=== PATIENT | male | born 1955 | race Caucasian/White ===

== ENCOUNTER 2016-07-24 14:43 | Inpatient (IN) | payer MEDICAID ==
[2016-07-24] VITALS (9 sets, daily range): BP systolic 85–152; BP diastolic 45–109
[~2016-07-24] VITALS: Ht 175.3 cm; Wt 95.3 kg
[~2016-07-24 14:43] MED LIST: ACID1TAB12 GT; AMIN30LI2 GT; BLOO-129 IN; INSU100V10 SQ; INSU100V26 SQ; LISI10TA5 GT; NUT.237L67 GT; OMEP40CA37 GT; OXCA600T5 GT; PRED5TAB GT; TRAM50TA2 GT; TYLENOL LI160 MG/5 M GT; VIT1TABL46 GT
[2016-07-24] MEDS ORDERED: IPRA0.2S9 IH ×2 (15:23)
[2016-07-24] MEDS ORDERED: ZINC220C8 GT (15:23)
[2016-07-24] MEDS ORDERED: LEVE100S GT (15:23)
[2016-07-24] MEDS ORDERED: ALBU2.5V12 IH ×2 (15:23)
[2016-07-24] MEDS ORDERED: PRED10TA GT (15:23)
[2016-07-24] MEDS ORDERED: ERGO50003 GT (15:23)
[2016-07-24] MEDS ORDERED: METO5SOL2 GT (15:23)
[2016-07-24 15:38] LABS: BASOPHILS % (AUTO) 0.1 % (0.0-2.0); DIFF TOTAL % 100 %; EOSINOPHILS % (AUTO) 0.1 % (0.0-6.0); HEMATOCRIT 25 % (39-51); HEMOGLOBIN 7.8 g/dL (13.5-17.5); LYMPHOCYTES # (AUTO) 0.7 /CMM (0.8-4.8); LYMPHOCYTES % (AUTO) 2.6 % (20.0-44.0); MEAN CORPUSCULAR HEMOGLOBIN 30 PG (26.0-33.0); MEAN CORPUSCULAR HGB CONC 32 g/dl (31.0-36.0); MEAN CORPUSCULAR VOLUME 93 fL (80-96); MONOCYTES # (AUTO) 0.3 /CMM (0.1-1.30); MONOCYTES % (AUTO) 1.2 % (2.0-12.0); NEUTROPHILS # (AUTO) 27.2 /CMM (1.8-8.9); PLATELET COUNT (AUTO) 425 /CMM (150-450); RED BLOOD CELL COUNT(AUTO) 2.63 MIL/uL (4.5-6.0); WHITE BLOOD COUNT (AUTO) 28.2 K/uL (4.3-11.0)
[2016-07-24 15:50] LABS: CALCIUM, SERUM 9.8 mg/dL (8.5-10.1); CREATININE 2.9 mg/dL (0.6-1.3); POTASSIUM 4.1 mmol/L (3.5-5.1)
[2016-07-24 15:53] LABS: INR 1.04 (0.87-1.13); PROTHROMBIN TIME 10.9 SECS (9.5-12.7)
[2016-07-24 15:55] LABS: ALBUMIN 2.3 g/dL (3.4-5.0); BILIRUBIN,DIRECT 0.2 mg/dL (0.0-0.2); BILIRUBIN,TOTAL 0.4 mg/dL (0.2-1.0); INDIRECT BILIRUBIN 0.2 mg/dL (0.0-1.1); TOTAL PROTEIN, SERUM 7.8 g/dL (6.4-8.2)
[2016-07-24] MEDS ORDERED: VANCOMYCIN 1 GM in IV D5W 250 ML IV ONE (16:30)
[2016-07-24] MEDS ORDERED: IV NS 0.9% 1,000 ML BAG IV ONE (16:30)
[2016-07-24] MEDS ORDERED: LEVOFLOXACIN 750 MG /D5W 150ML 150 ML IV ONE ×2 (16:30→16:42)
[2016-07-24] MEDS ORDERED: IV SET PRIMARY 1 EA INFUS.SET MC ONE ×2 (16:43→16:44)
[2016-07-24] MEDS ORDERED: IV NS 0.9% 3,000 ML ONE (16:43)
[2016-07-24] MEDS ORDERED: IV SET PRIMARY PUMP SET 1 EA INFUS.SET MC ONE (16:43)
[2016-07-24 16:56] LABS: LACTIC ACID 1.7 mmol/L (0.4-2.0)
[2016-07-24] MEDS ORDERED: PIPERACILLIN /TAZOBACTAM 3.375 G in IV D5W 50 ML IV ONE (17:00)
[2016-07-24 17:27] LABS: BAND % (MANUAL) 5 % (0.0-5.0); EOSINOPHILS % (MANUAL) 1 % (0-4); LYMPHOCYTES % (MANUAL) 4 % (16-48); METAMYELOCYTES % 3 % (0-0); MYELOCYTES % 2 % (0-0)
[2016-07-24 17:32] LABS: TROPONIN I < 0.017 ng/mL (0.00-0.056)
[2016-07-24] MEDS ORDERED: IV NS 0.9% 250 ML IV ONE ×2 (17:32→20:43)
[2016-07-24] MEDS ORDERED: BLOOD IV SET 1 EA INFUS.SET MC ONE (20:43)
[2016-07-25] VITALS (7 sets, daily range): BP systolic 85–110; BP diastolic 48–63
[2016-07-25] MEDS ORDERED: PIPERACILLIN /TAZOBACTAM 2.25 G VIAL IV ONE (00:25)
[2016-07-25] MEDS ORDERED: SECONDARY IV SET 1 EA INFUS.SET MC ONE ×6 (00:26→22:35)
[2016-07-25] MEDS ORDERED: IV D5W 50 ML IV ONE (00:26)
[2016-07-25] MEDS ORDERED: IV SET PRIMARY PUMP SET 1 EA INFUS.SET MC ONE (00:26)
[2016-07-25] MEDS ORDERED: IV NS 0.9% 250 ML IV ONE (00:27)
[2016-07-25] MEDS ORDERED: INSULIN REGULAR, HUMAN 100 UNIT/ML 3 ML VIAL SQ PRN (01:30)
[2016-07-25] MEDS ORDERED: DEXTROSE 50%-WATER 50 ML DISP.SYRIN IV PRN (01:30)
[2016-07-25] MEDS ORDERED: DOCUSATE SODIUM 100 MG CAPSULE PO PRN (02:00)
[2016-07-25] MEDS ORDERED: ACETAMINOPHEN 650 MG/20.3 ML UDC ONE (06:00)
[2016-07-25] MEDS ORDERED: ACETAMINOPHEN LIQUID 160 MG/5 ML BOTTLE GT PRN ×2 (06:00)
[2016-07-25] MEDS: BLOOD SUGAR DIAGNOSTIC 1 EACH STRIP IN SCH ×4 (06:55→23:53)
[2016-07-25 06:58] LABS: ALBUMIN 1.9 g/dL (3.4-5.0); BILIRUBIN,DIRECT 0.4 mg/dL (0.0-0.2); BILIRUBIN,TOTAL 0.7 mg/dL (0.2-1.0); CREATININE 3.4 mg/dL (0.6-1.3); INDIRECT BILIRUBIN 0.3 mg/dL (0.0-1.1); TOTAL PROTEIN, SERUM 6.4 g/dL (6.4-8.2)
[2016-07-25 07:07] LABS: THYROID STIMULATING HORMONE 1.1 uIU/mL (0.358-3.74)
[2016-07-25 08:11] LABS: BASOPHILS % (AUTO) 0.1 % (0.0-2.0); DIFF TOTAL % 100 %; HEMATOCRIT 21 % (39-51); LYMPHOCYTES # (AUTO) 1.1 /CMM (0.8-4.8); LYMPHOCYTES % (AUTO) 2.7 % (20.0-44.0); MEAN CORPUSCULAR HEMOGLOBIN 29 PG (26.0-33.0); MEAN CORPUSCULAR HGB CONC 33 g/dl (31.0-36.0); MEAN CORPUSCULAR VOLUME 89 fL (80-96); MONOCYTES # (AUTO) 0.8 /CMM (0.1-1.30); MONOCYTES % (AUTO) 2.1 % (2.0-12.0); NEUTROPHILS # (AUTO) 37.1 /CMM (1.8-8.9); NEUTROPHILS % (AUTO) 95.1 % (43.0-81.0); PLATELET COUNT (AUTO) 280 /CMM (150-450); RED BLOOD CELL COUNT(AUTO) 2.38 MIL/uL (4.5-6.0)
[2016-07-25] MEDS: PIPERACILLIN /TAZOBACTAM 2.25 G in IV D5W 50 ML IV SCH ×4 (08:15→12:22)
[2016-07-25] MEDS: LEVETIRACETAM SOL (5 ML) 100 MG/ML UDC PO SCH ×3 (08:43→16:16)
[2016-07-25] MEDS ORDERED: ACETAMINOPHEN 650 MG/20.3 ML UDC PO PRN (09:00)
[2016-07-25 09:23] LABS: BAND % (MANUAL) 23 % (0.0-5.0); LYMPHOCYTES % (MANUAL) 3 % (16-48)
[2016-07-25 09:24] LABS: ANISOCYTOSIS 1+; HYPOCHROMASIA 1+; PLATELET ESTIMATE ADEQUATE
[2016-07-25] MEDS: VIT B CMPLX 3/FA/VIT C/BIOTIN 1 TAB TABLET GT SCH (10:30)
[2016-07-25] MEDS: ZINC SULFATE 220 MG CAPSULE GT SCH (10:30)
[2016-07-25] MEDS ORDERED: METOCLOPRAMIDE HCL 10 MG/10 ML UDC GT PRN (10:30)
[2016-07-25] MEDS ORDERED: ALBUTEROL FS 2.5 MG/0.5 ML VIAL.NEB IH PRN (10:30)
[2016-07-25] MEDS ORDERED: ACETAMINOPHEN 640 MG GT PRN (10:30)
[2016-07-25] MEDS ORDERED: IPRATROPIUM NEB FS 0.5 MG/2.5 ML AMPUL.NEB IH PRN (11:00)
[2016-07-25] MEDS: LISINOPRIL (10MG) 10 MG TABLET GT SCH (12:23)
[2016-07-25] MEDS: predniSONE 10 MG TABLET GT SCH (12:23)
[2016-07-25] MEDS: PROSOURCE / PROSTAT (PYXIS) 30 ML UDC GT SCH ×2 (12:23→16:16)
[2016-07-25] MEDS: OXCARBAZEPINE 150 MG TABLET GT SCH ×2 (12:24→21:02)
[2016-07-25] MEDS: ALBUTEROL FS 2.5 MG/0.5 ML VIAL.NEB IH SCH ×2 (13:52→20:02)
[2016-07-25] MEDS: IPRATROPIUM NEB FS 0.5 MG/2.5 ML AMPUL.NEB IH SCH ×2 (13:52→20:02)
[2016-07-25] MEDS ORDERED: Z GUARD REMEDY 2 OZ OINT TP PRN (14:00)
[2016-07-25] MEDS ORDERED: METRONIDAZOLE 500 MG TABLET GT SCH (14:30)
[2016-07-25] MEDS ORDERED: FEE PK DOSING 1 MIN EA MC ONE ×2 (14:47)
[2016-07-25] MEDS: Z GUARD REMEDY 2 OZ OINT TP SCH ×2 (14:49→17:07)
[2016-07-25] MEDS: NEOMY SULF/BACITRAC ZN/POLY 15 GM TUBE TP SCH (15:00)
[2016-07-25] MEDS ORDERED: VANCOMYCIN 1 GM in IV D5W 250 ML IV ONE (16:00)
[2016-07-25] MEDS ORDERED: GENTAMICIN 120 MG in IV D5W 100 ML IV ONE (17:00)
[2016-07-25] MEDS ORDERED: DOSING PER PHARMACY-AMIKACI IV XX PRN (19:00)
[2016-07-25] MEDS: EPOETIN ALFA (10,000 UNIT) 10,000 UNIT/ML VIAL SQ PRN (20:56)
[2016-07-25] MEDS ORDERED: AMIKACIN 500 MG in IV D5W 100 ML IV ONE (21:00)
[2016-07-25] MEDS: ATORVASTATIN 10 MG TABLET PO SCH (21:02)
[2016-07-25] MEDS: METRONIDAZOLE 500MG/ NS 100ML 500 MG in PREMIX 1 EA IV SCH (21:02)
[2016-07-25] MEDS: ACIDOPHILUS/BULGARICUS 1 EACH TAB.CHEW GT SCH (21:02)
[2016-07-25] MEDS: INSULIN DETEMIR 100 UNIT/ML CARTRIDGE SQ SCH (21:08)
[2016-07-26] VITALS (12 sets, daily range): BP systolic 99–135; BP diastolic 43–78
[2016-07-26] MEDS: ALBUTEROL FS 2.5 MG/0.5 ML VIAL.NEB IH SCH ×4 (01:41→19:10)
[2016-07-26] MEDS: IPRATROPIUM NEB FS 0.5 MG/2.5 ML AMPUL.NEB IH SCH ×4 (01:41→19:10)
[2016-07-26] MEDS ORDERED: IV NS 0.9% 250 ML IV ONE ×3 (01:58→07:22)
[2016-07-26] MEDS ORDERED: BLOOD IV SET 1 EA INFUS.SET MC ONE ×2 (01:58→07:20)
[2016-07-26] MEDS: METRONIDAZOLE 500MG/ NS 100ML 500 MG in PREMIX 1 EA IV SCH ×3 (05:47→21:29)
[2016-07-26] MEDS: BLOOD SUGAR DIAGNOSTIC 1 EACH STRIP IN SCH ×3 (05:50→18:02)
[2016-07-26] MEDS ORDERED: INSULIN REGULAR, HUMAN 100 UNIT/ML 3 ML VIAL SQ PRN (06:00)
[2016-07-26] MEDS ORDERED: Medication Not On Formulary EA (Omeprazole 40 MG) GT SCH (07:30)
[2016-07-26 07:52] LABS: BASOPHILS # (AUTO) 0.1 /CMM (0.0-0.2); BASOPHILS % (AUTO) 0.3 % (0.0-2.0); DIFF TOTAL % 100 %; EOSINOPHILS # (AUTO) 0.1 /CMM (0.0-0.7); EOSINOPHILS % (AUTO) 0.3 % (0.0-6.0); HEMATOCRIT 25 % (39-51); HEMOGLOBIN 8.2 g/dL (13.5-17.5); LYMPHOCYTES # (AUTO) 1.9 /CMM (0.8-4.8); LYMPHOCYTES % (AUTO) 10.3 % (20.0-44.0); MEAN CORPUSCULAR HEMOGLOBIN 30 PG (26.0-33.0); MEAN CORPUSCULAR HGB CONC 34 g/dl (31.0-36.0); MEAN CORPUSCULAR VOLUME 89 fL (80-96); MONOCYTES # (AUTO) 1.4 /CMM (0.1-1.30); MONOCYTES % (AUTO) 7.6 % (2.0-12.0); NEUTROPHILS # (AUTO) 14.7 /CMM (1.8-8.9); NEUTROPHILS % (AUTO) 81.5 % (43.0-81.0); PLATELET COUNT (AUTO) 280 /CMM (150-450); RED BLOOD CELL COUNT(AUTO) 2.77 MIL/uL (4.5-6.0)
[2016-07-26 08:06] LABS: CALCIUM, SERUM 8.8 mg/dL (8.5-10.1); CREATININE 3.3 mg/dL (0.6-1.3); POTASSIUM 3.4 mmol/L (3.5-5.1)
[2016-07-26] MEDS: PROSOURCE / PROSTAT (PYXIS) 30 ML UDC GT SCH ×3 (08:45→17:23)
[2016-07-26] MEDS: OXCARBAZEPINE 150 MG TABLET GT SCH ×2 (08:45→21:29)
[2016-07-26] MEDS: ZINC SULFATE 220 MG CAPSULE GT SCH (08:45)
[2016-07-26] MEDS: ACIDOPHILUS/BULGARICUS 1 EACH TAB.CHEW GT SCH ×2 (08:45→21:28)
[2016-07-26] MEDS: LEVETIRACETAM SOL (5 ML) 100 MG/ML UDC PO SCH ×3 (08:45→17:23)
[2016-07-26] MEDS: VIT B CMPLX 3/FA/VIT C/BIOTIN 1 TAB TABLET GT SCH (08:45)
[2016-07-26] MEDS: PANTOPRAZOLE 40 MG/PACK PACK GT SCH (08:45)
[2016-07-26] MEDS: predniSONE 10 MG TABLET GT SCH (08:45)
[2016-07-26] MEDS: Z GUARD REMEDY 2 OZ OINT TP SCH ×2 (08:46→17:24)
[2016-07-26] MEDS: NEOMY SULF/BACITRAC ZN/POLY 15 GM TUBE TP SCH (08:46)
[2016-07-26] MEDS: LISINOPRIL (10MG) 10 MG TABLET GT SCH (10:50)
[2016-07-26] MEDS: INSULIN REGULAR, HUMAN 100 UNIT/ML 3 ML VIAL SQ PRN (18:05)
[2016-07-26] MEDS: AMIKACIN 500 MG in IV D5W 100 ML IV PRN (18:45)
[2016-07-26] MEDS: ATORVASTATIN 10 MG TABLET PO SCH (21:28)
[2016-07-26] MEDS: INSULIN DETEMIR 100 UNIT/ML CARTRIDGE SQ SCH (21:42)
[2016-07-27] VITALS: BP 134/91
[2016-07-27] MEDS: BLOOD SUGAR DIAGNOSTIC 1 EACH STRIP IN SCH ×4 (00:44→17:43)
[2016-07-27] MEDS: INSULIN REGULAR, HUMAN 100 UNIT/ML 3 ML VIAL SQ PRN ×4 (00:46→17:46)
[2016-07-27] MEDS: IPRATROPIUM NEB FS 0.5 MG/2.5 ML AMPUL.NEB IH SCH ×4 (01:10→19:26)
[2016-07-27] MEDS: ALBUTEROL FS 2.5 MG/0.5 ML VIAL.NEB IH SCH ×4 (01:10→19:26)
[2016-07-27 04:00] VITALS: BP 144/79
[2016-07-27] MEDS: METRONIDAZOLE 500MG/ NS 100ML 500 MG in PREMIX 1 EA IV SCH ×3 (05:18→21:01)
[2016-07-27 07:36] LABS: BASOPHILS % (AUTO) 0.4 % (0.0-2.0); DIFF TOTAL % 100 %; EOSINOPHILS # (AUTO) 0.1 /CMM (0.0-0.7); EOSINOPHILS % (AUTO) 0.6 % (0.0-6.0); HEMATOCRIT 26 % (39-51); HEMOGLOBIN 8.6 g/dL (13.5-17.5); LYMPHOCYTES # (AUTO) 1.7 /CMM (0.8-4.8); LYMPHOCYTES % (AUTO) 13.6 % (20.0-44.0); MEAN CORPUSCULAR HEMOGLOBIN 30 PG (26.0-33.0); MEAN CORPUSCULAR HGB CONC 34 g/dl (31.0-36.0); MEAN CORPUSCULAR VOLUME 88 fL (80-96); MONOCYTES # (AUTO) 1.3 /CMM (0.1-1.30); MONOCYTES % (AUTO) 9.8 % (2.0-12.0); NEUTROPHILS # (AUTO) 9.6 /CMM (1.8-8.9); NEUTROPHILS % (AUTO) 75.6 % (43.0-81.0); PLATELET COUNT (AUTO) 258 /CMM (150-450); WHITE BLOOD COUNT (AUTO) 12.7 K/uL (4.3-11.0)
[2016-07-27 07:40] LABS: CALCIUM, SERUM 8.2 mg/dL (8.5-10.1); CREATININE 3.1 mg/dL (0.6-1.3)
[2016-07-27 08:00] VITALS: BP 112/72
[2016-07-27 08:09] LABS: POTASSIUM 2.8 mmol/L (3.5-5.1)
[2016-07-27] MEDS: ZINC SULFATE 220 MG CAPSULE GT SCH (09:13)
[2016-07-27] MEDS: PROSOURCE / PROSTAT (PYXIS) 30 ML UDC GT SCH ×3 (09:13→17:42)
[2016-07-27] MEDS: OXCARBAZEPINE 150 MG TABLET GT SCH ×2 (09:14→21:01)
[2016-07-27] MEDS: ACIDOPHILUS/BULGARICUS 1 EACH TAB.CHEW GT SCH ×2 (09:14→21:01)
[2016-07-27] MEDS: VIT B CMPLX 3/FA/VIT C/BIOTIN 1 TAB TABLET GT SCH (09:14)
[2016-07-27] MEDS: PANTOPRAZOLE 40 MG/PACK PACK GT SCH (09:14)
[2016-07-27] MEDS: predniSONE 10 MG TABLET GT SCH (09:14)
[2016-07-27] MEDS: LEVETIRACETAM SOL (5 ML) 100 MG/ML UDC PO SCH ×3 (09:14→17:42)
[2016-07-27] MEDS: NEOMY SULF/BACITRAC ZN/POLY 15 GM TUBE TP SCH (09:15)
[2016-07-27] MEDS: Z GUARD REMEDY 2 OZ OINT TP SCH ×2 (09:15→17:42)
[2016-07-27] MEDS: LISINOPRIL (10MG) 10 MG TABLET GT SCH (09:15)
[2016-07-27] MEDS ORDERED: POTASSIUM CHLORIDE 20 MEQ TAB.PRT.SR PO ONE (11:30)
[2016-07-27 12:00] VITALS: BP 139/61
[2016-07-27] MEDS: VANCOMYCIN 500 MG in IV D5W 100 ML IV PRN (13:34)
[2016-07-27] MEDS: AMIKACIN 500 MG in IV D5W 100 ML IV PRN (15:32)
[2016-07-27 16:00] VITALS: BP 116/50
[2016-07-27 20:00] VITALS: BP 140/80
[2016-07-27] MEDS: ATORVASTATIN 10 MG TABLET PO SCH (21:01)
[2016-07-27] MEDS: INSULIN DETEMIR 100 UNIT/ML CARTRIDGE SQ SCH (21:14)
[2016-07-28] VITALS: BP 138/79
[2016-07-28] MEDS: IPRATROPIUM NEB FS 0.5 MG/2.5 ML AMPUL.NEB IH SCH ×4 (00:54→19:15)
[2016-07-28] MEDS: ALBUTEROL FS 2.5 MG/0.5 ML VIAL.NEB IH SCH ×4 (00:54→19:15)
[2016-07-28 04:00] VITALS: BP 141/94
[2016-07-28] MEDS: BLOOD SUGAR DIAGNOSTIC 1 EACH STRIP IN SCH ×5 (05:26→23:44)
[2016-07-28] MEDS: METRONIDAZOLE 500MG/ NS 100ML 500 MG in PREMIX 1 EA IV SCH ×3 (05:27→21:23)
[2016-07-28 06:55] LABS: CALCIUM, SERUM 8.5 mg/dL (8.5-10.1); CREATININE 3.4 mg/dL (0.6-1.3); POTASSIUM 3.3 mmol/L (3.5-5.1)
[2016-07-28] MEDS: PANTOPRAZOLE 40 MG/PACK PACK GT SCH (06:55)
[2016-07-28] MEDS: TRAMADOL HCL 50 MG TABLET GT PRN (06:55)
[2016-07-28] MEDS: ACETAMINOPHEN 650 MG/20.3 ML UDC GT PRN ×2 (06:55→13:55)
[2016-07-28 08:00] VITALS: BP 122/60
[2016-07-28] MEDS: OXCARBAZEPINE 150 MG TABLET GT SCH ×2 (08:39→21:23)
[2016-07-28] MEDS: ERGOCALCIFEROL (VITAMIN D 2) 50,000 UNIT CAPSULE GT SCH (08:39)
[2016-07-28] MEDS: ACIDOPHILUS/BULGARICUS 1 EACH TAB.CHEW GT SCH ×2 (08:39→21:23)
[2016-07-28] MEDS: ZINC SULFATE 220 MG CAPSULE GT SCH (08:40)
[2016-07-28] MEDS: PROSOURCE / PROSTAT (PYXIS) 30 ML UDC GT SCH ×3 (08:40→17:27)
[2016-07-28] MEDS: VIT B CMPLX 3/FA/VIT C/BIOTIN 1 TAB TABLET GT SCH (08:40)
[2016-07-28] MEDS: LEVETIRACETAM SOL (5 ML) 100 MG/ML UDC PO SCH ×3 (08:40→17:27)
[2016-07-28] MEDS: LISINOPRIL (10MG) 10 MG TABLET GT SCH (08:40)
[2016-07-28] MEDS: predniSONE 10 MG TABLET GT SCH (08:41)
[2016-07-28] MEDS: Z GUARD REMEDY 2 OZ OINT TP SCH ×2 (08:42→17:28)
[2016-07-28] MEDS: NEOMY SULF/BACITRAC ZN/POLY 15 GM TUBE TP SCH (08:42)
[2016-07-28] MEDS ORDERED: CHOLECALCIFEROL 1,000 UNIT TABLET (VIT D3) PO SCH (09:00)
[2016-07-28 12:00] VITALS: BP 76/42
[2016-07-28] MEDS ORDERED: IV NS 0.9% 250 ML IV ONE (12:00)
[2016-07-28 16:00] VITALS: BP 112/45
[2016-07-28] MEDS: INSULIN REGULAR, HUMAN 100 UNIT/ML 3 ML VIAL SQ PRN ×2 (17:33→23:46)
[2016-07-28 20:00] VITALS: BP_SYST 99; BP_DIAS 39; BP_DIAS 54
[2016-07-28] MEDS: RENAL NOVASOURCE 1,000 ML BOTTLE GT PRN (21:22)
[2016-07-28] MEDS: ATORVASTATIN 10 MG TABLET PO SCH (21:23)
[2016-07-28] MEDS: INSULIN DETEMIR 100 UNIT/ML CARTRIDGE SQ SCH (21:27)
[2016-07-29] VITALS (8 sets, daily range): BP systolic 97–152; BP diastolic 41–71
[2016-07-29] MEDS: IPRATROPIUM NEB FS 0.5 MG/2.5 ML AMPUL.NEB IH SCH ×4 (01:20→19:12)
[2016-07-29] MEDS: ALBUTEROL FS 2.5 MG/0.5 ML VIAL.NEB IH SCH ×4 (01:20→19:12)
[2016-07-29] MEDS: BLOOD SUGAR DIAGNOSTIC 1 EACH STRIP IN SCH ×4 (05:13→23:03)
[2016-07-29] MEDS: INSULIN REGULAR, HUMAN 100 UNIT/ML 3 ML VIAL SQ PRN ×4 (05:15→23:01)
[2016-07-29] MEDS: METRONIDAZOLE 500MG/ NS 100ML 500 MG in PREMIX 1 EA IV SCH ×3 (05:18→21:35)
[2016-07-29] MEDS ORDERED: IV SET PRIMARY PUMP SET 1 EA INFUS.SET MC ONE (05:34)
[2016-07-29] MEDS ORDERED: IV NS 0.9% 250 ML IV ONE (05:34)
[2016-07-29] MEDS: PANTOPRAZOLE 40 MG/PACK PACK GT SCH (06:52)
[2016-07-29 07:19] LABS: CALCIUM, SERUM 8.2 mg/dL (8.5-10.1); CREATININE 4.5 mg/dL (0.6-1.3); POTASSIUM 3.5 mmol/L (3.5-5.1)
[2016-07-29 07:38] LABS: DIFF TOTAL % 100 %; EOSINOPHILS # (AUTO) 0.2 /CMM (0.0-0.7); EOSINOPHILS % (AUTO) 0.6 % (0.0-6.0); HEMATOCRIT 30 % (39-51); HEMOGLOBIN 9.9 g/dL (13.5-17.5); LYMPHOCYTES # (AUTO) 1.4 /CMM (0.8-4.8); LYMPHOCYTES % (AUTO) 4.3 % (20.0-44.0); MEAN CORPUSCULAR HEMOGLOBIN 30 PG (26.0-33.0); MEAN CORPUSCULAR HGB CONC 34 g/dl (31.0-36.0); MEAN CORPUSCULAR VOLUME 91 fL (80-96); MONOCYTES % (AUTO) 2.9 % (2.0-12.0); NEUTROPHILS # (AUTO) 30.1 /CMM (1.8-8.9); NEUTROPHILS % (AUTO) 92.2 % (43.0-81.0); PLATELET COUNT (AUTO) 287 /CMM (150-450); RED BLOOD CELL COUNT(AUTO) 3.25 MIL/uL (4.5-6.0)
[2016-07-29] MEDS: LEVETIRACETAM SOL (5 ML) 100 MG/ML UDC PO SCH ×3 (08:47→17:25)
[2016-07-29] MEDS: ZINC SULFATE 220 MG CAPSULE GT SCH (08:48)
[2016-07-29] MEDS: ACIDOPHILUS/BULGARICUS 1 EACH TAB.CHEW GT SCH ×2 (08:48→21:36)
[2016-07-29] MEDS: VIT B CMPLX 3/FA/VIT C/BIOTIN 1 TAB TABLET GT SCH (08:48)
[2016-07-29] MEDS: LISINOPRIL (10MG) 10 MG TABLET GT SCH (08:48)
[2016-07-29] MEDS: PROSOURCE / PROSTAT (PYXIS) 30 ML UDC GT SCH ×3 (08:48→17:25)
[2016-07-29] MEDS: OXCARBAZEPINE 150 MG TABLET GT SCH ×2 (08:51→21:35)
[2016-07-29] MEDS: Z GUARD REMEDY 2 OZ OINT TP SCH ×2 (08:51→17:30)
[2016-07-29] MEDS: predniSONE 10 MG TABLET GT SCH (08:51)
[2016-07-29] MEDS: NEOMY SULF/BACITRAC ZN/POLY 15 GM TUBE TP SCH (08:52)
[2016-07-29 09:04] LABS: WHITE BLOOD COUNT (AUTO) 32.6 K/uL (4.3-11.0)
[2016-07-29 12:25] LABS: LYMPHOCYTES % (MANUAL) 4 % (16-48); PLATELET ESTIMATE ADEQUATE
[2016-07-29] MEDS ORDERED: SECONDARY IV SET 1 EA INFUS.SET MC ONE (12:54)
[2016-07-29] MEDS: COLISTIMETHATE SODIUM 100 MG in IV NS 0.9% 50 ML IV SCH (18:09)
[2016-07-29] MEDS: VANCOMYCIN 500 MG in IV D5W 100 ML IV PRN (18:09)
[2016-07-29] MEDS: ATORVASTATIN 10 MG TABLET PO SCH (21:36)
[2016-07-29] MEDS: INSULIN DETEMIR 100 UNIT/ML CARTRIDGE SQ SCH (23:00)
[2016-07-30] VITALS (9 sets, daily range): BP systolic 98–122; BP diastolic 38–58
[2016-07-30] MEDS: ALBUTEROL FS 2.5 MG/0.5 ML VIAL.NEB IH SCH ×4 (01:45→20:01)
[2016-07-30] MEDS: IPRATROPIUM NEB FS 0.5 MG/2.5 ML AMPUL.NEB IH SCH ×4 (01:45→20:01)
[2016-07-30] MEDS ORDERED: IV NS 0.9% 250 ML IV ONE (04:21)
[2016-07-30] MEDS: RENAL NOVASOURCE 1,000 ML BOTTLE GT PRN (04:28)
[2016-07-30] MEDS: METRONIDAZOLE 500MG/ NS 100ML 500 MG in PREMIX 1 EA IV SCH ×3 (04:28→21:38)
[2016-07-30] MEDS ORDERED: SECONDARY IV SET 1 EA INFUS.SET MC ONE (05:35)
[2016-07-30] MEDS: COLISTIMETHATE SODIUM 100 MG in IV NS 0.9% 50 ML IV SCH ×2 (05:39→18:29)
[2016-07-30] MEDS: BLOOD SUGAR DIAGNOSTIC 1 EACH STRIP IN SCH ×3 (05:39→18:15)
[2016-07-30] MEDS: INSULIN REGULAR, HUMAN 100 UNIT/ML 3 ML VIAL SQ PRN ×3 (05:43→18:26)
[2016-07-30 06:02] LABS: BASOPHILS % (AUTO) 0.2 % (0.0-2.0); DIFF TOTAL % 100 %; EOSINOPHILS # (AUTO) 0.4 /CMM (0.0-0.7); EOSINOPHILS % (AUTO) 1.7 % (0.0-6.0); HEMATOCRIT 29 % (39-51); HEMOGLOBIN 9.6 g/dL (13.5-17.5); LYMPHOCYTES # (AUTO) 1.8 /CMM (0.8-4.8); LYMPHOCYTES % (AUTO) 7.5 % (20.0-44.0); MEAN CORPUSCULAR HEMOGLOBIN 30 PG (26.0-33.0); MEAN CORPUSCULAR HGB CONC 33 g/dl (31.0-36.0); MEAN CORPUSCULAR VOLUME 90 fL (80-96); MONOCYTES # (AUTO) 1.9 /CMM (0.1-1.30); MONOCYTES % (AUTO) 8.1 % (2.0-12.0); NEUTROPHILS # (AUTO) 19.5 /CMM (1.8-8.9); NEUTROPHILS % (AUTO) 82.5 % (43.0-81.0); PLATELET COUNT (AUTO) 291 /CMM (150-450); RED BLOOD CELL COUNT(AUTO) 3.19 MIL/uL (4.5-6.0); WHITE BLOOD COUNT (AUTO) 23.6 K/uL (4.3-11.0)
[2016-07-30 06:27] LABS: CALCIUM, SERUM 8.1 mg/dL (8.5-10.1); CREATININE 5.2 mg/dL (0.6-1.3); POTASSIUM 3.5 mmol/L (3.5-5.1)
[2016-07-30] MEDS: PANTOPRAZOLE 40 MG/PACK PACK GT SCH (08:50)
[2016-07-30] MEDS: ACIDOPHILUS/BULGARICUS 1 EACH TAB.CHEW GT SCH ×2 (08:50→21:38)
[2016-07-30] MEDS: ZINC SULFATE 220 MG CAPSULE GT SCH (08:51)
[2016-07-30] MEDS: VIT B CMPLX 3/FA/VIT C/BIOTIN 1 TAB TABLET GT SCH (08:51)
[2016-07-30] MEDS: LISINOPRIL (10MG) 10 MG TABLET GT SCH (08:52)
[2016-07-30] MEDS: predniSONE 10 MG TABLET GT SCH (08:53)
[2016-07-30] MEDS: PROSOURCE / PROSTAT (PYXIS) 30 ML UDC GT SCH ×3 (08:54→18:15)
[2016-07-30] MEDS: OXCARBAZEPINE 150 MG TABLET GT SCH ×2 (08:54→21:38)
[2016-07-30] MEDS: LEVETIRACETAM SOL (5 ML) 100 MG/ML UDC PO SCH ×3 (08:55→18:15)
[2016-07-30] MEDS: Z GUARD REMEDY 2 OZ OINT TP SCH ×2 (09:08→18:15)
[2016-07-30] MEDS: NEOMY SULF/BACITRAC ZN/POLY 15 GM TUBE TP SCH (09:17)
[2016-07-30 10:03] LABS: ANISOCYTOSIS 2+; EOSINOPHILS % (MANUAL) 2 % (0-4); LYMPHOCYTES % (MANUAL) 13 % (16-48); PLATELET ESTIMATE ADEQUATE; POLYCHROMASIA 1+
[2016-07-30] MEDS: ATORVASTATIN 10 MG TABLET PO SCH (21:39)
[2016-07-30] MEDS: INSULIN DETEMIR 100 UNIT/ML CARTRIDGE SQ SCH (21:40)
[2016-07-31] VITALS (7 sets, daily range): BP systolic 101–153; BP diastolic 41–75
[2016-07-31] MEDS: BLOOD SUGAR DIAGNOSTIC 1 EACH STRIP IN SCH ×5 (00:54→23:43)
[2016-07-31] MEDS: INSULIN REGULAR, HUMAN 100 UNIT/ML 3 ML VIAL SQ PRN ×5 (00:56→23:44)
[2016-07-31] MEDS: ALBUTEROL FS 2.5 MG/0.5 ML VIAL.NEB IH SCH ×4 (01:21→19:42)
[2016-07-31] MEDS: IPRATROPIUM NEB FS 0.5 MG/2.5 ML AMPUL.NEB IH SCH ×4 (01:21→19:43)
[2016-07-31] MEDS: COLISTIMETHATE SODIUM 100 MG in IV NS 0.9% 50 ML IV SCH ×2 (06:13→17:41)
[2016-07-31] MEDS: METRONIDAZOLE 500MG/ NS 100ML 500 MG in PREMIX 1 EA IV SCH ×3 (06:34→21:11)
[2016-07-31 07:00] LABS: BASOPHILS # (AUTO) 0.1 /CMM (0.0-0.2); BASOPHILS % (AUTO) 0.6 % (0.0-2.0); DIFF TOTAL % 100 %; EOSINOPHILS # (AUTO) 0.6 /CMM (0.0-0.7); HEMATOCRIT 30 % (39-51); LYMPHOCYTES # (AUTO) 2.9 /CMM (0.8-4.8); LYMPHOCYTES % (AUTO) 15.8 % (20.0-44.0); MEAN CORPUSCULAR HEMOGLOBIN 30 PG (26.0-33.0); MEAN CORPUSCULAR HGB CONC 33 g/dl (31.0-36.0); MEAN CORPUSCULAR VOLUME 90 fL (80-96); MONOCYTES # (AUTO) 1.2 /CMM (0.1-1.30); MONOCYTES % (AUTO) 6.5 % (2.0-12.0); NEUTROPHILS # (AUTO) 13.5 /CMM (1.8-8.9); NEUTROPHILS % (AUTO) 74.1 % (43.0-81.0); PLATELET COUNT (AUTO) 324 /CMM (150-450); RED BLOOD CELL COUNT(AUTO) 3.39 MIL/uL (4.5-6.0)
[2016-07-31 07:26] LABS: CALCIUM, SERUM 8.3 mg/dL (8.5-10.1); CREATININE 5.7 mg/dL (0.6-1.3); POTASSIUM 3.8 mmol/L (3.5-5.1)
[2016-07-31] MEDS: OXCARBAZEPINE 150 MG TABLET GT SCH ×2 (08:08→21:11)
[2016-07-31] MEDS: PANTOPRAZOLE 40 MG/PACK PACK GT SCH (08:08)
[2016-07-31] MEDS: LEVETIRACETAM SOL (5 ML) 100 MG/ML UDC PO SCH ×3 (08:09→17:14)
[2016-07-31] MEDS: ZINC SULFATE 220 MG CAPSULE GT SCH (08:09)
[2016-07-31] MEDS: VIT B CMPLX 3/FA/VIT C/BIOTIN 1 TAB TABLET GT SCH (08:09)
[2016-07-31] MEDS: ACIDOPHILUS/BULGARICUS 1 EACH TAB.CHEW GT SCH ×2 (08:09→21:11)
[2016-07-31] MEDS: predniSONE 10 MG TABLET GT SCH (08:09)
[2016-07-31] MEDS: LISINOPRIL (10MG) 10 MG TABLET GT SCH (08:10)
[2016-07-31] MEDS: PROSOURCE / PROSTAT (PYXIS) 30 ML UDC GT SCH ×3 (08:10→17:14)
[2016-07-31] MEDS: Z GUARD REMEDY 2 OZ OINT TP SCH ×2 (08:13→17:15)
[2016-07-31] MEDS: NEOMY SULF/BACITRAC ZN/POLY 15 GM TUBE TP SCH (08:13)
[2016-07-31 10:05] LABS: WHITE BLOOD COUNT (AUTO) 18.2 K/uL (4.3-11.0)
[2016-07-31] MEDS: RENAL NOVASOURCE 1,000 ML BOTTLE GT PRN (17:40)
[2016-07-31] MEDS: ATORVASTATIN 10 MG TABLET PO SCH (21:11)
[2016-07-31] MEDS: INSULIN DETEMIR 100 UNIT/ML CARTRIDGE SQ SCH (21:27)
[2016-08-01] VITALS (10 sets, daily range): BP systolic 100–131; BP diastolic 40–68
[2016-08-01] MEDS: ALBUTEROL FS 2.5 MG/0.5 ML VIAL.NEB IH SCH ×4 (01:08→20:14)
[2016-08-01] MEDS: IPRATROPIUM NEB FS 0.5 MG/2.5 ML AMPUL.NEB IH SCH ×4 (01:08→20:14)
[2016-08-01] MEDS ORDERED: IV NS 0.9% 250 ML IV ONE (02:27)
[2016-08-01] MEDS: METRONIDAZOLE 500MG/ NS 100ML 500 MG in PREMIX 1 EA IV SCH (05:50)
[2016-08-01] MEDS: BLOOD SUGAR DIAGNOSTIC 1 EACH STRIP IN SCH ×4 (05:50→23:27)
[2016-08-01] MEDS: COLISTIMETHATE SODIUM 100 MG in IV NS 0.9% 50 ML IV SCH ×2 (05:50→18:49)
[2016-08-01 07:14] LABS: BASOPHILS # (AUTO) 0.1 /CMM (0.0-0.2); BASOPHILS % (AUTO) 0.5 % (0.0-2.0); DIFF TOTAL % 100 %; EOSINOPHILS # (AUTO) 0.6 /CMM (0.0-0.7); EOSINOPHILS % (AUTO) 4.4 % (0.0-6.0); HEMATOCRIT 26 % (39-51); HEMOGLOBIN 8.6 g/dL (13.5-17.5); LYMPHOCYTES # (AUTO) 2.3 /CMM (0.8-4.8); LYMPHOCYTES % (AUTO) 16.8 % (20.0-44.0); MEAN CORPUSCULAR HEMOGLOBIN 29 PG (26.0-33.0); MEAN CORPUSCULAR HGB CONC 33 g/dl (31.0-36.0); MEAN CORPUSCULAR VOLUME 89 fL (80-96); MONOCYTES # (AUTO) 0.9 /CMM (0.1-1.30); MONOCYTES % (AUTO) 6.7 % (2.0-12.0); NEUTROPHILS # (AUTO) 9.7 /CMM (1.8-8.9); NEUTROPHILS % (AUTO) 71.6 % (43.0-81.0); PLATELET COUNT (AUTO) 373 /CMM (150-450); RED BLOOD CELL COUNT(AUTO) 2.93 MIL/uL (4.5-6.0); WHITE BLOOD COUNT (AUTO) 13.5 K/uL (4.3-11.0)
[2016-08-01] MEDS: PANTOPRAZOLE 40 MG/PACK PACK GT SCH (07:30)
[2016-08-01] MEDS: ZINC SULFATE 220 MG CAPSULE GT SCH (09:00)
[2016-08-01] MEDS: VIT B CMPLX 3/FA/VIT C/BIOTIN 1 TAB TABLET GT SCH (09:00)
[2016-08-01] MEDS: LISINOPRIL (10MG) 10 MG TABLET GT SCH (09:00)
[2016-08-01] MEDS: OXCARBAZEPINE 150 MG TABLET GT SCH ×2 (09:00→21:08)
[2016-08-01] MEDS: predniSONE 10 MG TABLET GT SCH (09:00)
[2016-08-01] MEDS: ACIDOPHILUS/BULGARICUS 1 EACH TAB.CHEW GT SCH ×2 (09:00→21:08)
[2016-08-01] MEDS: LEVETIRACETAM SOL (5 ML) 100 MG/ML UDC PO SCH ×3 (09:00→17:04)
[2016-08-01] MEDS: PROSOURCE / PROSTAT (PYXIS) 30 ML UDC GT SCH ×3 (09:00→17:04)
[2016-08-01] MEDS: Z GUARD REMEDY 2 OZ OINT TP SCH ×2 (09:11→17:04)
[2016-08-01] MEDS: NEOMY SULF/BACITRAC ZN/POLY 15 GM TUBE TP SCH (09:11)
[2016-08-01] MEDS: METRONIDAZOLE 500 MG TABLET PO SCH ×2 (15:09→21:08)
[2016-08-01] MEDS ORDERED: SECONDARY IV SET 1 EA INFUS.SET MC ONE ×3 (15:59→18:42)
[2016-08-01] MEDS ORDERED: ALBUMIN 25% 25 GM in PREMIX 1 EA IV ONE (16:30)
[2016-08-01] MEDS: FLUCONAZOLE (100 MG) 100 MG TABLET PO SCH (17:04)
[2016-08-01] MEDS: INSULIN REGULAR, HUMAN 100 UNIT/ML 3 ML VIAL SQ PRN (17:15)
[2016-08-01] MEDS: SULFAMETHOXAZOLE/TRIMETHOPRIM 15 ML in IV D5W 250 ML IV SCH (17:40)
[2016-08-01] MEDS ORDERED: SULFAMETHOXAZOLE/TRIMETHOPRIM 15 ML in IV D5W 250 ML IV SCH (21:00)
[2016-08-01] MEDS: ATORVASTATIN 10 MG TABLET PO SCH (21:08)
[2016-08-01] MEDS: EPOETIN ALFA (10,000 UNIT) 10,000 UNIT/ML VIAL SQ PRN (21:09)
[2016-08-01] MEDS: INSULIN DETEMIR 100 UNIT/ML CARTRIDGE SQ SCH (21:10)
[2016-08-02] VITALS: BP 144/91
[2016-08-02] MEDS: ALBUTEROL FS 2.5 MG/0.5 ML VIAL.NEB IH SCH ×4 (01:34→19:46)
[2016-08-02] MEDS: IPRATROPIUM NEB FS 0.5 MG/2.5 ML AMPUL.NEB IH SCH ×4 (01:34→19:46)
[2016-08-02 04:00] VITALS: BP 131/78
[2016-08-02] MEDS: COLISTIMETHATE SODIUM 100 MG in IV NS 0.9% 50 ML IV SCH ×2 (05:01→16:37)
[2016-08-02] MEDS: METRONIDAZOLE 500 MG TABLET PO SCH ×3 (05:01→21:37)
[2016-08-02] MEDS: BLOOD SUGAR DIAGNOSTIC 1 EACH STRIP IN SCH ×4 (05:09→23:14)
[2016-08-02 07:26] LABS: BASOPHILS # (AUTO) 0.1 /CMM (0.0-0.2); BASOPHILS % (AUTO) 0.4 % (0.0-2.0); DIFF TOTAL % 100 %; EOSINOPHILS # (AUTO) 0.8 /CMM (0.0-0.7); EOSINOPHILS % (AUTO) 5.3 % (0.0-6.0); HEMATOCRIT 26 % (39-51); HEMOGLOBIN 8.8 g/dL (13.5-17.5); LYMPHOCYTES # (AUTO) 2.4 /CMM (0.8-4.8); LYMPHOCYTES % (AUTO) 15.6 % (20.0-44.0); MEAN CORPUSCULAR HEMOGLOBIN 30 PG (26.0-33.0); MEAN CORPUSCULAR HGB CONC 33 g/dl (31.0-36.0); MEAN CORPUSCULAR VOLUME 89 fL (80-96); MONOCYTES % (AUTO) 6.5 % (2.0-12.0); NEUTROPHILS # (AUTO) 11.1 /CMM (1.8-8.9); NEUTROPHILS % (AUTO) 72.2 % (43.0-81.0); PLATELET COUNT (AUTO) 372 /CMM (150-450); RED BLOOD CELL COUNT(AUTO) 2.96 MIL/uL (4.5-6.0); WHITE BLOOD COUNT (AUTO) 15.4 K/uL (4.3-11.0)
[2016-08-02 07:40] LABS: CALCIUM, SERUM 8.6 mg/dL (8.5-10.1); CREATININE 5.4 mg/dL (0.6-1.3); POTASSIUM 3.6 mmol/L (3.5-5.1)
[2016-08-02 08:00] VITALS: BP 98/52
[2016-08-02] MEDS: LEVETIRACETAM SOL (5 ML) 100 MG/ML UDC PO SCH ×3 (08:14→16:37)
[2016-08-02] MEDS: VIT B CMPLX 3/FA/VIT C/BIOTIN 1 TAB TABLET GT SCH (08:14)
[2016-08-02] MEDS: ZINC SULFATE 220 MG CAPSULE GT SCH (08:14)
[2016-08-02] MEDS: ACIDOPHILUS/BULGARICUS 1 EACH TAB.CHEW GT SCH ×2 (08:14→21:37)
[2016-08-02] MEDS: FLUCONAZOLE (100 MG) 100 MG TABLET PO SCH (08:14)
[2016-08-02] MEDS: OXCARBAZEPINE 150 MG TABLET GT SCH ×2 (08:14→21:37)
[2016-08-02] MEDS: predniSONE 10 MG TABLET GT SCH (08:14)
[2016-08-02] MEDS: PROSOURCE / PROSTAT (PYXIS) 30 ML UDC GT SCH ×3 (08:14→16:37)
[2016-08-02] MEDS: PANTOPRAZOLE 40 MG/PACK PACK GT SCH (08:14)
[2016-08-02] MEDS: NEOMY SULF/BACITRAC ZN/POLY 15 GM TUBE TP SCH (08:15)
[2016-08-02] MEDS: LISINOPRIL (10MG) 10 MG TABLET GT SCH ×2 (08:15→09:00)
[2016-08-02] MEDS: Z GUARD REMEDY 2 OZ OINT TP SCH ×2 (08:16→16:38)
[2016-08-02] MEDS: INSULIN REGULAR, HUMAN 100 UNIT/ML 3 ML VIAL SQ PRN ×3 (11:54→23:14)
[2016-08-02 12:00] VITALS: BP 126/55
[2016-08-02] MEDS: ACETAMINOPHEN 650 MG/20.3 ML UDC GT PRN ×2 (12:52→17:48)
[2016-08-02 16:00] VITALS: BP 116/47
[2016-08-02] MEDS ORDERED: FLUCONAZOLE IN NS,PREMIX 200 MG in PREMIX 1 EA IV SCH ×2 (18:00)
[2016-08-02] MEDS: SULFAMETHOXAZOLE/TRIMETHOPRIM 15 ML in IV D5W 250 ML IV SCH (18:21)
[2016-08-02 20:00] VITALS: BP 105/62
[2016-08-02] MEDS: INSULIN DETEMIR 100 UNIT/ML CARTRIDGE SQ SCH (21:26)
[2016-08-02] MEDS: VORICONAZOLE 200 MG TABLET PO SCH (21:37)
[2016-08-02] MEDS: ATORVASTATIN 10 MG TABLET PO SCH (21:37)
[2016-08-02] MEDS: RENAL NOVASOURCE 1,000 ML BOTTLE GT PRN (23:13)
[2016-08-03] VITALS (7 sets, daily range): BP systolic 92–117; BP diastolic 36–75
[2016-08-03] MEDS: ALBUTEROL FS 2.5 MG/0.5 ML VIAL.NEB IH SCH ×4 (01:24→19:34)
[2016-08-03] MEDS: IPRATROPIUM NEB FS 0.5 MG/2.5 ML AMPUL.NEB IH SCH ×4 (01:24→19:34)
[2016-08-03] MEDS ORDERED: IV NS 0.9% 250 ML IV ONE (05:24)
[2016-08-03] MEDS: METRONIDAZOLE 500 MG TABLET PO SCH ×3 (05:31→21:16)
[2016-08-03] MEDS: COLISTIMETHATE SODIUM 100 MG in IV NS 0.9% 50 ML IV SCH ×2 (05:31→17:22)
[2016-08-03] MEDS: BLOOD SUGAR DIAGNOSTIC 1 EACH STRIP IN SCH ×3 (05:32→17:26)
[2016-08-03 06:58] LABS: BASOPHILS % (AUTO) 0.2 % (0.0-2.0); DIFF TOTAL % 100 %; EOSINOPHILS # (AUTO) 0.6 /CMM (0.0-0.7); EOSINOPHILS % (AUTO) 4.3 % (0.0-6.0); HEMATOCRIT 27 % (39-51); HEMOGLOBIN 8.8 g/dL (13.5-17.5); LYMPHOCYTES # (AUTO) 2.6 /CMM (0.8-4.8); LYMPHOCYTES % (AUTO) 17.8 % (20.0-44.0); MEAN CORPUSCULAR HEMOGLOBIN 30 PG (26.0-33.0); MEAN CORPUSCULAR HGB CONC 33 g/dl (31.0-36.0); MEAN CORPUSCULAR VOLUME 90 fL (80-96); MONOCYTES # (AUTO) 0.9 /CMM (0.1-1.30); NEUTROPHILS # (AUTO) 10.6 /CMM (1.8-8.9); NEUTROPHILS % (AUTO) 71.7 % (43.0-81.0); PLATELET COUNT (AUTO) 427 /CMM (150-450); RED BLOOD CELL COUNT(AUTO) 2.98 MIL/uL (4.5-6.0); WHITE BLOOD COUNT (AUTO) 14.8 K/uL (4.3-11.0)
[2016-08-03 08:25] LABS: EOSINOPHILS % (MANUAL) 3 % (0-4); LYMPHOCYTES % (MANUAL) 19 % (16-48)
[2016-08-03 08:26] LABS: PLATELET ESTIMATE INCRE
[2016-08-03] MEDS: PROSOURCE / PROSTAT (PYXIS) 30 ML UDC GT SCH ×3 (08:43→16:25)
[2016-08-03] MEDS: VORICONAZOLE 200 MG TABLET PO SCH ×2 (08:45→21:32)
[2016-08-03] MEDS: LISINOPRIL (10MG) 10 MG TABLET GT SCH (08:46)
[2016-08-03] MEDS: ACIDOPHILUS/BULGARICUS 1 EACH TAB.CHEW GT SCH ×2 (08:46→21:15)
[2016-08-03] MEDS: OXCARBAZEPINE 150 MG TABLET GT SCH ×2 (08:46→21:16)
[2016-08-03] MEDS: VIT B CMPLX 3/FA/VIT C/BIOTIN 1 TAB TABLET GT SCH (08:46)
[2016-08-03] MEDS: predniSONE 10 MG TABLET GT SCH (08:46)
[2016-08-03] MEDS: ZINC SULFATE 220 MG CAPSULE GT SCH (08:46)
[2016-08-03] MEDS: PANTOPRAZOLE 40 MG/PACK PACK GT SCH (08:46)
[2016-08-03] MEDS: LEVETIRACETAM SOL (5 ML) 100 MG/ML UDC PO SCH ×3 (08:51→16:25)
[2016-08-03] MEDS: NEOMY SULF/BACITRAC ZN/POLY 15 GM TUBE TP SCH (08:56)
[2016-08-03] MEDS: Z GUARD REMEDY 2 OZ OINT TP SCH ×2 (08:56→16:26)
[2016-08-03 11:27] LABS: CALCIUM, SERUM 8.8 mg/dL (8.5-10.1); CREATININE 4.3 mg/dL (0.6-1.3); PHOSPHORUS 3.9 mg/dL (2.5-4.9); POTASSIUM 3.8 mmol/L (3.5-5.1)
[2016-08-03] MEDS: ACETAMINOPHEN 650 MG/20.3 ML UDC GT PRN (12:44)
[2016-08-03] MEDS: INSULIN REGULAR, HUMAN 100 UNIT/ML 3 ML VIAL SQ PRN ×2 (12:53→17:27)
[2016-08-03] MEDS: SULFAMETHOXAZOLE/TRIMETHOPRIM 15 ML in IV D5W 250 ML IV SCH (18:23)
[2016-08-03] MEDS: ATORVASTATIN 10 MG TABLET PO SCH (21:18)
[2016-08-03] MEDS: INSULIN DETEMIR 100 UNIT/ML CARTRIDGE SQ SCH (21:39)
[2016-08-04] VITALS (10 sets, daily range): BP systolic 93–147; BP diastolic 44–77
[2016-08-04] MEDS: INSULIN REGULAR, HUMAN 100 UNIT/ML 3 ML VIAL SQ PRN ×3 (00:10→23:31)
[2016-08-04] MEDS: BLOOD SUGAR DIAGNOSTIC 1 EACH STRIP IN SCH ×5 (00:14→23:29)
[2016-08-04] MEDS: ALBUTEROL FS 2.5 MG/0.5 ML VIAL.NEB IH SCH ×4 (01:24→19:10)
[2016-08-04] MEDS: IPRATROPIUM NEB FS 0.5 MG/2.5 ML AMPUL.NEB IH SCH ×4 (01:24→19:10)
[2016-08-04] MEDS: METRONIDAZOLE 500 MG TABLET PO SCH ×3 (05:43→21:24)
[2016-08-04] MEDS: COLISTIMETHATE SODIUM 100 MG in IV NS 0.9% 50 ML IV SCH ×2 (05:43→17:23)
[2016-08-04] MEDS: PANTOPRAZOLE 40 MG/PACK PACK GT SCH (06:32)
[2016-08-04 07:06] LABS: BASOPHILS # (AUTO) 0.1 /CMM (0.0-0.2); BASOPHILS % (AUTO) 0.3 % (0.0-2.0); DIFF TOTAL % 100 %; EOSINOPHILS # (AUTO) 0.5 /CMM (0.0-0.7); EOSINOPHILS % (AUTO) 2.7 % (0.0-6.0); HEMATOCRIT 25 % (39-51); HEMOGLOBIN 8.4 g/dL (13.5-17.5); LYMPHOCYTES # (AUTO) 3.4 /CMM (0.8-4.8); LYMPHOCYTES % (AUTO) 19.7 % (20.0-44.0); MEAN CORPUSCULAR HEMOGLOBIN 30 PG (26.0-33.0); MEAN CORPUSCULAR HGB CONC 33 g/dl (31.0-36.0); MEAN CORPUSCULAR VOLUME 90 fL (80-96); MONOCYTES # (AUTO) 0.8 /CMM (0.1-1.30); MONOCYTES % (AUTO) 4.6 % (2.0-12.0); NEUTROPHILS # (AUTO) 12.4 /CMM (1.8-8.9); NEUTROPHILS % (AUTO) 72.7 % (43.0-81.0); PLATELET COUNT (AUTO) 426 /CMM (150-450); RED BLOOD CELL COUNT(AUTO) 2.82 MIL/uL (4.5-6.0)
[2016-08-04 07:38] LABS: CALCIUM, SERUM 8.7 mg/dL (8.5-10.1); PHOSPHORUS 4.9 mg/dL (2.5-4.9); POTASSIUM 3.8 mmol/L (3.5-5.1)
[2016-08-04] MEDS: VIT B CMPLX 3/FA/VIT C/BIOTIN 1 TAB TABLET GT SCH (08:17)
[2016-08-04] MEDS: LEVETIRACETAM SOL (5 ML) 100 MG/ML UDC PO SCH ×3 (08:17→17:21)
[2016-08-04] MEDS: predniSONE 10 MG TABLET GT SCH (08:17)
[2016-08-04] MEDS: OXCARBAZEPINE 150 MG TABLET GT SCH ×2 (08:17→21:24)
[2016-08-04] MEDS: PROSOURCE / PROSTAT (PYXIS) 30 ML UDC GT SCH ×3 (08:17→17:21)
[2016-08-04] MEDS: ACIDOPHILUS/BULGARICUS 1 EACH TAB.CHEW GT SCH ×2 (08:18→21:23)
[2016-08-04] MEDS: ZINC SULFATE 220 MG CAPSULE GT SCH (08:18)
[2016-08-04] MEDS: LISINOPRIL (10MG) 10 MG TABLET GT SCH (08:18)
[2016-08-04] MEDS: VORICONAZOLE 200 MG TABLET PO SCH ×2 (08:18→21:23)
[2016-08-04] MEDS: ERGOCALCIFEROL (VITAMIN D 2) 50,000 UNIT CAPSULE GT SCH (08:24)
[2016-08-04] MEDS: NEOMY SULF/BACITRAC ZN/POLY 15 GM TUBE TP SCH (08:25)
[2016-08-04] MEDS: Z GUARD REMEDY 2 OZ OINT TP SCH ×2 (09:38→17:21)
[2016-08-04] MEDS: SULFAMETHOXAZOLE/TRIMETHOPRIM 15 ML in IV D5W 250 ML IV SCH (18:01)
[2016-08-04] MEDS: EPOETIN ALFA (10,000 UNIT) 10,000 UNIT/ML VIAL SQ PRN (18:01)
[2016-08-04] MEDS ORDERED: SECONDARY IV SET 1 EA INFUS.SET MC ONE (18:03)
[2016-08-04] MEDS: INSULIN DETEMIR 100 UNIT/ML CARTRIDGE SQ SCH (21:24)
[2016-08-04] MEDS: ATORVASTATIN 10 MG TABLET PO SCH (21:24)
[2016-08-04] MEDS: RENAL NOVASOURCE 1,000 ML BOTTLE GT PRN (21:27)
[2016-08-05] VITALS (8 sets, daily range): BP systolic 99–124; BP diastolic 32–73
[2016-08-05] MEDS: IPRATROPIUM NEB FS 0.5 MG/2.5 ML AMPUL.NEB IH SCH ×4 (01:18→19:24)
[2016-08-05] MEDS: ALBUTEROL FS 2.5 MG/0.5 ML VIAL.NEB IH SCH ×4 (01:19→19:24)
[2016-08-05] MEDS ORDERED: IV NS 0.9% 250 ML IV ONE (01:38)
[2016-08-05] MEDS ORDERED: SECONDARY IV SET 1 EA INFUS.SET MC ONE (05:15)
[2016-08-05] MEDS: COLISTIMETHATE SODIUM 100 MG in IV NS 0.9% 50 ML IV SCH ×2 (05:31→18:05)
[2016-08-05] MEDS: METRONIDAZOLE 500 MG TABLET PO SCH ×3 (05:31→22:06)
[2016-08-05] MEDS: BLOOD SUGAR DIAGNOSTIC 1 EACH STRIP IN SCH ×4 (05:31→23:57)
[2016-08-05 07:07] LABS: BASOPHILS % (AUTO) 0.2 % (0.0-2.0); DIFF TOTAL % 100 %; EOSINOPHILS # (AUTO) 0.7 /CMM (0.0-0.7); HEMATOCRIT 26 % (39-51); HEMOGLOBIN 8.5 g/dL (13.5-17.5); LYMPHOCYTES # (AUTO) 2.5 /CMM (0.8-4.8); LYMPHOCYTES % (AUTO) 15.1 % (20.0-44.0); MEAN CORPUSCULAR HEMOGLOBIN 29 PG (26.0-33.0); MEAN CORPUSCULAR HGB CONC 33 g/dl (31.0-36.0); MEAN CORPUSCULAR VOLUME 90 fL (80-96); MONOCYTES # (AUTO) 1.1 /CMM (0.1-1.30); MONOCYTES % (AUTO) 6.5 % (2.0-12.0); NEUTROPHILS # (AUTO) 12.1 /CMM (1.8-8.9); NEUTROPHILS % (AUTO) 74.2 % (43.0-81.0); PLATELET COUNT (AUTO) 477 /CMM (150-450); RED BLOOD CELL COUNT(AUTO) 2.91 MIL/uL (4.5-6.0); WHITE BLOOD COUNT (AUTO) 16.3 K/uL (4.3-11.0)
[2016-08-05 07:13] LABS: CALCIUM, SERUM 8.9 mg/dL (8.5-10.1); CREATININE 4.1 mg/dL (0.6-1.3); POTASSIUM 4.2 mmol/L (3.5-5.1)
[2016-08-05] MEDS: PANTOPRAZOLE 40 MG/PACK PACK GT SCH (07:44)
[2016-08-05] MEDS: LEVETIRACETAM SOL (5 ML) 100 MG/ML UDC PO SCH ×3 (08:01→16:02)
[2016-08-05] MEDS: ACIDOPHILUS/BULGARICUS 1 EACH TAB.CHEW GT SCH ×2 (08:01→22:05)
[2016-08-05] MEDS: predniSONE 10 MG TABLET GT SCH (08:01)
[2016-08-05] MEDS: VIT B CMPLX 3/FA/VIT C/BIOTIN 1 TAB TABLET GT SCH (08:01)
[2016-08-05] MEDS: ZINC SULFATE 220 MG CAPSULE GT SCH (08:01)
[2016-08-05] MEDS: PROSOURCE / PROSTAT (PYXIS) 30 ML UDC GT SCH ×3 (08:02→16:02)
[2016-08-05] MEDS: LISINOPRIL (10MG) 10 MG TABLET GT SCH (08:02)
[2016-08-05] MEDS: Z GUARD REMEDY 2 OZ OINT TP SCH ×2 (08:03→16:02)
[2016-08-05] MEDS: NEOMY SULF/BACITRAC ZN/POLY 15 GM TUBE TP SCH (08:03)
[2016-08-05] MEDS: VORICONAZOLE 200 MG TABLET PO SCH ×2 (08:03→22:06)
[2016-08-05] MEDS: OXCARBAZEPINE 150 MG TABLET GT SCH ×2 (08:23→22:06)
[2016-08-05 10:37] LABS: ERYTHROCYTE SEDIMENTATION RATE > 140 MM/HR (0-20)
[2016-08-05] MEDS: SULFAMETHOXAZOLE/TRIMETHOPRIM 15 ML in IV D5W 250 ML IV SCH (17:02)
[2016-08-05] MEDS: INSULIN REGULAR, HUMAN 100 UNIT/ML 3 ML VIAL SQ PRN ×2 (18:07→23:59)
[2016-08-05] MEDS: ATORVASTATIN 10 MG TABLET PO SCH (22:06)
[2016-08-05] MEDS: INSULIN DETEMIR 100 UNIT/ML CARTRIDGE SQ SCH (22:09)
[2016-08-06] VITALS (7 sets, daily range): BP systolic 90–123; BP diastolic 30–64
[2016-08-06] MEDS: ALBUTEROL FS 2.5 MG/0.5 ML VIAL.NEB IH SCH ×4 (01:49→19:38)
[2016-08-06] MEDS: IPRATROPIUM NEB FS 0.5 MG/2.5 ML AMPUL.NEB IH SCH ×4 (01:49→19:39)
[2016-08-06] MEDS ORDERED: IV NS 0.9% 250 ML IV ONE (04:44)
[2016-08-06] MEDS: BLOOD SUGAR DIAGNOSTIC 1 EACH STRIP IN SCH ×4 (05:05→23:14)
[2016-08-06] MEDS: COLISTIMETHATE SODIUM 100 MG in IV NS 0.9% 50 ML IV SCH ×2 (05:06→19:02)
[2016-08-06] MEDS: RENAL NOVASOURCE 1,000 ML BOTTLE GT PRN (05:06)
[2016-08-06] MEDS: METRONIDAZOLE 500 MG TABLET PO SCH ×3 (05:06→22:25)
[2016-08-06 07:11] LABS: BASOPHILS % (AUTO) 0.2 % (0.0-2.0); DIFF TOTAL % 100 %; EOSINOPHILS # (AUTO) 0.7 /CMM (0.0-0.7); EOSINOPHILS % (AUTO) 4.1 % (0.0-6.0); HEMATOCRIT 25 % (39-51); HEMOGLOBIN 8.4 g/dL (13.5-17.5); LYMPHOCYTES # (AUTO) 2.7 /CMM (0.8-4.8); LYMPHOCYTES % (AUTO) 16.3 % (20.0-44.0); MEAN CORPUSCULAR HEMOGLOBIN 30 PG (26.0-33.0); MEAN CORPUSCULAR HGB CONC 33 g/dl (31.0-36.0); MEAN CORPUSCULAR VOLUME 91 fL (80-96); MONOCYTES # (AUTO) 0.9 /CMM (0.1-1.30); MONOCYTES % (AUTO) 5.5 % (2.0-12.0); NEUTROPHILS # (AUTO) 12.4 /CMM (1.8-8.9); NEUTROPHILS % (AUTO) 73.9 % (43.0-81.0); PLATELET COUNT (AUTO) 467 /CMM (150-450); RED BLOOD CELL COUNT(AUTO) 2.81 MIL/uL (4.5-6.0); WHITE BLOOD COUNT (AUTO) 16.8 K/uL (4.3-11.0)
[2016-08-06 07:33] LABS: CALCIUM, SERUM 9.1 mg/dL (8.5-10.1); CREATININE 4.8 mg/dL (0.6-1.3); POTASSIUM 4.4 mmol/L (3.5-5.1)
[2016-08-06] MEDS: LEVETIRACETAM SOL (5 ML) 100 MG/ML UDC PO SCH ×3 (08:24→16:56)
[2016-08-06] MEDS: VIT B CMPLX 3/FA/VIT C/BIOTIN 1 TAB TABLET GT SCH (08:24)
[2016-08-06] MEDS: PANTOPRAZOLE 40 MG/PACK PACK GT SCH (08:24)
[2016-08-06] MEDS: ZINC SULFATE 220 MG CAPSULE GT SCH (08:25)
[2016-08-06] MEDS: ACIDOPHILUS/BULGARICUS 1 EACH TAB.CHEW GT SCH ×2 (08:26→22:25)
[2016-08-06] MEDS: VORICONAZOLE 200 MG TABLET PO SCH ×2 (08:26→22:25)
[2016-08-06] MEDS: OXCARBAZEPINE 150 MG TABLET GT SCH ×2 (08:26→22:25)
[2016-08-06] MEDS: PROSOURCE / PROSTAT (PYXIS) 30 ML UDC GT SCH ×3 (08:26→16:56)
[2016-08-06] MEDS: NEOMY SULF/BACITRAC ZN/POLY 15 GM TUBE TP SCH (08:27)
[2016-08-06] MEDS: Z GUARD REMEDY 2 OZ OINT TP SCH ×2 (08:27→16:56)
[2016-08-06] MEDS: predniSONE 10 MG TABLET GT SCH (08:29)
[2016-08-06] MEDS: LISINOPRIL (10MG) 10 MG TABLET GT SCH (09:00)
[2016-08-06] MEDS: INSULIN REGULAR, HUMAN 100 UNIT/ML 3 ML VIAL SQ PRN ×2 (17:32→23:18)
[2016-08-06] MEDS: SULFAMETHOXAZOLE/TRIMETHOPRIM 15 ML in IV D5W 250 ML IV SCH (18:02)
[2016-08-06] MEDS: INSULIN DETEMIR 100 UNIT/ML CARTRIDGE SQ SCH (22:32)
[2016-08-06] MEDS: ATORVASTATIN 10 MG TABLET PO SCH (22:56)
[2016-08-07] VITALS (7 sets, daily range): BP systolic 101–129; BP diastolic 55–87
[2016-08-07] MEDS: IPRATROPIUM NEB FS 0.5 MG/2.5 ML AMPUL.NEB IH SCH ×4 (01:17→19:05)
[2016-08-07] MEDS: ALBUTEROL FS 2.5 MG/0.5 ML VIAL.NEB IH SCH ×4 (01:18→19:05)
[2016-08-07] MEDS ORDERED: IV NS 0.9% 250 ML IV ONE (05:03)
[2016-08-07] MEDS: COLISTIMETHATE SODIUM 100 MG in IV NS 0.9% 50 ML IV SCH ×2 (05:04→17:52)
[2016-08-07] MEDS: RENAL NOVASOURCE 1,000 ML BOTTLE GT PRN (05:08)
[2016-08-07] MEDS: METRONIDAZOLE 500 MG TABLET PO SCH ×3 (05:09→22:27)
[2016-08-07] MEDS: BLOOD SUGAR DIAGNOSTIC 1 EACH STRIP IN SCH ×3 (05:10→18:34)
[2016-08-07 07:05] LABS: BASOPHILS # (AUTO) 0.1 /CMM (0.0-0.2); BASOPHILS % (AUTO) 0.7 % (0.0-2.0); DIFF TOTAL % 100 %; EOSINOPHILS # (AUTO) 0.8 /CMM (0.0-0.7); EOSINOPHILS % (AUTO) 4.5 % (0.0-6.0); HEMATOCRIT 22 % (39-51); HEMOGLOBIN 7.4 g/dL (13.5-17.5); LYMPHOCYTES # (AUTO) 3.9 /CMM (0.8-4.8); LYMPHOCYTES % (AUTO) 20.9 % (20.0-44.0); MEAN CORPUSCULAR HEMOGLOBIN 30 PG (26.0-33.0); MEAN CORPUSCULAR HGB CONC 33 g/dl (31.0-36.0); MEAN CORPUSCULAR VOLUME 91 fL (80-96); MONOCYTES # (AUTO) 1.6 /CMM (0.1-1.30); MONOCYTES % (AUTO) 8.4 % (2.0-12.0); NEUTROPHILS # (AUTO) 12.2 /CMM (1.8-8.9); NEUTROPHILS % (AUTO) 65.5 % (43.0-81.0); PLATELET COUNT (AUTO) 476 /CMM (150-450); RED BLOOD CELL COUNT(AUTO) 2.46 MIL/uL (4.5-6.0); WHITE BLOOD COUNT (AUTO) 18.6 K/uL (4.3-11.0)
[2016-08-07 07:16] LABS: CALCIUM, SERUM 8.9 mg/dL (8.5-10.1); CREATININE 3.7 mg/dL (0.6-1.3); POTASSIUM 4.3 mmol/L (3.5-5.1)
[2016-08-07] MEDS: VIT B CMPLX 3/FA/VIT C/BIOTIN 1 TAB TABLET GT SCH (08:01)
[2016-08-07] MEDS: ZINC SULFATE 220 MG CAPSULE GT SCH (08:01)
[2016-08-07] MEDS: LEVETIRACETAM SOL (5 ML) 100 MG/ML UDC PO SCH ×3 (08:01→17:52)
[2016-08-07] MEDS: OXCARBAZEPINE 150 MG TABLET GT SCH ×2 (08:01→22:26)
[2016-08-07] MEDS: PROSOURCE / PROSTAT (PYXIS) 30 ML UDC GT SCH ×3 (08:01→17:52)
[2016-08-07] MEDS: predniSONE 10 MG TABLET GT SCH (08:01)
[2016-08-07] MEDS: PANTOPRAZOLE 40 MG/PACK PACK GT SCH (08:01)
[2016-08-07] MEDS: VORICONAZOLE 200 MG TABLET PO SCH ×2 (08:01→22:26)
[2016-08-07] MEDS: ACIDOPHILUS/BULGARICUS 1 EACH TAB.CHEW GT SCH ×2 (08:01→22:26)
[2016-08-07] MEDS: Z GUARD REMEDY 2 OZ OINT TP SCH ×2 (08:02→17:53)
[2016-08-07] MEDS: NEOMY SULF/BACITRAC ZN/POLY 15 GM TUBE TP SCH (08:02)
[2016-08-07] MEDS: LISINOPRIL (10MG) 10 MG TABLET GT SCH (08:15)
[2016-08-07] MEDS: INSULIN REGULAR, HUMAN 100 UNIT/ML 3 ML VIAL SQ PRN ×2 (12:30→18:34)
[2016-08-07] MEDS: SULFAMETHOXAZOLE/TRIMETHOPRIM 15 ML in IV D5W 250 ML IV SCH (18:32)
[2016-08-07] MEDS ORDERED: PEG 3350/NA SULF,BICARB,CL/KCL 4,000 ML BOTTLE PO ONE (22:00)
[2016-08-07] MEDS: ATORVASTATIN 10 MG TABLET PO SCH (22:27)
[2016-08-07] MEDS: INSULIN DETEMIR 100 UNIT/ML CARTRIDGE SQ SCH (22:33)
[2016-08-08] VITALS (12 sets, daily range): BP systolic 76–142; BP diastolic 35–81
[2016-08-08] MEDS: BLOOD SUGAR DIAGNOSTIC 1 EACH STRIP IN SCH ×4 (00:36→18:12)
[2016-08-08] MEDS ORDERED: IV NS 0.9% 250 ML IV ONE ×2 (01:34→13:55)
[2016-08-08] MEDS ORDERED: BLOOD IV SET 1 EA INFUS.SET MC ONE ×2 (01:35→13:55)
[2016-08-08] MEDS: IPRATROPIUM NEB FS 0.5 MG/2.5 ML AMPUL.NEB IH SCH ×4 (02:24→19:38)
[2016-08-08] MEDS: ALBUTEROL FS 2.5 MG/0.5 ML VIAL.NEB IH SCH ×4 (02:24→19:38)
[2016-08-08] MEDS: METRONIDAZOLE 500 MG TABLET PO SCH ×3 (05:00→20:51)
[2016-08-08] MEDS: COLISTIMETHATE SODIUM 100 MG in IV NS 0.9% 50 ML IV SCH ×2 (05:16→19:21)
[2016-08-08] MEDS: PANTOPRAZOLE 40 MG/PACK PACK GT SCH (07:30)
[2016-08-08] MEDS: Z GUARD REMEDY 2 OZ OINT TP SCH ×2 (08:48→16:10)
[2016-08-08] MEDS: NEOMY SULF/BACITRAC ZN/POLY 15 GM TUBE TP SCH (08:49)
[2016-08-08] MEDS: OXCARBAZEPINE 150 MG TABLET GT SCH ×2 (09:00→22:12)
[2016-08-08] MEDS: VORICONAZOLE 200 MG TABLET PO SCH ×2 (09:00→20:49)
[2016-08-08] MEDS: ACIDOPHILUS/BULGARICUS 1 EACH TAB.CHEW GT SCH ×2 (09:00→22:11)
[2016-08-08] MEDS: LISINOPRIL (10MG) 10 MG TABLET GT SCH ×2 (09:00→12:52)
[2016-08-08] MEDS: predniSONE 10 MG TABLET GT SCH (09:00)
[2016-08-08] MEDS: PROSOURCE / PROSTAT (PYXIS) 30 ML UDC GT SCH ×3 (09:00→16:10)
[2016-08-08] MEDS: VIT B CMPLX 3/FA/VIT C/BIOTIN 1 TAB TABLET GT SCH (09:00)
[2016-08-08] MEDS: ZINC SULFATE 220 MG CAPSULE GT SCH (09:00)
[2016-08-08] MEDS: LEVETIRACETAM SOL (5 ML) 100 MG/ML UDC PO SCH ×3 (09:00→16:10)
[2016-08-08] MEDS: TRAMADOL HCL 50 MG TABLET GT PRN ×2 (12:50→23:10)
[2016-08-08] MEDS: RENAL NOVASOURCE 1,000 ML BOTTLE GT PRN (13:11)
[2016-08-08 15:17] LABS: BASOPHILS # (AUTO) 0.1 /CMM (0.0-0.2); BASOPHILS % (AUTO) 0.4 % (0.0-2.0); DIFF TOTAL % 100 %; EOSINOPHILS # (AUTO) 0.5 /CMM (0.0-0.7); EOSINOPHILS % (AUTO) 2.8 % (0.0-6.0); HEMATOCRIT 27 % (39-51); HEMOGLOBIN 8.8 g/dL (13.5-17.5); LYMPHOCYTES # (AUTO) 1.2 /CMM (0.8-4.8); LYMPHOCYTES % (AUTO) 7.7 % (20.0-44.0); MEAN CORPUSCULAR HEMOGLOBIN 29 PG (26.0-33.0); MEAN CORPUSCULAR HGB CONC 33 g/dl (31.0-36.0); MEAN CORPUSCULAR VOLUME 90 fL (80-96); MONOCYTES # (AUTO) 0.6 /CMM (0.1-1.30); NEUTROPHILS # (AUTO) 13.5 /CMM (1.8-8.9); NEUTROPHILS % (AUTO) 85.1 % (43.0-81.0); PLATELET COUNT (AUTO) 505 /CMM (150-450); RED BLOOD CELL COUNT(AUTO) 3.01 MIL/uL (4.5-6.0); WHITE BLOOD COUNT (AUTO) 15.9 K/uL (4.3-11.0)
[2016-08-08] MEDS: POLYETHYLENE GLYCOL 3350 17 GM POWD.PACK PO SCH (16:10)
[2016-08-08] MEDS: CEPHALEXIN MONOHYDRATE 500 MG CAPSULE PO SCH (18:08)
[2016-08-08] MEDS: SULFAMETHOXAZOLE/TRIMETHOPRIM 15 ML in IV D5W 250 ML IV SCH (18:12)
[2016-08-08] MEDS: MUPIROCIN OINT 2% 22 GM TUBE TP SCH (19:21)
[2016-08-08] MEDS: ATORVASTATIN 10 MG TABLET PO SCH (20:49)
[2016-08-08] MEDS: INSULIN DETEMIR 100 UNIT/ML CARTRIDGE SQ SCH (23:02)
[2016-08-09] VITALS: BP 100/38
[2016-08-09] MEDS: IPRATROPIUM NEB FS 0.5 MG/2.5 ML AMPUL.NEB IH SCH ×5 (01:30→20:54)
[2016-08-09] MEDS: ALBUTEROL FS 2.5 MG/0.5 ML VIAL.NEB IH SCH ×5 (02:37→20:54)
[2016-08-09 04:00] VITALS: BP 93/36
[2016-08-09] MEDS: BLOOD SUGAR DIAGNOSTIC 1 EACH STRIP IN SCH ×5 (05:32→23:26)
[2016-08-09] MEDS: METRONIDAZOLE 500 MG TABLET PO SCH ×3 (05:35→21:10)
[2016-08-09] MEDS: COLISTIMETHATE SODIUM 100 MG in IV NS 0.9% 50 ML IV SCH ×2 (05:35→17:37)
[2016-08-09] MEDS: MUPIROCIN OINT 2% 22 GM TUBE TP SCH ×2 (05:36→17:00)
[2016-08-09] MEDS ORDERED: IV NS 0.9% 250 ML IV ONE (05:43)
[2016-08-09 07:17] LABS: BASOPHILS # (AUTO) 0.1 /CMM (0.0-0.2); BASOPHILS % (AUTO) 0.7 % (0.0-2.0); DIFF TOTAL % 100 %; EOSINOPHILS # (AUTO) 0.7 /CMM (0.0-0.7); EOSINOPHILS % (AUTO) 3.9 % (0.0-6.0); HEMATOCRIT 29 % (39-51); HEMOGLOBIN 9.4 g/dL (13.5-17.5); LYMPHOCYTES # (AUTO) 2.4 /CMM (0.8-4.8); LYMPHOCYTES % (AUTO) 13.2 % (20.0-44.0); MEAN CORPUSCULAR HEMOGLOBIN 30 PG (26.0-33.0); MEAN CORPUSCULAR HGB CONC 33 g/dl (31.0-36.0); MEAN CORPUSCULAR VOLUME 90 fL (80-96); MONOCYTES # (AUTO) 1.5 /CMM (0.1-1.30); MONOCYTES % (AUTO) 8.2 % (2.0-12.0); NEUTROPHILS # (AUTO) 13.5 /CMM (1.8-8.9); PLATELET COUNT (AUTO) 529 /CMM (150-450); RED BLOOD CELL COUNT(AUTO) 3.18 MIL/uL (4.5-6.0); WHITE BLOOD COUNT (AUTO) 18.3 K/uL (4.3-11.0)
[2016-08-09 07:52] LABS: CALCIUM, SERUM 8.7 mg/dL (8.5-10.1); POTASSIUM 3.8 mmol/L (3.5-5.1)
[2016-08-09 08:00] VITALS: BP 89/39
[2016-08-09] MEDS: LISINOPRIL (10MG) 10 MG TABLET GT SCH (09:00)
[2016-08-09] MEDS: VIT B CMPLX 3/FA/VIT C/BIOTIN 1 TAB TABLET GT SCH (09:11)
[2016-08-09] MEDS: POLYETHYLENE GLYCOL 3350 17 GM POWD.PACK PO SCH ×2 (09:11→16:59)
[2016-08-09] MEDS: PROSOURCE / PROSTAT (PYXIS) 30 ML UDC GT SCH ×3 (09:11→16:59)
[2016-08-09] MEDS: ACIDOPHILUS/BULGARICUS 1 EACH TAB.CHEW GT SCH ×2 (09:11→21:10)
[2016-08-09] MEDS: LEVETIRACETAM SOL (5 ML) 100 MG/ML UDC PO SCH ×3 (09:11→16:59)
[2016-08-09] MEDS: VORICONAZOLE 200 MG TABLET PO SCH ×2 (09:11→21:10)
[2016-08-09] MEDS: PANTOPRAZOLE 40 MG/PACK PACK GT SCH (09:12)
[2016-08-09] MEDS: ZINC SULFATE 220 MG CAPSULE GT SCH (09:12)
[2016-08-09] MEDS: OXCARBAZEPINE 150 MG TABLET GT SCH ×2 (09:12→21:10)
[2016-08-09] MEDS: predniSONE 10 MG TABLET GT SCH (09:12)
[2016-08-09] MEDS: CEPHALEXIN MONOHYDRATE 500 MG CAPSULE PO SCH ×3 (09:13→16:59)
[2016-08-09] MEDS: NEOMY SULF/BACITRAC ZN/POLY 15 GM TUBE TP SCH (09:14)
[2016-08-09] MEDS: Z GUARD REMEDY 2 OZ OINT TP SCH ×2 (09:14→16:59)
[2016-08-09 12:00] VITALS: BP_SYST 94; BP_SYST 97; BP_DIAS 46
[2016-08-09 16:00] VITALS: BP 110/64
[2016-08-09] MEDS: INSULIN REGULAR, HUMAN 100 UNIT/ML 3 ML VIAL SQ PRN ×2 (17:04→23:29)
[2016-08-09] MEDS: SULFAMETHOXAZOLE/TRIMETHOPRIM 15 ML in IV D5W 250 ML IV SCH (19:27)
[2016-08-09 20:00] VITALS: BP 110/53
[2016-08-09] MEDS: ATORVASTATIN 10 MG TABLET PO SCH (21:10)
[2016-08-09] MEDS: INSULIN DETEMIR 100 UNIT/ML CARTRIDGE SQ SCH (21:11)
[2016-08-09] MEDS: LEVOFLOXACIN 500 MG /D5W 100ML 500 MG in PREMIX 1 EA IV SCH (22:00)
[2016-08-09] MEDS ORDERED: LEVOFLOXACIN 500 MG /D5W 100ML 100 ML IV ONE (22:59)
[2016-08-10] VITALS (8 sets, daily range): BP systolic 11–136; BP diastolic 40–99
[2016-08-10] MEDS: IPRATROPIUM NEB FS 0.5 MG/2.5 ML AMPUL.NEB IH SCH ×4 (01:08→20:36)
[2016-08-10] MEDS: ALBUTEROL FS 2.5 MG/0.5 ML VIAL.NEB IH SCH ×4 (01:08→20:36)
[2016-08-10] MEDS: RENAL NOVASOURCE 1,000 ML BOTTLE GT PRN (05:46)
[2016-08-10] MEDS: METRONIDAZOLE 500 MG TABLET PO SCH ×3 (05:46→21:28)
[2016-08-10] MEDS: MUPIROCIN OINT 2% 22 GM TUBE TP SCH ×2 (05:48→17:29)
[2016-08-10] MEDS: BLOOD SUGAR DIAGNOSTIC 1 EACH STRIP IN SCH ×3 (05:48→17:29)
[2016-08-10 07:13] LABS: BASOPHILS % (AUTO) 0.1 % (0.0-2.0); DIFF TOTAL % 100 %; EOSINOPHILS # (AUTO) 0.5 /CMM (0.0-0.7); EOSINOPHILS % (AUTO) 3.1 % (0.0-6.0); HEMATOCRIT 28 % (39-51); HEMOGLOBIN 9.2 g/dL (13.5-17.5); LYMPHOCYTES # (AUTO) 1.8 /CMM (0.8-4.8); LYMPHOCYTES % (AUTO) 11.9 % (20.0-44.0); MEAN CORPUSCULAR HEMOGLOBIN 30 PG (26.0-33.0); MEAN CORPUSCULAR HGB CONC 33 g/dl (31.0-36.0); MEAN CORPUSCULAR VOLUME 91 fL (80-96); MONOCYTES # (AUTO) 1.1 /CMM (0.1-1.30); MONOCYTES % (AUTO) 7.2 % (2.0-12.0); NEUTROPHILS # (AUTO) 11.7 /CMM (1.8-8.9); NEUTROPHILS % (AUTO) 77.7 % (43.0-81.0); PLATELET COUNT (AUTO) 520 /CMM (150-450); RED BLOOD CELL COUNT(AUTO) 3.07 MIL/uL (4.5-6.0); WHITE BLOOD COUNT (AUTO) 15.1 K/uL (4.3-11.0)
[2016-08-10 07:28] LABS: CALCIUM, SERUM 8.7 mg/dL (8.5-10.1); CREATININE 3.7 mg/dL (0.6-1.3); POTASSIUM 3.8 mmol/L (3.5-5.1)
[2016-08-10] MEDS: PANTOPRAZOLE 40 MG/PACK PACK GT SCH (09:18)
[2016-08-10] MEDS: VIT B CMPLX 3/FA/VIT C/BIOTIN 1 TAB TABLET GT SCH (09:19)
[2016-08-10] MEDS: predniSONE 10 MG TABLET GT SCH (09:19)
[2016-08-10] MEDS: ACIDOPHILUS/BULGARICUS 1 EACH TAB.CHEW GT SCH ×2 (09:19→21:27)
[2016-08-10] MEDS: OXCARBAZEPINE 150 MG TABLET GT SCH ×2 (09:20→21:27)
[2016-08-10] MEDS: LISINOPRIL (10MG) 10 MG TABLET GT SCH (09:20)
[2016-08-10] MEDS: POLYETHYLENE GLYCOL 3350 17 GM POWD.PACK PO SCH ×2 (09:20→17:00)
[2016-08-10] MEDS: ZINC SULFATE 220 MG CAPSULE GT SCH (09:20)
[2016-08-10] MEDS: LEVETIRACETAM SOL (5 ML) 100 MG/ML UDC PO SCH ×3 (09:20→17:28)
[2016-08-10] MEDS: PROSOURCE / PROSTAT (PYXIS) 30 ML UDC GT SCH ×3 (09:20→17:28)
[2016-08-10] MEDS: VORICONAZOLE 200 MG TABLET PO SCH ×2 (09:20→21:27)
[2016-08-10] MEDS: NEOMY SULF/BACITRAC ZN/POLY 15 GM TUBE TP SCH (09:21)
[2016-08-10] MEDS: Z GUARD REMEDY 2 OZ OINT TP SCH ×2 (09:21→17:29)
[2016-08-10] MEDS: COLISTIMETHATE SODIUM 150 MG VIAL NEB SCH ×2 (10:39→21:25)
[2016-08-10] MEDS: INSULIN REGULAR, HUMAN 100 UNIT/ML 3 ML VIAL SQ PRN ×2 (12:27→17:41)
[2016-08-10] MEDS ORDERED: VANCOMYCIN 1 GM in IV D5W 250 ML IV ONE ×2 (14:00→16:00)
[2016-08-10] MEDS ORDERED: FEE PK DOSING 1 MIN EA MC ONE (15:43)
[2016-08-10] MEDS ORDERED: SECONDARY IV SET 1 EA INFUS.SET MC ONE (17:29)
[2016-08-10] MEDS: LEVOFLOXACIN 500 MG /D5W 100ML 500 MG in PREMIX 1 EA IV SCH (21:27)
[2016-08-10] MEDS: INSULIN DETEMIR 100 UNIT/ML CARTRIDGE SQ SCH (21:28)
[2016-08-10] MEDS: ATORVASTATIN 10 MG TABLET PO SCH (21:28)
[2016-08-10] MEDS ORDERED: IV SET PRIMARY PUMP SET 1 EA INFUS.SET MC ONE (21:33)
[2016-08-11] VITALS: BP_SYST 107; BP_SYST 130; BP_DIAS 55; BP_DIAS 86
[2016-08-11] MEDS: BLOOD SUGAR DIAGNOSTIC 1 EACH STRIP IN SCH ×4 (00:31→18:12)
[2016-08-11] MEDS: INSULIN REGULAR, HUMAN 100 UNIT/ML 3 ML VIAL SQ PRN ×3 (00:33→18:16)
[2016-08-11] MEDS: ALBUTEROL FS 2.5 MG/0.5 ML VIAL.NEB IH SCH ×3 (01:21→13:12)
[2016-08-11] MEDS: IPRATROPIUM NEB FS 0.5 MG/2.5 ML AMPUL.NEB IH SCH ×3 (01:21→13:12)
[2016-08-11 04:00] VITALS: BP 95/50
[2016-08-11] MEDS ORDERED: VANCOMYCIN 500 MG in IV D5W 100 ML IV PRN (06:00)
[2016-08-11] MEDS: RENAL NOVASOURCE 1,000 ML BOTTLE GT PRN (06:46)
[2016-08-11] MEDS: METRONIDAZOLE 500 MG TABLET PO SCH ×2 (06:47→12:49)
[2016-08-11] MEDS: MUPIROCIN OINT 2% 22 GM TUBE TP SCH ×2 (06:47→18:15)
[2016-08-11] MEDS: COLISTIMETHATE SODIUM 150 MG VIAL NEB SCH (07:38)
[2016-08-11 08:00] VITALS: BP_SYST 95; BP_SYST 97; BP_DIAS 52
[2016-08-11] MEDS: POLYETHYLENE GLYCOL 3350 17 GM POWD.PACK PO SCH ×2 (08:15→17:00)
[2016-08-11] MEDS: LISINOPRIL (10MG) 10 MG TABLET GT SCH (09:00)
[2016-08-11] MEDS: PANTOPRAZOLE 40 MG/PACK PACK GT SCH (09:01)
[2016-08-11] MEDS: ACIDOPHILUS/BULGARICUS 1 EACH TAB.CHEW GT SCH (09:02)
[2016-08-11] MEDS: ZINC SULFATE 220 MG CAPSULE GT SCH (09:02)
[2016-08-11] MEDS: VIT B CMPLX 3/FA/VIT C/BIOTIN 1 TAB TABLET GT SCH (09:02)
[2016-08-11] MEDS: LEVETIRACETAM SOL (5 ML) 100 MG/ML UDC PO SCH ×3 (09:02→18:11)
[2016-08-11] MEDS: VORICONAZOLE 200 MG TABLET PO SCH (09:02)
[2016-08-11] MEDS: predniSONE 10 MG TABLET GT SCH (09:02)
[2016-08-11] MEDS: PROSOURCE / PROSTAT (PYXIS) 30 ML UDC GT SCH ×3 (09:02→18:11)
[2016-08-11] MEDS: OXCARBAZEPINE 150 MG TABLET GT SCH (09:03)
[2016-08-11] MEDS: Z GUARD REMEDY 2 OZ OINT TP SCH ×2 (09:03→18:12)
[2016-08-11] MEDS: NEOMY SULF/BACITRAC ZN/POLY 15 GM TUBE TP SCH (09:04)
[2016-08-11] MEDS: ERGOCALCIFEROL (VITAMIN D 2) 50,000 UNIT CAPSULE GT SCH (09:05)
[2016-08-11 12:00] VITALS: BP 103/50
[2016-08-11 16:00] VITALS: BP 90/45
== END 2016-08-11 18:56 | DRG 720 ==
LOC: ER 14:45 → TELE1 17:57
PROVIDERS: ADMIT Internal Medicine Rheumatology; ATTEND Internal Medicine Rheumatology
PROC: 5A1955Z Respiratory Ventilation, Greater than 96 Consecutive Hours (ICD-10-PCS; principal; 2016-07-29)
PROC: 05H533Z Insertion of Infusion Device into Right Subclavian Vein, Percutaneous Approach (ICD-10-PCS; 2016-07-30)
PROC: 5A1D60Z (ICD-10-PCS; 2016-08-01)
PROC: 0DJ08ZZ Inspection of Upper Intestinal Tract, Via Natural or Artificial Opening Endoscopic (ICD-10-PCS; 2016-08-08)
PROC: 0W3P8ZZ Control Bleeding in Gastrointestinal Tract, Via Natural or Artificial Opening Endoscopic (ICD-10-PCS; 2016-08-08)
PROC: 06HM33Z Insertion of Infusion Device into Right Femoral Vein, Percutaneous Approach (ICD-10-PCS; 2016-08-08)
PROC: 30233N1 Transfusion of Nonautologous Red Blood Cells into Peripheral Vein, Percutaneous Approach (ICD-10-PCS; 2016-08-08)
DX: A41.9 Sepsis, unspecified organism (principal); G93.40 Encephalopathy, unspecified; Z99.11 Dependence on respirator [ventilator] status; L89.159 Pressure ulcer of sacral region, unspecified stage; I11.0 Hypertensive heart disease with heart failure; J44.0 Chronic obstructive pulmonary disease with (acute) lower respiratory infection; J96.11 Chronic respiratory failure with hypoxia; Z93.0 Tracheostomy status; I50.9 Heart failure, unspecified; N18.6 End stage renal disease; K62.6 Ulcer of anus and rectum; Z93.1 Gastrostomy status; Z99.2 Dependence on renal dialysis; G40.909 Epilepsy, unspecified, not intractable, without status epilepticus; E78.5 Hyperlipidemia, unspecified; E77.8 Other disorders of glycoprotein metabolism; E55.9 Vitamin D deficiency, unspecified; I69.351 Hemiplegia and hemiparesis following cerebral infarction affecting right dominant side; I69.320 Aphasia following cerebral infarction; D64.9 Anemia, unspecified; K59.09 Other constipation; I44.0 Atrioventricular block, first degree; I25.10 Atherosclerotic heart disease of native coronary artery without angina pectoris; F03.90 Unspecified dementia, unspecified severity, without behavioral disturbance, psychotic disturbance, mood disturbance, and anxiety; E11.22 Type 2 diabetes mellitus with diabetic chronic kidney disease; B96.89 Other specified bacterial agents as the cause of diseases classified elsewhere; B95.62 Methicillin resistant Staphylococcus aureus infection as the cause of diseases classified elsewhere; J98.11 Atelectasis; K21.9 Gastro-esophageal reflux disease without esophagitis; R13.10 Dysphagia, unspecified; Y84.8 Other medical procedures as the cause of abnormal reaction of the patient, or of later complication, without mention of misadventure at the time of the procedure; Z86.14 Personal history of Methicillin resistant Staphylococcus aureus infection; L89.610 Pressure ulcer of right heel, unstageable; K62.5 Hemorrhage of anus and rectum
CPT/HCPCS: 31720; 36415; 71010-TC; 80048-TC; 80076-TC; 80150; 80202-TC; 82272-TC; 82962-TC; 83605-TC; 83735-TC; 84100-TC; 84443-TC; 84484-TC; 85025-TC; 85652-TC; 85730-TC; 86850-TC; 86901; 86921-TC; 87040-TC; 87070-TC; 87081-TC; 87186-TC; 89055; 90935-TC; 94002-TC; 94003-TC; A4216; A4217; A4606; A6253; A6402; A6403; A7526; J0278; J0770; J0885; J1450; J1580; J1815; J1953; J1956; J2543; J3370; J3490; J7050; J7060; P9016-BL; P9047; Z7610

== ENCOUNTER 2016-08-27 15:24 | Inpatient (IN) | payer MEDICAID ==
[2016-08-27] VITALS (30 sets, daily range): BP systolic 65–135; BP diastolic 28–69
[~2016-08-27] VITALS: Ht 167.6 cm; Wt 98.9 kg
[~2016-08-27 15:24] MED LIST changes: +ALBU2.5V13 IH; -BLOO-129 IN; +ERGO50003 GT; -INSU100V26 SQ; +IPRA0.2S9 IH; +METO5SOL2 GT; -NUT.237L67 GT; +PRED10TA GT; -PRED5TAB GT; +ZINC220C8 GT
--- NOTE | 2016-08-27 15:34 | NUR ---
[facility] EMS FROM [facility] FOR LOW BP POST DIALYSIS. PT IS A CHRONIC TRACH VENT DEPENDENT. NON VERBAL, BOTH EYES OPEN. RT AT BEDSIDE FOR VENT SET UP. GOWNED AND PLACED ON CONT MONITORING. ALL NEEDS ARE ATTENDED, KEPT WARM AND COMFORTABLE. PENDING ER MD EVALUATION
--- NOTE | 2016-08-27 15:45 | NUR ---
RT RECEIVED PT TRACHED WITH PORTEX #8 CUFFED ON [facility] VENT WITH SETTINGS FROM PREVIOUS FACILITY. MOHS SURGEON/GENERAL DERMATOLOGIST DONE. VENT PLUGGED INTO RED OUTLET. ALARMS SET AND FUNCTIONING PROPERLY. TRACH SECURED AND PATENT. SUCTIONED SMALL AMOUNTS OF THICK, YELLOW SECRETIONS. BILATERAL RHONCHI BREATH SOUNDS ON AUSCULTATION. RESPIRATIONS EVEN AND UNLABORED. AMBU BAG AT HEAD OF BED. NO SOB OR SIGNS OF DISTRESS NOTED AT THIS TIME. WILL CONTINUE TO MONITOR THE PATIENT FOR ANY CHANGE OF CONDITION. Addendum: 08/27/16 at 1610 by FLORES JULES RT Amended: Links added.
[2016-08-27] MEDS ORDERED: ALBUMIN 5% 25 GM in PREMIX 1 EA IV ONE (16:00)
--- NOTE | 2016-08-27 16:01 | NUR ---
CALLED PHARMACY FOR ALBUMIN IVPB, SPOKE TO DARA PHARMACIST, SAID HE WILL CHECK IF PT MEETS CRITERIA.
[2016-08-27 16:12] LABS: BASOPHILS # (AUTO) 0.1 /CMM (0.0-0.2); BASOPHILS % (AUTO) 0.4 % (0.0-2.0); EOSINOPHILS # (AUTO) 1.2 /CMM (0.0-0.7); EOSINOPHILS % (AUTO) 4.6 % (0.0-6.0); HEMATOCRIT 24 % (39-51); HEMOGLOBIN 7.7 g/dL (13.5-17.5); LYMPHOCYTES # (AUTO) 2.8 /CMM (0.8-4.8); LYMPHOCYTES % (AUTO) 10.5 % (20.0-44.0); MEAN CORPUSCULAR HEMOGLOBIN 30 PG (26.0-33.0); MEAN CORPUSCULAR HGB CONC 32 g/dl (31.0-36.0); MEAN CORPUSCULAR VOLUME 96 fL (80-96); MONOCYTES # (AUTO) 1.9 /CMM (0.1-1.30); MONOCYTES % (AUTO) 7.3 % (2.0-12.0); NEUTROPHILS # (AUTO) 20.4 /CMM (1.8-8.9); NEUTROPHILS % (AUTO) 77.2 % (43.0-81.0); PLATELET COUNT (AUTO) 463 /CMM (150-450); RDW COEFFICIENT OF VARIATION 20.5 (11.5-15.0); RED BLOOD CELL COUNT(AUTO) 2.54 MIL/uL (4.5-6.0); WHITE BLOOD COUNT (AUTO) 26.4 K/uL (4.3-11.0)
[2016-08-27] MEDS ORDERED: IV SET PRIMARY PUMP SET 1 EA INFUS.SET MC ONE ×2 (16:12→17:39)
[2016-08-27 16:18] LABS: CALCIUM, SERUM 9.9 mg/dL (8.5-10.1); CARBON DIOXIDE 21 mmol/L (21-32); CHLORIDE 101 mmol/L (98-107); CREATININE 2.7 mg/dL (0.6-1.3); GFR 24 mL/min (>60); GLUCOSE 254 mg/dL (74-106); POTASSIUM 4.2 mmol/L (3.5-5.1); SODIUM SERUM 135 mmol/L (136-145); UREA NITROGEN, BLOOD 61 mg/dL (7-18)
[2016-08-27 16:24] LABS: ALANINE AMINOTRANSFERASE 15 U/L (12-78); ALBUMIN 2.1 g/dL (3.4-5.0); ALKALINE PHOSPHATASE 214 U/L (46-116); ASPARTATE AMINOTRANSFERASE 44 U/L (15-37); BILIRUBIN,DIRECT 0.1 mg/dL (0.0-0.2); BILIRUBIN,TOTAL 0.5 mg/dL (0.2-1.0); TOTAL PROTEIN, SERUM 8.1 g/dL (6.4-8.2)
[2016-08-27 16:25] LABS: INR 1.18 (0.87-1.13); PROTHROMBIN TIME 12.4 SECS (9.5-12.7)
[2016-08-27 16:26] LABS: TROPONIN I < 0.017 ng/mL (0.00-0.056)
[2016-08-27 16:44] LABS: LACTIC ACID 1.3 mmol/L (0.4-2.0)
[2016-08-27 17:19] LABS: ANISOCYTOSIS 2+; BAND % (MANUAL) 2 % (0.0-5.0); EOSINOPHILS % (MANUAL) 6 % (0-4); LYMPHOCYTES % (MANUAL) 10 % (16-48); MONOCYTES % (MANUAL) 8 % (0-11.0); NEUTROPHILS % (MANUAL) 74 (42-76); PLATELET ESTIMATE ADEQUATE
[2016-08-27] MEDS ORDERED: MEROPENEM 500 MG in IV NS 0.9% 50 ML IV ONE (17:30)
[2016-08-27] MEDS ORDERED: VANCOMYCIN 1 GM in IV D5W 250 ML IV ONE (17:30)
[2016-08-27] MEDS ORDERED: PHENYLEPHRINE 20 MG in IV D5W 250 ML IV PRN (17:30)
[2016-08-27] MEDS ORDERED: PIPERACILLIN /TAZOBACTAM 3.375 G in IV D5W 50 ML IV ONE (18:00)
--- NOTE | 2016-08-27 18:05 | NUR ---
PHARMACY CALLED FOR YOLY VALENTINEPB
--- NOTE | 2016-08-27 18:37 | NUR ---
REPORT GIVEN TO LAWRENCE WILD FOR CONT OF CARE
--- NOTE | 2016-08-27 20:00 | NUR ---
PASTER SUPERVISOR - ADMISSION NOTES - PT RECEIVED FROM ER ADMITTED FOR HYPOTENSION FROM [facility]. PT WAS FOUND TO HAVE ELEVATED WBC, PT IS AWAKE, FOLLOWS SOME SIMPLE COMMANDS. PT HAD LOW HEMOGLOBIN 7.7 WILL BE GIVEN 1 U PRBC AND IS BLEEDING FROM RECTUM, PT IS IN SR W PVCS, +4 EDEMA GENERALIZED. PT HAS PORTEX 8 ON VENT SETTINGS AC 22 40% 600 5.0, TOLERATING VENT WELL. PT HAS PEG TUBE, NPO RIGHT NOW. PT IS ANURIC. RIGHT FEM HD CATH, DENISE PICC LINE AND R HAND 18G IV. WILL CONTINUE TO MONITOR
[2016-08-27] MEDS ORDERED: BLOOD IV SET 1 EA INFUS.SET MC ONE (22:15)
[2016-08-27] MEDS ORDERED: IV NS 0.9% 250 ML IV ONE (22:15)
[2016-08-27] MEDS: PHENYLEPHRINE 40 MG in IV D5W 250 ML IV PRN (22:20)
[2016-08-27] MEDS: PIPERACILLIN /TAZOBACTAM 2.25 G in IV D5W 50 ML IV SCH (23:07)
[2016-08-28] VITALS (102 sets, daily range): BP systolic 84–150; BP diastolic 31–76
[2016-08-28] MEDS ORDERED: PIPERACILLIN /TAZOBACTAM 3.375 G in IV D5W 50 ML IV SCH ×2
[2016-08-28] MEDS ORDERED: IV NS 0.9% 250 ML IV ONE (03:37)
[2016-08-28 04:58] LABS: BASOPHILS # (AUTO) 0.1 /CMM (0.0-0.2); BASOPHILS % (AUTO) 0.5 % (0.0-2.0); EOSINOPHILS # (AUTO) 0.7 /CMM (0.0-0.7); EOSINOPHILS % (AUTO) 3.7 % (0.0-6.0); HEMATOCRIT 25 % (39-51); HEMOGLOBIN 8.1 g/dL (13.5-17.5); LYMPHOCYTES # (AUTO) 2.5 /CMM (0.8-4.8); MEAN CORPUSCULAR HEMOGLOBIN 30 PG (26.0-33.0); MEAN CORPUSCULAR HGB CONC 32 g/dl (31.0-36.0); MEAN CORPUSCULAR VOLUME 92 fL (80-96); MONOCYTES % (AUTO) 10.6 % (2.0-12.0); NEUTROPHILS % (AUTO) 72.2 % (43.0-81.0); PLATELET COUNT (AUTO) 357 /CMM (150-450); RED BLOOD CELL COUNT(AUTO) 2.73 MIL/uL (4.5-6.0); WHITE BLOOD COUNT (AUTO) 19.4 K/uL (4.3-11.0)
[2016-08-28 05:26] LABS: ALBUMIN 2.2 g/dL (3.4-5.0); BILIRUBIN,DIRECT 0.2 mg/dL (0.0-0.2); BILIRUBIN,TOTAL 0.5 mg/dL (0.2-1.0); CALCIUM, SERUM 9.4 mg/dL (8.5-10.1); CREATININE 3.2 mg/dL (0.6-1.3); MAGNESIUM 1.9 mg/dL (1.8-2.4); PHOSPHORUS 4.1 mg/dL (2.5-4.9); POTASSIUM 3.5 mmol/L (3.5-5.1); TOTAL PROTEIN, SERUM 6.9 g/dL (6.4-8.2)
[2016-08-28] MEDS ORDERED: SECONDARY IV SET 1 EA INFUS.SET MC ONE (06:02)
[2016-08-28] MEDS: PIPERACILLIN /TAZOBACTAM 2.25 G in IV D5W 50 ML IV SCH ×3 (06:05→17:35)
--- NOTE | 2016-08-28 08:00 | NUR ---
PT RECVD FROM PM SHIFT TOLERATING VENT SETTINGS 40% FIO2. PT WAS OFF LEANDRO FOR 2HRS DURING PM SHIFT BUT SBP DROPPED INTO LOW 80'S CONSISTENTLY. RESTARTED LEANDRO AT 30MCG ACTIVELY TITRATING DOWN. HE RECVD 1 UNIT PRBC LAST NIGHT WITH THIS MORNINGS HGB AT 8.1. ANOTHER UNIT IS ORDERED WITH HEMODIALYSIS TODAY. ACTIVE GIB BLOODY STOOLS NOTED. WOUND CONSULT NURSE IN FOR EVAL.
[2016-08-28] MEDS ORDERED: VANCOMYCIN 500 MG in IV D5W 100 ML IV PRN (08:30)
[2016-08-28] MEDS ORDERED: FEE PK DOSING 1 MIN EA MC ONE ×2 (09:16→10:38)
--- NOTE | 2016-08-28 10:29 | NUR ---
CALLED DR. MORSE OFFICE TWICE [phone] TRYING TO NOTIFY FOR HOME MEDICATIONS RECONCILIATION. UNABLE TO GET THROUGH TO SPEAK TO ANYONE OR LEAVE A MESSAGE. A RADIO STATION PLAYS AND THEN EVENTUALLY HANGS UP.
--- NOTE | 2016-08-28 10:50 | NUR ---
NOTIFIED DR. MORSE VIA CHARGE NURSE PHONE THAT RENAL MD PLACED ORDERS FOR HD TOMORROW. PATIENT RECIEVED 1 UNIT ON ADMISSION AND ANOTHER UNIT OF PRBC WAS ORDERED WITH HD FOR TODAY. CURRENT H/H IS 8.1 (UP FROM 7.7). REPORTED THIS TO DR. MORSE AND HE STATES TO GIVE THE 2ND UNIT WITH HD TOMORROW. I CALLED BLOOD BANK TO NOTIFY THEM THAT BLOOD IS ORDERED FOR TOMORROW INSTEAD OF TODAY AND TO MAKE SURE THE UNITS OF BLOOD WONT . DR. PATEL NOTIFIED OF HOME MEDICATIONS THAT NEED TO BE RECONCILED.
--- NOTE | 2016-08-28 11:11 | NUR ---
DR. CONTRERAS ON THE UNIT, ORDERS TO CHECK H/H AT 1700 AND IF HGB IS LESS THAN 8 TRANSFUSE 1 UNIT PRBC. Addendum: 08/28/16 at 1851 by JOY READ RN HGB IS 8.4
[2016-08-28] MEDS: PHENYLEPHRINE 40 MG in IV D5W 250 ML IV PRN (12:26)
[2016-08-28] MEDS ORDERED: Z GUARD REMEDY 2 OZ OINT TP PRN (13:00)
[2016-08-28] MEDS ORDERED: HYDROGEL DRESSING 90 GM TUBE TP PRN (13:00)
[2016-08-28] MEDS: HYDROGEL DRESSING 90 GM TUBE TP SCH (15:01)
[2016-08-28] MEDS: Z GUARD REMEDY 2 OZ OINT TP SCH (15:01)
[2016-08-28 17:44] LABS: HEMOGLOBIN 8.4 g/dL (13.5-17.5)
--- NOTE | 2016-08-28 20:05 | NUR ---
PT IS ON LEANDRO AT 100 MCG Addendum: 08/28/16 at 2144 by TARYN MCALLISTER RN CORRECTIONS SPECIALIST - NOTES - PT IS AWAKE, FOLLOWS SOME SIMPLE COMMANDS. PT IS BLEEDING FROM RECTUM, PT IS IN SR W PVCS, +4 EDEMA GENERALIZED. PT HAS PORTEX 8 ON VENT SETTINGS AC 22 40% 600 5.0, TOLERATING VENT WELL. PT HAS PEG TUBE, NPO RIGHT NOW. PT IS ANURIC. RIGHT FEM HD CATH, DENISE PICC LINE AND R HAND 18G IV. WILL CONTINUE TO MONITOR TOLERATING VENT SETTINGS 40% FIO2. ACTIVE GIB BLOODY STOOLS NOTED. WOUNDS PRESENT, WOUND TX PER ORDER. PT IS ON LEANDRO AT 10 MCG
[2016-08-29] VITALS (68 sets, daily range): BP systolic 89–142; BP diastolic 35–83
[2016-08-29] MEDS: PIPERACILLIN /TAZOBACTAM 2.25 G in IV D5W 50 ML IV SCH ×5 (00:37→23:02)
[2016-08-29] MEDS ORDERED: ALBUMIN 25% 100 ML IV ONE ×2 (00:40→01:29)
[2016-08-29] MEDS ORDERED: IV SET PRIMARY PUMP SET 1 EA INFUS.SET MC ONE (00:40)
--- NOTE | 2016-08-29 00:51 | NUR ---
DR MORSE AT BEDSIDE TO ASSESS PT, NEW ORDERS FOR ALBUMIN 25% 50 GM Q6H X 4, IF BP STABLE AND NO PRESSORS, CANCEL UPCOMING ALBUMIN ORDERS
[2016-08-29] MEDS ORDERED: ALBUMIN 25% 50 GM in PREMIX 1 EA IV SCH (01:00)
[2016-08-29] MEDS ORDERED: ALBUMIN 25% 25 GM in PREMIX 1 EA IV SCH (01:00)
--- NOTE | 2016-08-29 01:28 | NUR ---
PT GIVEN 4 BOTTLES OF ALBUMIN 12.5 G. WHEN I SCANNED THE BOTTLE, EMAR ONLY ASKED ME TO SCAN ONE BOTTLE, BUT I GAVE 4 BOTTLES 12.5 G
[2016-08-29 04:43] LABS: BASOPHILS # (AUTO) 0.1 /CMM (0.0-0.2); BASOPHILS % (AUTO) 0.6 % (0.0-2.0); EOSINOPHILS % (AUTO) 6.3 % (0.0-6.0); HEMATOCRIT 23 % (39-51); HEMOGLOBIN 7.4 g/dL (13.5-17.5); LYMPHOCYTES # (AUTO) 2.4 /CMM (0.8-4.8); LYMPHOCYTES % (AUTO) 15.1 % (20.0-44.0); MEAN CORPUSCULAR HEMOGLOBIN 30 PG (26.0-33.0); MEAN CORPUSCULAR HGB CONC 32 g/dl (31.0-36.0); MEAN CORPUSCULAR VOLUME 91 fL (80-96); MONOCYTES # (AUTO) 1.4 /CMM (0.1-1.30); MONOCYTES % (AUTO) 8.8 % (2.0-12.0); NEUTROPHILS # (AUTO) 11.2 /CMM (1.8-8.9); NEUTROPHILS % (AUTO) 69.2 % (43.0-81.0); PLATELET COUNT (AUTO) 363 /CMM (150-450); RDW COEFFICIENT OF VARIATION 22.8 (11.5-15.0); WHITE BLOOD COUNT (AUTO) 16.3 K/uL (4.3-11.0)
[2016-08-29 04:53] LABS: IRON, SERUM 32 ug/dl (50-175); TOTAL IRON BINDING CAPACITY 106 ug/dl (250-450)
[2016-08-29 05:02] LABS: CALCIUM, SERUM 9.8 mg/dL (8.5-10.1); CREATININE 4.1 mg/dL (0.6-1.3); MAGNESIUM 2.1 mg/dL (1.8-2.4); PHOSPHORUS 5.9 mg/dL (2.5-4.9); POTASSIUM 3.6 mmol/L (3.5-5.1)
[2016-08-29 05:35] LABS: ANISOCYTOSIS 2+; PLATELET ESTIMATE ADEQUATE
[2016-08-29] MEDS ORDERED: BLOOD IV SET 1 EA INFUS.SET MC ONE (07:42)
--- NOTE | 2016-08-29 08:00 | NUR ---
DATA ANALYTICS DEVELOPER NOTE: RECEIVED PATIENT ON HD SINCE 0600, 1U OF PRBC CHECKED WITH OPTICAL MECHANIC RN TARYN AND ADMINISTERED WITH HD. PATIENT ALERT AND ORIENTED TO SELF, APHASIC, TRACHED WITH PORTEX 8 AC 22 40 500 5, TOLERATING WELL NO DISTRESS NOTED SR ON MONITOR. GTUBE CLAMPED, NOTED WITH ACTIVE GI BLEED, WITH DARK RED BLOODY STOOLS. ANURIC. WITH DENISE PICC AND RIGHT FEMORAL ACE NEOSYNEPHRINE OFF SINCE 4AM, TKO NS RUNNING. PATIENT MADE COMFORTABLE, SAFETY MEASURES OBSERVED. CALL LIGHT PLACED WITHIN REACH. ONGOING MONITORING
--- NOTE | 2016-08-29 09:00 | NUR ---
CARPET RENOVATOR NOTE: HD COMPLETE, 2L OUT, 1U OF PRBC ADMINISTERED WITH HD. NO DISTRESS NOTED. PATIENT TOLERATE WELL. NO S/S OF TRANSFUSION REACTION NOTED. ONGOING MONITORING.
[2016-08-29] MEDS: Z GUARD REMEDY 2 OZ OINT TP SCH (09:42)
[2016-08-29] MEDS: HYDROGEL DRESSING 90 GM TUBE TP SCH (09:42)
[2016-08-29] MEDS ORDERED: EPOETIN ALFA (10,000 UNIT) 10,000 UNIT/ML VIAL SQ ONE (10:00)
--- NOTE | 2016-08-29 13:00 | NUR ---
PATIENT PLACEMENT COORDINATOR NOTE: PATIENT CLEANED, NOTED WITH DARK RED BLOODY STOOL. BED BATH GIVEN, BEDDING CHANGED. WOUND CARE RENDERED, PATIENT TURNED AND REPOSITIONED AND EXTREMITIES OFFLOADED. SAFETY MEASURES OBSERVED. ONGOING MONITORING
[2016-08-29] MEDS: PANTOPRAZOLE 40 MG VIAL IV SCH (13:31)
[2016-08-29] MEDS ORDERED: DEXTROSE 50%-WATER 50 ML DISP.SYRIN IV PRN (14:30)
[2016-08-29] MEDS: BLOOD SUGAR DIAGNOSTIC 1 EACH STRIP IN SCH ×2 (18:01→23:14)
[2016-08-29] MEDS: INSULIN REGULAR, HUMAN 100 UNIT/ML 3 ML VIAL SQ PRN ×2 (18:02→23:23)
--- NOTE | 2016-08-29 20:06 | NUR ---
PT RECEIVED TRACHED ON VENT WITH PORTEX 8. NO RESP DISTRESS NOTED. PT TOLERATING VENT SETTINGS. SX'D FOR MOD AMT OF THICK PALE SECRETIONS. VENT ALARMS SET AND AUDIBLE. AMBU BAG AT BEDSIDE. TRACH CUFF CHECKED ED CASE MANAGER. WILL CONTINUE TO MONITOR. Addendum: 08/29/16 at 2008 by SHABANA VALDERRAMA RT Amended: Links added.
[2016-08-29] MEDS ORDERED: IV NS 0.9% 250 ML IV ONE (22:49)
[2016-08-30] VITALS (44 sets, daily range): BP systolic 89–140; BP diastolic 27–98
[2016-08-30 05:19] LABS: BASOPHILS # (AUTO) 0.1 /CMM (0.0-0.2); BASOPHILS % (AUTO) 0.4 % (0.0-2.0); EOSINOPHILS # (AUTO) 1.2 /CMM (0.0-0.7); EOSINOPHILS % (AUTO) 7.7 % (0.0-6.0); HEMATOCRIT 30 % (39-51); HEMOGLOBIN 9.4 g/dL (13.5-17.5); LYMPHOCYTES # (AUTO) 2.3 /CMM (0.8-4.8); LYMPHOCYTES % (AUTO) 14.1 % (20.0-44.0); MEAN CORPUSCULAR HEMOGLOBIN 28 PG (26.0-33.0); MEAN CORPUSCULAR HGB CONC 32 g/dl (31.0-36.0); MEAN CORPUSCULAR VOLUME 89 fL (80-96); MONOCYTES # (AUTO) 1.5 /CMM (0.1-1.30); MONOCYTES % (AUTO) 9.3 % (2.0-12.0); NEUTROPHILS % (AUTO) 68.5 % (43.0-81.0); PLATELET COUNT (AUTO) 398 /CMM (150-450); RDW COEFFICIENT OF VARIATION 22.8 (11.5-15.0); RED BLOOD CELL COUNT(AUTO) 3.32 MIL/uL (4.5-6.0); WHITE BLOOD COUNT (AUTO) 16.1 K/uL (4.3-11.0)
[2016-08-30] MEDS: PIPERACILLIN /TAZOBACTAM 2.25 G in IV D5W 50 ML IV SCH ×4 (05:30→23:56)
[2016-08-30 05:43] LABS: ALBUMIN 2.4 g/dL (3.4-5.0); BILIRUBIN,TOTAL 0.6 mg/dL (0.2-1.0); CALCIUM, SERUM 9.4 mg/dL (8.5-10.1); CREATININE 4.6 mg/dL (0.6-1.3); POTASSIUM 3.9 mmol/L (3.5-5.1); TOTAL PROTEIN, SERUM 7.3 g/dL (6.4-8.2)
[2016-08-30] MEDS: BLOOD SUGAR DIAGNOSTIC 1 EACH STRIP IN SCH ×5 (06:16→23:47)
[2016-08-30] MEDS: INSULIN REGULAR, HUMAN 100 UNIT/ML 3 ML VIAL SQ PRN ×4 (06:24→23:49)
--- NOTE | 2016-08-30 06:38 | NUR ---
0600 VS STABLE WOUND CARE DONE. HAD ONE WILLIAM BLOODY BM. AROUND 100 CC. SUCTIONED MOD. AMTS CREAMY THICK MUCUS. Addendum: 08/30/16 at 0640 by RUTH ANN AVILA RN Amended: Links added.
--- NOTE | 2016-08-30 07:25 | NUR ---
ICU/RN: PT RECEIVED TRACHED, ON VENT, TOLERATING CURRENT SETTINGS AC22 TV 600, FIO2 40% PEEP 5 ON PORTEX 8. NO S/S DISTRESS NOTED. DENISE PICC PATENT AND INTACT WITH TKO INFUSING. R FEM HD CATH DRESSING C/D/I, NO ACTIVE BLEEDING NOTED. DRESSINGS C/D/I, BILAT HEELS OFFLOADED. NO ACTIVE BLEEDING NOTED. ALARM SOUNDS AUDIBLE. WILL CONT TO MONITOR PT STATUS.
[2016-08-30] MEDS: HYDROGEL DRESSING 90 GM TUBE TP SCH (08:00)
[2016-08-30] MEDS: Z GUARD REMEDY 2 OZ OINT TP SCH (08:00)
--- NOTE | 2016-08-30 14:00 | NUR ---
ICU/RN: WOUND CARE RENDERED. PT TOLERATED WELL.
[2016-08-30] MEDS: PANTOPRAZOLE 40 MG VIAL IV SCH (14:33)
--- NOTE | 2016-08-30 18:45 | NUR ---
ICU/RN: PT S/B DR MORSE; NOTIFIED OF BLOODY BM THIS AM. STILL WAITING FOR DR IVEY TO SEE PT. CALL PLACED TO DR IVEY, LEFT MESSAGE. PT REMAINS HEMODYNAMICALLY STABLE. LABS DW . PER OK TO TRANSFER TO [facility].
--- NOTE | 2016-08-30 19:09 | NUR ---
ICU/RN: PT REMAINS IN STABLE CONDITION, TOLERATING CURRENT VENT SETTINGS, NO ACTIVE BLEEDING NOTED. WILL ENDORSE CARE TO PM RN FOR MILLIE.
[2016-08-31] VITALS (9 sets, daily range): BP systolic 102–142; BP diastolic 33–62
--- NOTE | 2016-08-31 03:28 | NUR ---
RN:TD: PT RECEIVED FROM ICU. PT HAD MODERATE AMOUNT OF DARK STOOL. AWARE. PT TO RECEIVE HD TODAY. NO ACUTE DISTRESS. PT REQUIRES LEFT ARM SOFT WRIST RESTRAINT HE CONTINUES TO REACH FOR TRACH AND ATTEMPTS TO REMOVE IMPORTANT LINES, DESPITE EDUCATION. RESTRAINT PROTOCOL FOLLOWED. WILL CONTINUE TO MONITOR CLOSELY.
[2016-08-31] MEDS ORDERED: IV SET PRIMARY PUMP SET 1 EA INFUS.SET MC ONE ×2 (05:05→18:04)
[2016-08-31] MEDS: PIPERACILLIN /TAZOBACTAM 2.25 G in IV D5W 50 ML IV SCH ×2 (05:20→12:45)
[2016-08-31] MEDS: INSULIN REGULAR, HUMAN 100 UNIT/ML 3 ML VIAL SQ PRN ×4 (05:23→23:11)
[2016-08-31 06:51] LABS: BASOPHILS # (AUTO) 0.1 /CMM (0.0-0.2); BASOPHILS % (AUTO) 0.4 % (0.0-2.0); EOSINOPHILS # (AUTO) 1.3 /CMM (0.0-0.7); EOSINOPHILS % (AUTO) 7.4 % (0.0-6.0); HEMATOCRIT 32 % (39-51); HEMOGLOBIN 10.1 g/dL (13.5-17.5); LYMPHOCYTES # (AUTO) 2.5 /CMM (0.8-4.8); LYMPHOCYTES % (AUTO) 14.7 % (20.0-44.0); MEAN CORPUSCULAR HEMOGLOBIN 28 PG (26.0-33.0); MEAN CORPUSCULAR HGB CONC 32 g/dl (31.0-36.0); MEAN CORPUSCULAR VOLUME 89 fL (80-96); MONOCYTES # (AUTO) 1.6 /CMM (0.1-1.30); MONOCYTES % (AUTO) 9.5 % (2.0-12.0); NEUTROPHILS # (AUTO) 11.7 /CMM (1.8-8.9); PLATELET COUNT (AUTO) 409 /CMM (150-450); RDW COEFFICIENT OF VARIATION 23.1 (11.5-15.0); WHITE BLOOD COUNT (AUTO) 17.2 K/uL (4.3-11.0)
[2016-08-31 07:31] LABS: CALCIUM, SERUM 9.7 mg/dL (8.5-10.1); CREATININE 5.6 mg/dL (0.6-1.3); MAGNESIUM 2.2 mg/dL (1.8-2.4)
[2016-08-31 08:09] LABS: PHOSPHORUS 9.7 mg/dL (2.5-4.9)
[2016-08-31] MEDS ORDERED: EPOETIN ALFA (10,000 UNIT) 10,000 UNIT/ML VIAL SQ SCH (10:00)
--- NOTE | 2016-08-31 10:00 | NUR ---
R PICC VISUALIZED IN RIJ ON CXR DISCUSSED WITH MINI NEEDS TO BE PULLED BACK.
--- NOTE | 2016-08-31 11:00 | NUR ---
DARA HOLM NOTIFIED NEED TO PUL BACK PICC. HE WILL BE BACK TO REPLACE THE LINE.
[2016-08-31] MEDS: BLOOD SUGAR DIAGNOSTIC 1 EACH STRIP IN SCH ×3 (12:32→23:10)
[2016-08-31] MEDS: Z GUARD REMEDY 2 OZ OINT TP SCH (12:49)
[2016-08-31] MEDS: HYDROGEL DRESSING 90 GM TUBE TP SCH (12:49)
[2016-08-31] MEDS: PANTOPRAZOLE 40 MG VIAL IV SCH (12:56)
--- NOTE | 2016-08-31 16:00 | NUR ---
DARA AT BEDSIDE, MIDLINE INSERTED. L H/L OCCLUDED, NOW D/C
[2016-08-31] MEDS ORDERED: DOSING PER PHARMACY-AMIKACI IV XX PRN (17:00)
[2016-08-31] MEDS ORDERED: FEE PK DOSING 1 MIN EA MC ONE (17:18)
[2016-08-31] MEDS ORDERED: SECONDARY IV SET 1 EA INFUS.SET MC ONE (18:04)
[2016-08-31] MEDS ORDERED: IV NS 0.9% 250 ML IV ONE (18:05)
[2016-08-31] MEDS: MICAFUNGIN SODIUM 100 MG in IV NS 0.9% 100 ML IV SCH (18:10)
[2016-08-31] MEDS ORDERED: AMIKACIN 500 MG in IV D5W 100 ML IV ONE (18:30)
--- NOTE | 2016-08-31 19:30 | NUR ---
RN INITIAL NOTES RECEIVED PT AWAKE ON BED, A/O X 1 ONLY, NON-VERBAL. ON VENT AC 22, TV 600, FIO2 40%, PEEP 5, PORTEX 8, NO S/S OF RESP DISTRESS. SINUS TACH ON THE MONITOR, HR 100'S. PT ANURIC, ON DIAPERS ONLY. RIGHT UPPER ARM MIDLINE IS OCCLUDED, UNABLE TO FLUSH, WILL START A NEW PERIPHERAL IV ACCESS. RIGHT FEMORAL HD CATH NOTED. BED LOW AND LOCKED, SIDERAILS UP. WILL MONITOR Addendum: 08/31/16 at 3666 by MICHAEL MORRIS RN PT IS NPO SO GT IS CURRENTLY CLAMPED
[2016-08-31] MEDS: LINEZOLID RTU BAG 600 MG in PREMIX 1 EA IV SCH (21:20)
[2016-09-01] VITALS (8 sets, daily range): BP systolic 111–215; BP diastolic 29–116
[2016-09-01] MEDS: BLOOD SUGAR DIAGNOSTIC 1 EACH STRIP IN SCH ×3 (05:35→17:00)
[2016-09-01] MEDS ORDERED: AMIKACIN 500 MG in IV D5W 100 ML IV PRN (06:00)
--- NOTE | 2016-09-01 06:30 | NUR ---
RN CLOSING NOTES PT REMAINS STABLE OF THE MOMENT. ALL DUE MEDS GIVEN, AM CARE PROVIDED. WILL ENDORSE CONTINUITY OF CARE TO AM RN
[2016-09-01 07:10] LABS: BASOPHILS # (AUTO) 0.1 /CMM (0.0-0.2); BASOPHILS % (AUTO) 0.4 % (0.0-2.0); EOSINOPHILS # (AUTO) 0.5 /CMM (0.0-0.7); EOSINOPHILS % (AUTO) 2.8 % (0.0-6.0); HEMATOCRIT 32 % (39-51); HEMOGLOBIN 10.4 g/dL (13.5-17.5); LYMPHOCYTES % (AUTO) 16.3 % (20.0-44.0); MEAN CORPUSCULAR HEMOGLOBIN 29 PG (26.0-33.0); MEAN CORPUSCULAR HGB CONC 32 g/dl (31.0-36.0); MEAN CORPUSCULAR VOLUME 90 fL (80-96); MONOCYTES # (AUTO) 1.8 /CMM (0.1-1.30); MONOCYTES % (AUTO) 9.8 % (2.0-12.0); NEUTROPHILS # (AUTO) 12.9 /CMM (1.8-8.9); NEUTROPHILS % (AUTO) 70.7 % (43.0-81.0); PLATELET COUNT (AUTO) 389 /CMM (150-450); RDW COEFFICIENT OF VARIATION 22.4 (11.5-15.0); RED BLOOD CELL COUNT(AUTO) 3.62 MIL/uL (4.5-6.0); WHITE BLOOD COUNT (AUTO) 18.2 K/uL (4.3-11.0)
--- NOTE | 2016-09-01 07:11 | NUR ---
[facility] RN NOTES RECEIVED PATIENT AOX1 , NON VERBAL , AGITATED , WITH L WRIST RESTRAINS VISUAL CHECK PER PROTOCOL . NOT IN ACUTE DISTRESS , RESPIRATIONS EVEN AND UNLABORED , SPO2 OF 100% VIA MECHANICAL VENTILATOR SETTINGS ORDERED , TRACH OF PORTEX # [address] , SR 85 ON TELE MONITOR , DENISE MIDLINE OCCLUDED , UNABLE TO FLUSH , WILL CALL MIDLINE NURSE TO CHECK THE LINE , R FEMORAL HD CATH C/D/I , ALL NEEDS ATTENDED BED ON LOW AND LOCKED POSITION , SIDE RAILS X2 , CALL LIGHT WITHIN REACH , HOB @ 45 , WILL CONTINUE TO MONITOR .
[2016-09-01 07:21] LABS: CALCIUM, SERUM 9.1 mg/dL (8.5-10.1); CREATININE 4.1 mg/dL (0.6-1.3); POTASSIUM 3.9 mmol/L (3.5-5.1)
[2016-09-01] MEDS: LINEZOLID RTU BAG 600 MG in PREMIX 1 EA IV SCH ×2 (08:46→20:16)
[2016-09-01] MEDS: Z GUARD REMEDY 2 OZ OINT TP SCH (08:47)
[2016-09-01] MEDS: HYDROGEL DRESSING 90 GM TUBE TP SCH (08:47)
--- NOTE | 2016-09-01 09:30 | NUR ---
[facility] RN NOTES TRANSFERRED PT TO CT SCAN DEPARTMENT FOR CT OF THE CHEST , TRASNFERED VIA CLS PROTOCOL , PT STABLE AT THIS TIME , WILL CONTINUE TO MONITOR
--- NOTE | 2016-09-01 09:45 | NUR ---
WIRE STITCHER NOTES PT STABLE POST CT SCAN OF THE CHEST , NO MILLIE NOTED , WILL CONTINUE TO MONITOR
[2016-09-01 10:01] LABS: ANISOCYTOSIS 3+; BAND % (MANUAL) 7 % (0.0-5.0); EOSINOPHILS % (MANUAL) 1 % (0-4); LYMPHOCYTES % (MANUAL) 3 % (16-48); MONOCYTES % (MANUAL) 8 % (0-11.0); NEUTROPHILS % (MANUAL) 81 (42-76); PLATELET ESTIMATE INCREASED
[2016-09-01] MEDS: INSULIN REGULAR, HUMAN 100 UNIT/ML 3 ML VIAL SQ PRN (11:57)
--- NOTE | 2016-09-01 13:18 | NUR ---
[facility] RN NOTES CALLED DR MORSE , NOTIFIED PT BP @ 1200 IS 210/116 @ RIGHT THIGH , RE ASSESSMENT DONE AFTER 30 MINUTES , BP SHOWS 201/101 , AWAITING FOR ORDERS , WILL CONTINUE TO MONITOR .
[2016-09-01] MEDS: PANTOPRAZOLE 40 MG VIAL IV SCH (13:21)
[2016-09-01] MEDS ORDERED: AMIKACIN 450 MG in IV D5W 100 ML IV PRN (15:05)
--- NOTE | 2016-09-01 15:09 | NUR ---
[facility] RN NOTES SPOKE WITH DR MORSE , NOTIFIED PT SBP OF 200'S , VERIFIED CARDIZEM 120MG ORDER PT IS NPO , NOTIFIED ALSO THAT PT HAS MODERATE DARK SOFT STOOLS WITH MINIMAL MUCOID BLOOD X1 , EGD , COLONOSCOPY STILL PENDING , PER MD START NOVASOURCE @ 50ML/HR TOLERATED AND GIVE CARDIZEM 120MG X1
[2016-09-01] MEDS ORDERED: DILTIAZEM HCL 30 MG TABLET GT ONE (15:30)
--- NOTE | 2016-09-01 15:45 | NUR ---
[facility]ADDIE RN NOTES DR MORSE AT BEDSIDE , NOTIFIED PT IS AFEBRILE , WBC 18.2 DR HAIR ORDERED BLOOD CULTURE VIA HD CATH BEFORE DIALYSIS , PT HAS 1 X BM MODERATE IN AMOUNT , SOFT IN CONSISTENCY , BLACK IN COLOR WITH SMALL AMOUNT OF MUCOID BLOOD , TOLERATING CURRENT VENT SETTINGS , DISCUSSED RESULT OF CT SCAN OF THE CHEST , NO EGD / COLONOSCOPY SCHEDULE OF NOW , BP OF 123/29 , CARDIZEM 120MG GT NOT GIVEN BP DROPS , MD AWARE
[2016-09-01] MEDS: MICAFUNGIN SODIUM 100 MG in IV NS 0.9% 100 ML IV SCH (17:00)
--- NOTE | 2016-09-01 17:35 | NUR ---
[facility] RN NOTES FOLLOWED UP WITH DR IVEY REGARDING PT PLAN FOR EGD AND COLONOSCOPY, PT HAS NO SCHEDULE YET , PT HAS 1 BM MODERATE IN AMOUNT DARK IN COLOR WITH SMALL AMOUNT OF MUCOID BLOOD , H/H 10. , DR MORSE ORDERED TO START GT FEEDING , VERIFIED WITH DR IVEY IF ITS OK TO START FEEDING PER MD HE WILL CHECK PT
--- NOTE | 2016-09-01 18:45 | NUR ---
DOSIMETRIST NOTES NOTIFIED DR MORSE REGARDING PT MEDICATION RECONCILIATION / HOME MEDICATIONS WERE NOT REVIEWED , AWAITING FOR MD'S ORDER
--- NOTE | 2016-09-01 18:49 | NUR ---
CLIN NURSE NOTES EGD AND ANESTHESIA CONSENT SIGNED BY DR MORSE VIA TELEPHONE WITNESS BY CHARGE NURSE BRITNI , DR IVEY AT BEDSIDE , SIGNED EGD AND ANESTHESIA CONSENT
--- NOTE | 2016-09-01 19:45 | NUR ---
MADDIE/RN RECEIVED PT ON VENT PER TRACH 40%FI02, SAT 95-97%.PT AWAKE,DOES NOT FOLLOW COMMANDS.DR IVEY HERE TO SEE PT. ORDERED FLEX SIGMOIDOSCOPY IN AM.
--- NOTE | 2016-09-01 21:30 | NUR ---
MADDIE/RN TAP WATER ENEMA DONE TILL CLEAR ORDERED USED 3BAGS OF TAP H20.NO STOOL AND MINIMAL BLEEDING NOTED.
[2016-09-02] VITALS (7 sets, daily range): BP systolic 99–169; BP diastolic 35–80
[2016-09-02] MEDS: BLOOD SUGAR DIAGNOSTIC 1 EACH STRIP IN SCH ×5 (00:01→23:41)
[2016-09-02] MEDS: INSULIN REGULAR, HUMAN 100 UNIT/ML 3 ML VIAL SQ PRN ×3 (00:01→23:42)
--- NOTE | 2016-09-02 06:00 | NUR ---
MADDIE/RN PT. KEPT NPO,FOR EGD AND FLEX SIGMOIDOSCOPY TODAY.VITAL SIGNS STABLE.
[2016-09-02] MEDS ORDERED: IV NS 0.9% 250 ML IV ONE (07:09)
--- NOTE | 2016-09-02 07:20 | NUR ---
MADDIE NOTES REPORT AND CARE OF PT. GIVEN TO DONNA WILD.
--- NOTE | 2016-09-02 07:25 | NUR ---
WOUND CARE CONSULT LATE ENTRY FOR 08/28/16 PATIENT SEEN AND SKIN INTEGRITY EVALUATED ON 08/28/16. SEE DIRECTOR SERVICE ASSESSMENT AND LATE ENTRY ON 09/02/16. RECOMMEND CONTINUE ALL SKIN MANAGEMENT AND TREATMENT PLANS PER CURRENT PLANS OF CARE. CURRENT ZENY AT 9, 1ST STEP LOW AIRLOSS MATTRESS IN USE FOR TREATMENT. CONTINUE TURNING, REPOSITIONING Q 2 HOURS PATIENT CONDITION PERMITS AND CONTINUE BILATERAL HEEL FLOATING. ALL DISCUSSED WITH NURSING AT THE BEDSIDE. Addendum: 09/02/16 at 0728 by MARGARET PARRISH WNDNU Amended: Links added.
[2016-09-02 07:37] LABS: BASOPHILS % (AUTO) 0.3 % (0.0-2.0); EOSINOPHILS # (AUTO) 0.7 /CMM (0.0-0.7); EOSINOPHILS % (AUTO) 4.9 % (0.0-6.0); HEMATOCRIT 32 % (39-51); HEMOGLOBIN 10.2 g/dL (13.5-17.5); LYMPHOCYTES % (AUTO) 13.8 % (20.0-44.0); MEAN CORPUSCULAR HEMOGLOBIN 29 PG (26.0-33.0); MEAN CORPUSCULAR HGB CONC 32 g/dl (31.0-36.0); MEAN CORPUSCULAR VOLUME 89 fL (80-96); MONOCYTES # (AUTO) 1.1 /CMM (0.1-1.30); MONOCYTES % (AUTO) 7.5 % (2.0-12.0); NEUTROPHILS # (AUTO) 10.5 /CMM (1.8-8.9); NEUTROPHILS % (AUTO) 73.5 % (43.0-81.0); PLATELET COUNT (AUTO) 428 /CMM (150-450); RDW COEFFICIENT OF VARIATION 21.9 (11.5-15.0); RED BLOOD CELL COUNT(AUTO) 3.56 MIL/uL (4.5-6.0); WHITE BLOOD COUNT (AUTO) 14.3 K/uL (4.3-11.0)
[2016-09-02 07:48] LABS: ALBUMIN 2.4 g/dL (3.4-5.0); BILIRUBIN,TOTAL 0.5 mg/dL (0.2-1.0); CALCIUM, SERUM 8.9 mg/dL (8.5-10.1); CREATININE 4.9 mg/dL (0.6-1.3); POTASSIUM 3.7 mmol/L (3.5-5.1); TOTAL PROTEIN, SERUM 7.8 g/dL (6.4-8.2)
[2016-09-02] MEDS: HYDROGEL DRESSING 90 GM TUBE TP SCH (08:26)
[2016-09-02] MEDS: LINEZOLID RTU BAG 600 MG in PREMIX 1 EA IV SCH ×2 (08:26→21:07)
[2016-09-02] MEDS: Z GUARD REMEDY 2 OZ OINT TP SCH (08:27)
[2016-09-02] MEDS ORDERED: ANESTHESIA TRAY IN PYXIS 1 EA TRAY MC ONE (11:52)
[2016-09-02] MEDS: RENAL NOVASOURCE 1,000 ML BOTTLE GT PRN ×2 (12:16→21:12)
[2016-09-02] MEDS: PANTOPRAZOLE 40 MG VIAL IV SCH (12:16)
[2016-09-02] MEDS: HYDROCORTISONE ACETATE 25 MG/SUPP.RECT SUPP.RECT RC SCH ×2 (13:30→21:07)
[2016-09-02] MEDS: MICAFUNGIN SODIUM 100 MG in IV NS 0.9% 100 ML IV SCH (17:44)
--- NOTE | 2016-09-02 19:41 | NUR ---
LAMINATOR PREFORMS: RECEIVED PT FROM DONNA/RN, PT HAS TRACH ON VENT DEPENDENT, HAVING DIALYSIS RIGHT NOW, V/S STABLE. TURN AND REPOSITIONED FOR COMFORT. SAFETY PRECAUTION PLACED. FULL ASSESSMENT SEE ON FLOW SHEET. ONGOING MONITORING....
[2016-09-02] MEDS ORDERED: IV NS 0.9% 250 ML IV PRN (21:30)
[2016-09-03] VITALS: BP 140/49
[2016-09-03 00:09] VITALS: BP 148/118
[2016-09-03 04:00] VITALS: BP 148/66
[2016-09-03] MEDS: BLOOD SUGAR DIAGNOSTIC 1 EACH STRIP IN SCH ×2 (05:52→12:21)
[2016-09-03] MEDS: INSULIN REGULAR, HUMAN 100 UNIT/ML 3 ML VIAL SQ PRN ×2 (05:55→12:27)
--- NOTE | 2016-09-03 06:30 | NUR ---
SPECIALTY COOK CLOSING NOTES PT REMAINED STABLE DURING SHIFT. NO SIGNIFICANT CHANGES. HD LAST NIGHT 1.2L OUTPUT. ALL SAFETY MEASURES IN PLACE. WILL ENDORSE TO NEXT SHIFT.
--- NOTE | 2016-09-03 07:30 | NUR ---
RN NOTES RECEIVED PATIENT IN BED, ON [facility] VENT WITH BREATHING NORMAL, EVEN AND UNLABORED. NO SOB NOTED. NO ACUTE DISTRESS NOTED. VENT SETTING REVIEWED AND VERIFIED. TOLERATED WELL. AFEBRILE. TELE MONITOR REVEALS SR WITH I DEGREE AV BLOCK, HR=88. IV L HAND AND DENISE MIDLINE ARE PATENT AND INTACT. ON GT FEED NOVASOURCE @50CC/HR. TOLERATED WELL. ASPIRATION PRECAUTION TAKEN. HOB ELEVATED. KEPT CLEAN, DRY AND COMFORTABLE. ALL NEEDS ATTENDED. SAFETY MEASURE OBSERVED. CALL LIGHT WITH IN REACH. WILL CONT TO MONITOR.
[2016-09-03 07:32] LABS: BASOPHILS # (AUTO) 0.1 /CMM (0.0-0.2); BASOPHILS % (AUTO) 0.6 % (0.0-2.0); EOSINOPHILS # (AUTO) 0.5 /CMM (0.0-0.7); EOSINOPHILS % (AUTO) 3.9 % (0.0-6.0); HEMATOCRIT 31 % (39-51); HEMOGLOBIN 9.9 g/dL (13.5-17.5); LYMPHOCYTES # (AUTO) 1.6 /CMM (0.8-4.8); LYMPHOCYTES % (AUTO) 12.2 % (20.0-44.0); MEAN CORPUSCULAR HEMOGLOBIN 29 PG (26.0-33.0); MEAN CORPUSCULAR HGB CONC 32 g/dl (31.0-36.0); MEAN CORPUSCULAR VOLUME 90 fL (80-96); MONOCYTES # (AUTO) 1.1 /CMM (0.1-1.30); MONOCYTES % (AUTO) 8.2 % (2.0-12.0); NEUTROPHILS % (AUTO) 75.1 % (43.0-81.0); PLATELET COUNT (AUTO) 411 /CMM (150-450); RDW COEFFICIENT OF VARIATION 20.7 (11.5-15.0); RED BLOOD CELL COUNT(AUTO) 3.43 MIL/uL (4.5-6.0); WHITE BLOOD COUNT (AUTO) 13.3 K/uL (4.3-11.0)
[2016-09-03 07:39] LABS: CALCIUM, SERUM 8.4 mg/dL (8.5-10.1); CREATININE 3.6 mg/dL (0.6-1.3); POTASSIUM 3.5 mmol/L (3.5-5.1)
[2016-09-03 08:00] VITALS: BP 158/44
[2016-09-03] MEDS: LINEZOLID RTU BAG 600 MG in PREMIX 1 EA IV SCH (08:15)
[2016-09-03] MEDS: HYDROGEL DRESSING 90 GM TUBE TP SCH (08:16)
[2016-09-03] MEDS: Z GUARD REMEDY 2 OZ OINT TP SCH (08:17)
[2016-09-03] MEDS: HYDROCORTISONE ACETATE 25 MG/SUPP.RECT SUPP.RECT RC SCH (08:18)
[2016-09-03 12:00] VITALS: BP 154/47
--- NOTE | 2016-09-03 13:00 | NUR ---
RN NOTES MD DR IVEY NOTIFIED THAT PATIENT HAS STILL RECTAL BLEEDING. PER OK TO DISCHARGE PATIENT WITH RECTAL BLEEDING. CHARGE NURSE JACKIE MADE AWARE. DR MORSE MADE AWARE. WILL CONT TO MONITOR.
[2016-09-03] MEDS: PANTOPRAZOLE 40 MG VIAL IV SCH (14:28)
[2016-09-03 16:00] VITALS: BP 130/52
--- NOTE | 2016-09-03 16:30 | NUR ---
RN NOTES PATIENT DISCHARGED IN STABLE CONDITION WITH BREATHING NORMAL, EVEN AND UNLABORED. ON MECH VENT, TOLERATED WELL. NO SOB NOTED. NO ACUTE DISTRESS NOTED. IV L HAND IS REMOVED. DENISE MIDLINE IS PATENT AND INTACT. GT INTACT. BOWEL SOUND PRESENT. PULSES PRESENT. KEPT CLEAN, DRY AND COMFORTABLE. ALL NEEDS ATTENDED. REPORT GIVEN TO EUGENIA WILD. DISCHARGE INSTRUCTION GIVEN WITH FEEDBACK. UNDERSTOOD WELL. PATIENT LEFT VIA AMBULANCE WITH 2 MONKEY KEEPER AND RESPIRATORY THERAPIST IN STABLE CONDITION.
== END 2016-09-03 17:07 | DRG 720 ==
LOC: ER 15:26 → ICU 18:37 → TELE-TD 08-31 01:27 → TELE1 09-02 10:29
PROVIDERS: ADMIT Internal Medicine Rheumatology; ATTEND Internal Medicine Rheumatology
PROC: 5A1955Z Respiratory Ventilation, Greater than 96 Consecutive Hours (ICD-10-PCS; principal; 2016-08-27)
PROC: 30233N1 Transfusion of Nonautologous Red Blood Cells into Peripheral Vein, Percutaneous Approach (ICD-10-PCS; principal; 2016-08-27)
PROC: 5A1D60Z (ICD-10-PCS; 2016-08-29)
PROC: 05H533Z Insertion of Infusion Device into Right Subclavian Vein, Percutaneous Approach (ICD-10-PCS; 2016-08-31)
PROC: B546ZZA Ultrasonography of Right Subclavian Vein, Guidance (ICD-10-PCS; 2016-08-31)
PROC: 0DBP8ZX Excision of Rectum, Via Natural or Artificial Opening Endoscopic, Diagnostic (ICD-10-PCS; 2016-09-02)
PROC: 0DBN8ZX Excision of Sigmoid Colon, Via Natural or Artificial Opening Endoscopic, Diagnostic (ICD-10-PCS; 2016-09-02)
PROC: 0DB68ZX Excision of Stomach, Via Natural or Artificial Opening Endoscopic, Diagnostic (ICD-10-PCS; 2016-09-02)
DX: A41.9 Sepsis, unspecified organism (principal); R65.21 Severe sepsis with septic shock; G93.40 Encephalopathy, unspecified; Z99.11 Dependence on respirator [ventilator] status; J96.11 Chronic respiratory failure with hypoxia; J44.9 Chronic obstructive pulmonary disease, unspecified; L89.159 Pressure ulcer of sacral region, unspecified stage; L89.613 Pressure ulcer of right heel, stage 3; R13.10 Dysphagia, unspecified; E88.09 Other disorders of plasma-protein metabolism, not elsewhere classified; N18.6 End stage renal disease; E83.39 Other disorders of phosphorus metabolism; K62.5 Hemorrhage of anus and rectum; Z99.2 Dependence on renal dialysis; Z93.1 Gastrostomy status; E11.22 Type 2 diabetes mellitus with diabetic chronic kidney disease; F03.90 Unspecified dementia, unspecified severity, without behavioral disturbance, psychotic disturbance, mood disturbance, and anxiety; G40.909 Epilepsy, unspecified, not intractable, without status epilepticus; K21.9 Gastro-esophageal reflux disease without esophagitis; K74.60 Unspecified cirrhosis of liver; I69.351 Hemiplegia and hemiparesis following cerebral infarction affecting right dominant side; I69.320 Aphasia following cerebral infarction; I12.0 Hypertensive chronic kidney disease with stage 5 chronic kidney disease or end stage renal disease; E83.9 Disorder of mineral metabolism, unspecified; L98.9 Disorder of the skin and subcutaneous tissue, unspecified; L89.629 Pressure ulcer of left heel, unspecified stage; D62 Acute posthemorrhagic anemia; S40.022A Contusion of left upper arm, initial encounter; D50.0 Iron deficiency anemia secondary to blood loss (chronic); S40.021A Contusion of right upper arm, initial encounter; X58.XXXA Exposure to other specified factors, initial encounter; Y93.9 Activity, unspecified; Y92.89 Other specified places as the place of occurrence of the external cause; Y99.9 Unspecified external cause status; F09 Unspecified mental disorder due to known physiological condition; I25.10 Atherosclerotic heart disease of native coronary artery without angina pectoris; J98.11 Atelectasis
CPT/HCPCS: 31720; 36415; 36569; 71010-TC; 71250-TC; 80048-TC; 80053-TC; 80076-TC; 80150; 80202-TC; 82272-TC; 82962-TC; 83540-TC; 83605-TC; 83735-TC; 84100-TC; 84484-TC; 85025-TC; 85027-TC; 85730-TC; 86850-TC; 86921-TC; 87040-TC; 87070-TC; 87081-TC; 87186-TC; 88305-TC; 88313-TC; 88342; 90935-TC; 94003-TC; 94760-TC; 99082-TC; A4216; A4606; A6248; A6253; A6402; A6403; C1751; C9113; J0278; J0885; J1815; J2020; J2185; J2248; J2370; J2543; J2704; J3370; J7030; J7050; J7060; P9016-BL; P9045; P9047; Z7610

== ENCOUNTER 2016-09-08 15:09 | Inpatient (IN) | payer MEDICAID ==
[~2016-09-08] VITALS: Ht 167.6 cm; Wt 103.0 kg
--- NOTE | 2016-09-08 15:32 | NUR ---
SALAZAR VICE PRESIDENT UNDERWRITING DR. HAIR
--- NOTE | 2016-09-08 15:36 | NUR ---
Recieved pt to ed bed from dialysis ctr, per report pt was sent here for evaluation of rt femoral dialysis cath but according to ems, pt completed a 3 hr dialysis. Chronic trach/vent dependent, +GT, rt upper arm midline noted. all needs are attended, seen and evaluated by dr caldera.
[2016-09-08 15:38] VITALS: BP 154/58
--- NOTE | 2016-09-08 15:54 | NUR ---
Dr. negron called back and spoke to Dr. Anglin, per dr negron pt;s rt femoral catheter has a slow flow; possible infection and he would like to put a new one.
[2016-09-08 16:15] LABS: BASOPHILS % (AUTO) 0.1 % (0.0-2.0); EOSINOPHILS # (AUTO) 0.1 /CMM (0.0-0.7); EOSINOPHILS % (AUTO) 0.3 % (0.0-6.0); HEMATOCRIT 24 % (39-51); HEMOGLOBIN 7.9 g/dL (13.5-17.5); LYMPHOCYTES # (AUTO) 1.2 /CMM (0.8-4.8); LYMPHOCYTES % (AUTO) 6.1 % (20.0-44.0); MEAN CORPUSCULAR HEMOGLOBIN 30 PG (26.0-33.0); MEAN CORPUSCULAR HGB CONC 33 g/dl (31.0-36.0); MEAN CORPUSCULAR VOLUME 91 fL (80-96); MONOCYTES # (AUTO) 0.6 /CMM (0.1-1.30); MONOCYTES % (AUTO) 3.3 % (2.0-12.0); NEUTROPHILS # (AUTO) 17.5 /CMM (1.8-8.9); NEUTROPHILS % (AUTO) 90.2 % (43.0-81.0); PLATELET COUNT (AUTO) 433 /CMM (150-450); RDW COEFFICIENT OF VARIATION 18.9 (11.5-15.0); RED BLOOD CELL COUNT(AUTO) 2.65 MIL/uL (4.5-6.0); WHITE BLOOD COUNT (AUTO) 19.4 K/uL (4.3-11.0)
[2016-09-08 16:22] LABS: CALCIUM, SERUM 8.6 mg/dL (8.5-10.1); CREATININE 2.1 mg/dL (0.6-1.3)
[2016-09-08 16:26] LABS: INR 1.01 (0.87-1.13); PROTHROMBIN TIME 10.6 SECS (9.5-12.7)
[2016-09-08] MEDS ORDERED: INSU100V26 SQ (16:26)
[2016-09-08 16:36] LABS: LACTIC ACID 1.5 mmol/L (0.4-2.0)
--- NOTE | 2016-09-08 17:02 | NUR ---
CALLED DR MELISSA MORSE'S OFFICE, LEFT INFO FOR TO CALL BACK
[2016-09-08 17:12] VITALS: BP 130/72
--- NOTE | 2016-09-08 17:12 | NUR ---
Tele [phone]
--- NOTE | 2016-09-08 17:24 | NUR ---
Report given to Alexandria WILD for cont of care.
--- NOTE | 2016-09-08 17:30 | NUR ---
Pt accepted by Dr. Lincoln Alexis, he said he will come to the hospital in 1 hr to put orders.
--- NOTE | 2016-09-08 18:31 | NUR ---
RT called to transfer pt upstairs.
--- NOTE | 2016-09-08 18:50 | NUR ---
COMPUTER TAPE LIBRARIAN NOTE RECEIVED PT FROM ER TO BED 319. PT IN NO APPARENT DISTRESS, ON VENTILATOR. PT NONVERBAL. PLACED ON TELE MONITOR- NSR W/ 1ST DEG BLOCK, RATE OF 100. WILL ENDORSE TO MOTION PICTURE CRITIC RN FOR ADMISSION/MILLIE.
--- NOTE | 2016-09-08 19:30 | NUR ---
INDUCTION MACHINE SETTERSOUS CHEF KITCHEN MANAGER NOTE RECEIVED PT FROM AM NURSE, PT ON CONT. VENT, NON-VERBAL, OPENS EYES AND NODS SOMETIMES, UNABLE TO DETERMINE ORIENTATION, NO GRIMACING OR RESPIRATORY DISTRESS NOTED DURING PHYSICAL ASSESSMENT, PT IS ON BR, WILL REPOSITION EVERY TWO HOURS TO PREVENT SKIN BREAK DOWN, PT CLEAN/DRY AND COMFORTABLE, NEEDS WILL BE ANTICIPATED AND ATTENDED TO, WILL MONITOR HOURLY.
[2016-09-08 20:00] VITALS: BP 109/84
[2016-09-08] MEDS ORDERED: IPRATROPIUM NEB FS 0.5 MG/2.5 ML AMPUL.NEB IH PRN (21:00)
[2016-09-08] MEDS ORDERED: ALBUTEROL FS 2.5 MG/0.5 ML VIAL.NEB IH PRN (21:00)
[2016-09-08] MEDS ORDERED: TRAMADOL HCL 50 MG TABLET GT PRN (21:00)
[2016-09-08] MEDS ORDERED: METOCLOPRAMIDE HCL 10 MG/10 ML UDC GT PRN (21:00)
[2016-09-08] MEDS ORDERED: INSULIN REGULAR, HUMAN 100 UNIT/ML 3 ML VIAL SQ PRN (21:00)
[2016-09-08] MEDS ORDERED: DEXTROSE 50%-WATER 50 ML DISP.SYRIN IV PRN (21:30)
[2016-09-08] MEDS ORDERED: GLYTROL 1,000 ML BAG ONE (21:49)
[2016-09-08] MEDS: ACIDOPHILUS/BULGARICUS 1 EACH TAB.CHEW GT SCH (21:54)
[2016-09-08] MEDS: METRONIDAZOLE 500MG/ NS 100ML 500 MG in PREMIX 1 EA IV SCH (21:59)
[2016-09-08] MEDS: ERGOCALCIFEROL (VITAMIN D 2) 50,000 UNIT CAPSULE GT SCH (21:59)
[2016-09-08] MEDS ORDERED: IV SET PRIMARY PUMP SET 1 EA INFUS.SET MC ONE (22:46)
[2016-09-08] MEDS ORDERED: IV NS 0.9% 250 ML IV ONE (22:46)
[2016-09-08] MEDS ORDERED: SECONDARY IV SET 1 EA INFUS.SET MC ONE (22:47)
[2016-09-08] MEDS: INSULIN DETEMIR 100 UNIT/ML CARTRIDGE SQ SCH (23:13)
[2016-09-08] MEDS: BLOOD SUGAR DIAGNOSTIC 1 EACH STRIP IN SCH (23:13)
[2016-09-08] MEDS: INSULIN REGULAR, HUMAN 100 UNIT/ML 3 ML VIAL SQ PRN (23:15)
[2016-09-09] VITALS: BP 118/64
[2016-09-09] MEDS: IPRATROPIUM NEB FS 0.5 MG/2.5 ML AMPUL.NEB IH SCH ×4 (01:18→20:22)
[2016-09-09] MEDS: ALBUTEROL FS 2.5 MG/0.5 ML VIAL.NEB IH SCH ×4 (01:18→20:22)
[2016-09-09] MEDS: METRONIDAZOLE 500MG/ NS 100ML 500 MG in PREMIX 1 EA IV SCH ×3 (05:33→22:07)
[2016-09-09] MEDS: BLOOD SUGAR DIAGNOSTIC 1 EACH STRIP IN SCH ×4 (05:34→23:53)
--- NOTE | 2016-09-09 06:53 | NUR ---
LIFE MANAGER CLOSING NOTE PT REMAINED STABLE DURING FUR STYLIST, NO PAIN OR RESPIRATORY DISTRESS NOTED, NO SIGNIFICANT CHANGES NOTED FROM ADMISSION, WOUND CARE CONSULT REQUESTED, PT ADMITTED DUE TO HD CATH MALFUNCTION AND POSSIBLE INFECTION, RECEIVING ENTERAL FEEDING GLYTROL AT 50ML/HR PER DR'S ORDER AND TOLERATING WELL, GT PLACEMENT VERIFIED AND NO RESIDUAL PRESENT, PT IS CLEAN/DRY AND COMFORTABLE, SAFETY MEASURE IN PLACE, WILL ENDORSE TO INCOMING NURSE FOR MILLIE.
--- NOTE | 2016-09-09 07:00 | NUR ---
RN NOTES RECEIVED PT ON BED , ALERT ,NON-VERBAL, OPENS EYES AND NODS SOMETIMES, VENT DEPENDENT , TRACH CARE DONE ,TOLERAING CURRENT SETTING WELL, NO DISTRESS NOTED AT THIS TIME, ON TELE SR WITH FIRST DEGREE AVB, SR UP x3, CALL LIGHT WITHIN EASY REACH, KEPT CLEAN AND DRY , CONTINUE TO MONITOR PT CLOSELY AND NOTIFY MD FOR ANY SIGNIFICANT CHANGES .
[2016-09-09 08:00] VITALS: BP 120/45
[2016-09-09] MEDS: PROSOURCE / PROSTAT (PYXIS) 30 ML UDC GT SCH (08:08)
[2016-09-09] MEDS: OXCARBAZEPINE 150 MG TABLET GT SCH ×2 (08:08→17:05)
[2016-09-09] MEDS: PANTOPRAZOLE 40 MG TABLET.DR PO SCH (08:08)
[2016-09-09] MEDS: ACIDOPHILUS/BULGARICUS 1 EACH TAB.CHEW GT SCH ×2 (08:08→21:39)
[2016-09-09] MEDS: ZINC SULFATE 220 MG CAPSULE GT SCH (08:08)
[2016-09-09] MEDS: VIT B CMPLX 3/FA/VIT C/BIOTIN 1 TAB TABLET GT SCH (08:08)
[2016-09-09] MEDS: predniSONE 10 MG TABLET GT SCH (08:09)
[2016-09-09] MEDS: LISINOPRIL (10MG) 10 MG TABLET GT SCH (08:09)
[2016-09-09 09:50] LABS: HEMOGLOBIN 7.8 g/dL (13.5-17.5)
[2016-09-09 09:52] LABS: ALBUMIN 2.3 g/dL (3.4-5.0); BILIRUBIN,TOTAL 0.3 mg/dL (0.2-1.0); CREATININE 2.9 mg/dL (0.6-1.3)
[2016-09-09 09:56] LABS: BASOPHILS # (AUTO) 0.1 /CMM (0.0-0.2); BASOPHILS % (AUTO) 0.5 % (0.0-2.0); EOSINOPHILS # (AUTO) 0.1 /CMM (0.0-0.7); EOSINOPHILS % (AUTO) 0.6 % (0.0-6.0); HEMATOCRIT 25 % (39-51); LYMPHOCYTES # (AUTO) 2.8 /CMM (0.8-4.8); LYMPHOCYTES % (AUTO) 23.7 % (20.0-44.0); MEAN CORPUSCULAR HEMOGLOBIN 29 PG (26.0-33.0); MEAN CORPUSCULAR HGB CONC 31 g/dl (31.0-36.0); MEAN CORPUSCULAR VOLUME 93 fL (80-96); MONOCYTES # (AUTO) 2.1 /CMM (0.1-1.30); MONOCYTES % (AUTO) 17.2 % (2.0-12.0); NEUTROPHILS # (AUTO) 6.9 /CMM (1.8-8.9); PLATELET COUNT (AUTO) 386 /CMM (150-450); RDW COEFFICIENT OF VARIATION 20.2 (11.5-15.0); RED BLOOD CELL COUNT(AUTO) 2.73 MIL/uL (4.5-6.0)
[2016-09-09] MEDS ORDERED: Z GUARD REMEDY 4 OZ OINT TP PRN (10:30)
[2016-09-09] MEDS ORDERED: ALTEPLASE CATHFLO 2 MG/VIAL XX ONE (11:00)
[2016-09-09 11:19] LABS: WHITE BLOOD COUNT (AUTO) 30.8 K/uL (4.3-11.0)
[2016-09-09 11:21] LABS: BAND % (MANUAL) 2 % (0.0-5.0); HYPOCHROMASIA 1+; LYMPHOCYTES % (MANUAL) 24 % (16-48); MONOCYTES % (MANUAL) 18 % (0-11.0); NEUTROPHILS % (MANUAL) 56 (42-76); PLATELET ESTIMATE INCREASED
[2016-09-09 11:30] LABS: ANISOCYTOSIS 2+
[2016-09-09 12:00] VITALS: BP 122/63
--- NOTE | 2016-09-09 12:13 | NUR ---
WOUND CARE CONSULT: PT PRESENTS WITH MULTIPLE WOUNDS, PRESENT ON ADMISSION. RECOMMENDATIONS MADE FOR WOUND CARE AND SKIN PROTECTION. DISCUSSED WITH NURSING STAFF. PT ON BLANCA ISOFLEX LOW AIRLOSS BED. RECOMMEND SURGICAL/DPM CONSULT. IN AGREEMENT WITH PLAN OF CARE. Addendum: 09/09/16 at 1214 by EMILY KITCHEN WNDNU Amended: Links added.
[2016-09-09] MEDS ORDERED: HYDROGEL DRESSING 90 GM TUBE TP PRN (12:30)
[2016-09-09] MEDS: INSULIN REGULAR, HUMAN 100 UNIT/ML 3 ML VIAL SQ PRN ×3 (12:43→23:55)
--- NOTE | 2016-09-09 12:56 | NUR ---
RN LESA SHEA IN DR. CARDOSO OFFICE NOTIFIED REGARDING CONSULT FOR DR CARDOSO
--- NOTE | 2016-09-09 14:18 | NUR ---
RN NOTES SUKHDEEP IN JACLYN CHEN OFFICE EXTENSION NOTIFIED REGARDING ID CONSULT . LEFT A MESSAGE FOR JONATHAN DUMONT ALSO.
[2016-09-09] MEDS: HYDROGEL DRESSING 90 GM TUBE TP SCH (14:22)
[2016-09-09 16:00] VITALS: BP 125/59
--- NOTE | 2016-09-09 18:50 | NUR ---
RN NOTES PT REMAIN THE SAME , VSS STABLE , TRACH CARE DONE ,TOLERATING TF WELL , NO RESIDUAL NOTED , MEDICATED PER MD ORDER , NO SIGNIFICANT CHANGES NOTED ON THIS SHIFT
--- NOTE | 2016-09-09 19:15 | NUR ---
RN NOTES RECEIVED PT AWAKE, HOB ELEVATED, ON MECHANICAL VENT WITH SETTINGS IN PLACED AND TOLERATED WELL. TELEMONITOR READS SINUS RHYTHM WITH 1ST DEGREE AV BLOCK, HEART RATE AT 88. GT INTACT WITH ONGOING FEEDING AND TOLERATED WELL. IV ACCESS ON LEFT HAND INTACT, IV NURSE AT BEDSIDE TO INSERT PICC LINE OR MIDLINE ORDERED. KEPT PT COMFORTABLE AND ATTENDED. WILL CONTINUE TO MONITOR PT.
--- NOTE | 2016-09-09 19:36 | NUR ---
Midline Insertion Note: No indication for PICC line as patient is not on IV pressors. GENERAL ADMINISTRATOR Sandra Will (infectious disease) who recommends Midline insertion due to patient history of line sepsis. Inserted right upper arm 18 midline with good blood return witnessed with primary RN.
--- NOTE | 2016-09-09 19:37 | NUR ---
RN NOTES MIDLINE WITH GAUGE 18 INSERTED ON RIGHT UPPER ARM.
[2016-09-09 20:00] VITALS: BP 113/98
[2016-09-09] MEDS ORDERED: SECONDARY IV SET 1 EA INFUS.SET MC ONE (20:20)
[2016-09-09] MEDS: MICAFUNGIN SODIUM 100 MG in IV NS 0.9% 100 ML IV SCH (20:21)
[2016-09-09] MEDS: MEROPENEM 500 MG in IV NS 0.9% 50 ML IV SCH (21:18)
[2016-09-09] MEDS: LINEZOLID 600 MG TABLET PO SCH (21:39)
[2016-09-09 22:00] VITALS: BP 113/98
[2016-09-09] MEDS ORDERED: PIPERACILLIN /TAZOBACTAM 2.25 G in IV D5W 50 ML IV SCH (22:00)
[2016-09-09] MEDS: INSULIN DETEMIR 100 UNIT/ML CARTRIDGE SQ SCH (22:19)
--- NOTE | 2016-09-09 23:53 | NUR ---
RN NOTES BLOOD SUGAR CHECKED 158 MG/DL, 2 UNIT INSULIN GIVEN PER SLIDING SCALE.
[2016-09-10] VITALS (10 sets, daily range): BP systolic 110–136; BP diastolic 40–63
[2016-09-10] MEDS: IPRATROPIUM NEB FS 0.5 MG/2.5 ML AMPUL.NEB IH SCH ×4 (01:51→19:53)
[2016-09-10] MEDS: ALBUTEROL FS 2.5 MG/0.5 ML VIAL.NEB IH SCH ×3 (01:51→13:22)
[2016-09-10] MEDS: GLYTROL 1,000 ML BAG GT PRN (02:30)
[2016-09-10] MEDS: METRONIDAZOLE 500MG/ NS 100ML 500 MG in PREMIX 1 EA IV SCH ×3 (05:15→23:03)
[2016-09-10] MEDS: BLOOD SUGAR DIAGNOSTIC 1 EACH STRIP IN SCH ×4 (06:01→23:24)
--- NOTE | 2016-09-10 06:01 | NUR ---
RN NOTES BLOOD SUGAR CHECKED 137 MG/DL, 2 UNITS INSULIN GIVEN PER SLIDING SCALE.
[2016-09-10] MEDS: INSULIN REGULAR, HUMAN 100 UNIT/ML 3 ML VIAL SQ PRN ×3 (06:05→23:32)
--- NOTE | 2016-09-10 07:15 | NUR ---
RN NOTES PT ASLEEP , HOB ELEVATED AT ALL TIMES, NO SOB, NO SIGNS OF DISTRESS AND DISCOMFORT NOTED. TELE MONITOR READS SINUS RHYTHM WITH 1ST DEGREE AV BLOCK WITH HEART RATE AT 83. TOLERATING G-TUBE FEEDING WELL, NO EPISODE OF NAUSEA AND VOMITING, WHILE GIVING MORNING CARE TO THE PT, WHEN PT WAS TURNED TO HIS SIDE , PT PASSED A SMALL AMOUNT OF BLOODY STOOL, WATERY, DARK RED IN COLOR. VITAL SIGNS STABLE, AFEBRILE. ALL DUE MEDS GIVEN. SKIN CARE AND WOUND DRESSING DONE. TURNED AND REPOSITION SCHEDULED [id number]. ENDORSED TO MORNING RN FOR CONTINUITY OF CARE,
[2016-09-10 07:51] LABS: BASOPHILS # (AUTO) 0.1 /CMM (0.0-0.2); BASOPHILS % (AUTO) 0.7 % (0.0-2.0); EOSINOPHILS # (AUTO) 0.2 /CMM (0.0-0.7); EOSINOPHILS % (AUTO) 1.7 % (0.0-6.0); HEMATOCRIT 23 % (39-51); HEMOGLOBIN 7.2 g/dL (13.5-17.5); LYMPHOCYTES # (AUTO) 1.7 /CMM (0.8-4.8); LYMPHOCYTES % (AUTO) 12.8 % (20.0-44.0); MEAN CORPUSCULAR HEMOGLOBIN 30 PG (26.0-33.0); MEAN CORPUSCULAR HGB CONC 32 g/dl (31.0-36.0); MEAN CORPUSCULAR VOLUME 92 fL (80-96); MONOCYTES # (AUTO) 1.4 /CMM (0.1-1.30); MONOCYTES % (AUTO) 10.3 % (2.0-12.0); NEUTROPHILS # (AUTO) 9.9 /CMM (1.8-8.9); NEUTROPHILS % (AUTO) 74.5 % (43.0-81.0); PLATELET COUNT (AUTO) 373 /CMM (150-450); RDW COEFFICIENT OF VARIATION 20.3 (11.5-15.0); RED BLOOD CELL COUNT(AUTO) 2.46 MIL/uL (4.5-6.0); WHITE BLOOD COUNT (AUTO) 13.4 K/uL (4.3-11.0)
[2016-09-10] MEDS: ACIDOPHILUS/BULGARICUS 1 EACH TAB.CHEW GT SCH ×2 (08:46→20:52)
[2016-09-10] MEDS: LINEZOLID 600 MG TABLET PO SCH ×2 (08:46→20:52)
[2016-09-10] MEDS: ZINC SULFATE 220 MG CAPSULE GT SCH (08:46)
[2016-09-10] MEDS: predniSONE 10 MG TABLET GT SCH (08:47)
[2016-09-10] MEDS: VIT B CMPLX 3/FA/VIT C/BIOTIN 1 TAB TABLET GT SCH (08:47)
[2016-09-10] MEDS: PROSOURCE / PROSTAT (PYXIS) 30 ML UDC GT SCH (08:47)
[2016-09-10] MEDS: PANTOPRAZOLE 40 MG TABLET.DR PO SCH (08:47)
[2016-09-10] MEDS: MEROPENEM 500 MG in IV NS 0.9% 50 ML IV SCH ×2 (08:48→22:25)
[2016-09-10] MEDS: OXCARBAZEPINE 150 MG TABLET GT SCH ×2 (08:51→16:29)
[2016-09-10] MEDS ORDERED: EPOETIN ALFA (10,000 UNIT) 10,000 UNIT/ML VIAL SQ ONE (09:30)
--- NOTE | 2016-09-10 09:45 | NUR ---
TELE/RN: NOTES: Called [facility] subacute patient has no family or next kin to consent for blood transfusion and HD placement,patient is responsible fo himself.
[2016-09-10] MEDS: HYDROGEL DRESSING 90 GM TUBE TP SCH (11:01)
[2016-09-10] MEDS ORDERED: BLOOD IV SET 1 EA INFUS.SET MC ONE (15:04)
[2016-09-10] MEDS ORDERED: ALBUTEROL FS 2.5 MG/3 ML VIAL.NEB NEB PRN (15:30)
[2016-09-10] MEDS ORDERED: IV NS 0.9% 250 ML IV ONE (15:40)
--- NOTE | 2016-09-10 16:30 | NUR ---
Tele/Rn: notes Unit PRBC started, vss, afebrile, no s/s of blood transfusion reaction noted, will continue to monitor and assess.
--- NOTE | 2016-09-10 18:26 | NUR ---
Tele/RN: notes Patient reassessed per Telemetry protocol, no acute changed noted from initial shift assessment, please see completed data in flowsheets. Patient awake, with Mechanical Vent with setting: AC 22, FIO2 40%, VT 600, PEEP 5, Portex #8. SR with 1st AVB on monitor, VSS, afebrile. H/H 7.2, 1 unit PRBC today, Hemodialysis done, fluid removed 1.3 liter. NPO after midnight for HD palcement,Consent for Hemodialysis placement signed by Dr. Basurto and Dr. Alexis. Wound care done as ordered, patient returned and positioned q2h and prn. GT feeding tolerated well, with HOB elevated all the time, no residual noted. Will continue to monitor closely and intervene as appropriate.
--- NOTE | 2016-09-10 19:30 | NUR ---
RN OPEN NOTES RECEIVED PATIENT AWAKE LAYING IN BED. NO SIGNS OF DISTRESS OR DISCOMFORT. BREATHING EVEN AND UNLABORED. PATIENT ON MECHANICAL VENTILATION WITH SETTING ORDERED. IV ACCESS IN LEFT HAND AND DENISE MIDLINE, PATENT AND INTACT NO SIGNS OF REDNESS OR INFILTRATION. PATIENT ON TELE MONITORING WITH SR WITH 1ST DEGREE AVB NOTED. GT IN TACT WITH FEEDING, TOLERATING IT WELL. BED IN LOW LOCKED POSITION WITH SIDE RAILS X2. CALL LIGHT WITHIN REACH. WILL CONTINUE TO MONITOR.
[2016-09-10] MEDS: ALBUTEROL FS 2.5 MG/3 ML VIAL.NEB NEB SCH (19:54)
[2016-09-10] MEDS: MICAFUNGIN SODIUM 100 MG in IV NS 0.9% 100 ML IV SCH (20:52)
[2016-09-10] MEDS: INSULIN DETEMIR 100 UNIT/ML CARTRIDGE SQ SCH (22:00)
[2016-09-11] VITALS (14 sets, daily range): BP systolic 106–131; BP diastolic 32–90
--- NOTE | 2016-09-11 00:30 | NUR ---
RN NOTES L/M FOR DR. MORSE @ [phone] REGARDING CONSENT FOR ANESTHESIA FOR PATIENT PROCEDURE SCHEDULED TODAY AT 0730. WILL CONTINUE TO MONITOR.
[2016-09-11] MEDS: ALBUTEROL FS 2.5 MG/3 ML VIAL.NEB NEB SCH ×4 (01:22→19:26)
[2016-09-11] MEDS: IPRATROPIUM NEB FS 0.5 MG/2.5 ML AMPUL.NEB IH SCH ×4 (01:22→19:26)
[2016-09-11] MEDS: METRONIDAZOLE 500MG/ NS 100ML 500 MG in PREMIX 1 EA IV SCH ×3 (05:28→22:12)
[2016-09-11] MEDS: BLOOD SUGAR DIAGNOSTIC 1 EACH STRIP IN SCH ×3 (05:35→18:23)
--- NOTE | 2016-09-11 06:12 | NUR ---
RN NOTES LEFT [address]ND MSG FOR DR. MORSE AT [phone] REGARDING THE NEED FOR CONSENT FOR ANESTHESIA FOR PATIENTS PROCEDURE SCHEDULE TODAY AT 0730. WILL CONTINUE TO MONITOR.
--- NOTE | 2016-09-11 06:40 | NUR ---
RN NOTES SPOKE WITH DR. MORSE RECEIVED TELEPHONE CONSENT FOR ANESTHESIA FOR PATIENT PROCEDURE. WILL NOTIFY OR AND CONTINUE TO MONITOR.
--- NOTE | 2016-09-11 06:40 | NUR ---
RN NOTES RECEIVED TELEPHONE CONSENT FROM DR. MORSE FOR ANESTHESIA. WILL NOTIFY OR AND CONTINUE TO MONITOR.
[2016-09-11] MEDS ORDERED: LIDOCAINE HCL/PF 1% 30 ML SDV ONE (06:50)
[2016-09-11] MEDS ORDERED: HEPARIN SODIUM, PORCINE 1,000 UNIT/ML VIAL ONE (06:50)
--- NOTE | 2016-09-11 07:05 | NUR ---
RN CLOSING NOTES PATIENT RESTING IN BED. NO SIGNS OF DISTRESS OR DISCOMFORT. BREATHING EVEN AND UNLABORED. PATIENT ON MECHANICAL VENTILATION WITH SETTING ORDERED. IV ACCESS IN LEFT HAND AND DENISE MIDLINE, PATENT AND INTACT NO SIGNS OF REDNESS OR INFILTRATION. PATIENT ON TELE MONITORING WITH SR WITH 1ST DEGREE AVB NOTED. GT INTACT, CURRENTLY NOT CONNECTED TO FEEDING FOR PROCEDURE. PATIENT KEPT CLEAN DRY AND COMFORTABLE THROUGHOUT SHIFT. ALL NEEDS MET. BED IN LOW LOCKED POSITION WITH SIDE RAILS X2. CALL LIGHT WITHIN REACH. ENDORSED TO AM SHIFT FOR MILLIE.
--- NOTE | 2016-09-11 07:10 | NUR ---
VACCINATOR INITIAL Notes Received pt. in stable condition in bed, awake. On mechanical vent. No SOB or distress noted. IV in place and patent. G-tube feeding off for scheduled surgery. Keep pt. clean and comfortable in bed. Call light within reach. Will continue to monitor.
--- NOTE | 2016-09-11 07:20 | NUR ---
envelope folding machine adjuster Notes Pt. left the unit for scheduled surgery accompanied by two surgery RNs in stable condition. No SOB or distress noted.
[2016-09-11 08:01] LABS: INR 1.09 (0.87-1.13); PROTHROMBIN TIME 11.8 SECS (9.5-12.7)
[2016-09-11 08:02] LABS: BASOPHILS # (AUTO) 0.1 /CMM (0.0-0.2); BASOPHILS % (AUTO) 0.4 % (0.0-2.0); EOSINOPHILS # (AUTO) 0.5 /CMM (0.0-0.7); EOSINOPHILS % (AUTO) 3.2 % (0.0-6.0); HEMATOCRIT 23 % (39-51); HEMOGLOBIN 7.5 g/dL (13.5-17.5); LYMPHOCYTES # (AUTO) 2.6 /CMM (0.8-4.8); LYMPHOCYTES % (AUTO) 16.6 % (20.0-44.0); MEAN CORPUSCULAR HEMOGLOBIN 30 PG (26.0-33.0); MEAN CORPUSCULAR HGB CONC 32 g/dl (31.0-36.0); MEAN CORPUSCULAR VOLUME 93 fL (80-96); MONOCYTES % (AUTO) 12.3 % (2.0-12.0); NEUTROPHILS # (AUTO) 10.8 /CMM (1.8-8.9); NEUTROPHILS % (AUTO) 67.5 % (43.0-81.0); PLATELET COUNT (AUTO) 335 /CMM (150-450); RDW COEFFICIENT OF VARIATION 18.9 (11.5-15.0); RED BLOOD CELL COUNT(AUTO) 2.51 MIL/uL (4.5-6.0); WHITE BLOOD COUNT (AUTO) 15.9 K/uL (4.3-11.0)
[2016-09-11 08:02] LABS: CALCIUM, SERUM 8.6 mg/dL (8.5-10.1); MAGNESIUM 2.1 mg/dL (1.8-2.4); PHOSPHORUS 3.1 mg/dL (2.5-4.9)
--- NOTE | 2016-09-11 08:15 | NUR ---
EXTRACTOR LOADER AND UNLOADER Notes Pt. on unit, accompanied by two surgery RNs in stable condition. HD cath replaced with no complications
[2016-09-11] MEDS: ACIDOPHILUS/BULGARICUS 1 EACH TAB.CHEW GT SCH ×2 (08:59→20:21)
[2016-09-11] MEDS: VIT B CMPLX 3/FA/VIT C/BIOTIN 1 TAB TABLET GT SCH (08:59)
[2016-09-11] MEDS: ZINC SULFATE 220 MG CAPSULE GT SCH (08:59)
[2016-09-11] MEDS: PANTOPRAZOLE 40 MG TABLET.DR PO SCH (09:00)
[2016-09-11] MEDS: PROSOURCE / PROSTAT (PYXIS) 30 ML UDC GT SCH (09:00)
[2016-09-11] MEDS: predniSONE 10 MG TABLET GT SCH (09:00)
[2016-09-11] MEDS: LINEZOLID 600 MG TABLET PO SCH ×2 (09:00→20:21)
[2016-09-11] MEDS: HYDROGEL DRESSING 90 GM TUBE TP SCH (09:00)
[2016-09-11] MEDS: OXCARBAZEPINE 150 MG TABLET GT SCH ×2 (09:00→18:20)
[2016-09-11] MEDS: MEROPENEM 500 MG in IV NS 0.9% 50 ML IV SCH ×2 (09:01→21:14)
[2016-09-11] MEDS: GLYTROL 1,000 ML BAG GT PRN (09:01)
[2016-09-11] MEDS: LISINOPRIL (10MG) 10 MG TABLET GT SCH (09:16)
[2016-09-11] MEDS: INSULIN REGULAR, HUMAN 100 UNIT/ML 3 ML VIAL SQ PRN ×2 (12:18→18:28)
--- NOTE | 2016-09-11 14:50 | NUR ---
web interface developer notes Paged Dr. Alexis and called back and informed regarding patient hemoglobin of 7.5 and ordered 1 unit PRBC today and 1 unit PRBC on dialysis day 09/12/16. All orders carried out and noted.
[2016-09-11] MEDS ORDERED: BLOOD IV SET 1 EA INFUS.SET MC ONE (17:08)
[2016-09-11] MEDS ORDERED: IV NS 0.9% 250 ML IV ONE (17:10)
--- NOTE | 2016-09-11 19:19 | NUR ---
inside sales recruiter closing notes Patient still on blood transfusion and tolerated well, no signs and symptoms of adverse reaction. On tele monitor SR with 1st degree AV block heart rate of 88. GT feeding in placed and infusing well. Kept patient clean and comfortable in bed, call light with in patient reach, will continue to monitor accordingly. Endorsed to next shift RN to continue care.
--- NOTE | 2016-09-11 19:39 | NUR ---
PLATE WORKER HELPER - INITIAL NOTES PATIENT IN BED CURRENTLY AWAKE. NO S/S OF SOB OR ANY DISCOMFORT NOTED. VENT SETTINGS TOLERATING VERY WELL. TUBE FEEDING GLYTROL @ 50 CC/HR RUNNING, IN-PLACE AND INTACT. PATIENT CURRENTLY HAVING BLOOD TRANSFUSION, TOLERATING VERY WELL. BED IN LOW POSITION AND LOCKED. SIDERAILS X2 UP. NO SIGNIFICANT CHANGES NOTED AT THIS TIME. WILL CONTINUE TO MONITOR PATIENT.
[2016-09-11] MEDS: MICAFUNGIN SODIUM 100 MG in IV NS 0.9% 100 ML IV SCH (20:21)
[2016-09-11] MEDS ORDERED: SECONDARY IV SET 1 EA INFUS.SET MC ONE (21:27)
[2016-09-11] MEDS: INSULIN DETEMIR 100 UNIT/ML CARTRIDGE SQ SCH (22:17)
[2016-09-12] VITALS (9 sets, daily range): BP systolic 102–138; BP diastolic 50–90
[2016-09-12] MEDS: BLOOD SUGAR DIAGNOSTIC 1 EACH STRIP IN SCH ×5 (00:04→22:47)
[2016-09-12] MEDS: INSULIN REGULAR, HUMAN 100 UNIT/ML 3 ML VIAL SQ PRN ×4 (00:08→17:26)
[2016-09-12] MEDS: ALBUTEROL FS 2.5 MG/3 ML VIAL.NEB NEB SCH ×4 (01:17→19:40)
[2016-09-12] MEDS: IPRATROPIUM NEB FS 0.5 MG/2.5 ML AMPUL.NEB IH SCH ×4 (01:17→19:40)
--- NOTE | 2016-09-12 02:00 | NUR ---
SEARCH ENGINE MARKETING SPECIALIST - NOTES PATIENT IN BED ASLEEP COMFORTABLY. NO S/S OF SOB OR ANY DISCOMFORT NOTED. WILL CONTINUE TO MONITOR PATIENT.
[2016-09-12] MEDS: METRONIDAZOLE 500MG/ NS 100ML 500 MG in PREMIX 1 EA IV SCH ×3 (05:26→21:51)
[2016-09-12] MEDS: GLYTROL 1,000 ML BAG GT PRN (05:26)
[2016-09-12] MEDS: ACETAMINOPHEN 650 MG/20.3 ML UDC PO PRN (05:32)
--- NOTE | 2016-09-12 06:44 | NUR ---
RETAIL COSMETICS SALES COUNTER MANAGER - CLOSING NOTES PATIENT ASLEEP COMFORTABLY. NO S/S OF SOB OR ANY DISCOMFORT NOTED. TELE READING OF SR 80'S WITH 1ST DEGREE AV BLOCK. NO SIGNIFICANT CHANGES NOTED AT THIS TIME. BED IN LOW POSITION AND LOCKED, SIDERAILS X2 UP. NO SIGNIFICANT CHANGES NOTED AT THIS TIME. WILL ENDORSE TO MORNING NURSE FOR CONTINUITY OF CARE.
[2016-09-12] MEDS ORDERED: BLOOD IV SET 1 EA INFUS.SET MC ONE (07:28)
--- NOTE | 2016-09-12 07:30 | NUR ---
medical scribe notes Blood transfusion started, vital signs checked and recorded. Transfusion given during dialysis by [facility] 1 unit packed red blood cell. No adverse reaction noted at this time.
--- NOTE | 2016-09-12 07:34 | NUR ---
STOCK SHIPPER INITIAL NOTES Received patient in bed, awake, head of bed elevated, no SOB or distress noted. On mechanical vent and tolerated well. Dialysis on going at this time. On SR hear rate of 92 with 1st degree AV block. GT infusing well with no residual noted. Kept patient clean and comfortable in bed, call light with in patient reach, will continue to monitor accordingly.
--- NOTE | 2016-09-12 08:00 | NUR ---
workday financials consultant notes Blood transfusion done and dialysis with output of 1 liter with no signs and symptoms of adverse reaction noted. Kept patient clean and comfortable in bed.
[2016-09-12] MEDS: VIT B CMPLX 3/FA/VIT C/BIOTIN 1 TAB TABLET GT SCH (08:39)
[2016-09-12] MEDS: ACIDOPHILUS/BULGARICUS 1 EACH TAB.CHEW GT SCH ×2 (08:39→20:43)
[2016-09-12] MEDS: OXCARBAZEPINE 150 MG TABLET GT SCH ×2 (08:39→17:25)
[2016-09-12] MEDS: PANTOPRAZOLE 40 MG TABLET.DR PO SCH (08:39)
[2016-09-12] MEDS: LINEZOLID 600 MG TABLET PO SCH ×2 (08:39→20:43)
[2016-09-12] MEDS: HYDROGEL DRESSING 90 GM TUBE TP SCH (08:40)
[2016-09-12] MEDS: ZINC SULFATE 220 MG CAPSULE GT SCH (08:40)
[2016-09-12] MEDS: predniSONE 10 MG TABLET GT SCH (08:40)
[2016-09-12] MEDS: LISINOPRIL (10MG) 10 MG TABLET GT SCH (08:40)
[2016-09-12] MEDS: PROSOURCE / PROSTAT (PYXIS) 30 ML UDC GT SCH (08:40)
[2016-09-12] MEDS: MEROPENEM 500 MG in IV NS 0.9% 50 ML IV SCH ×2 (08:45→20:59)
--- NOTE | 2016-09-12 11:41 | NUR ---
contour band saw operator vertical notes Blood sugar checked 109 no coverage given. Will continue to monitor accordingly.
[2016-09-12] MEDS ORDERED: SECONDARY IV SET 1 EA INFUS.SET MC ONE (14:20)
--- NOTE | 2016-09-12 17:26 | NUR ---
diesel truck mechanic notes Blood sugar checked 102 no coverage given. Will continue to monitor accordingly.
--- NOTE | 2016-09-12 19:14 | NUR ---
employment supervisor closing notes All needs provided, attended, and anticipated. Kept patient clean and comfortable in bed, call light with in patient reach. Endorsed to next shift RN to continue care. On tele monitor SR with 1st degree AV block heart rate of 92.
--- NOTE | 2016-09-12 19:20 | NUR ---
MANAGER REGIONAL NOTES RECEIVED ON BED WITH HOB ELEVATED.ON TRACH TO VENT AC-22,TV-600,FIO2-40%,PEEP-5,PORTEX #8 TOLERATED WELL.WITH GLYTROL FEEDING VIA GT AT 50ML/HR RATE,ABDOMEN DISTENDED BUT SOFT.NO ISOLATION.WITH DENISE MIDLINE FOR MEDS,SALINE LOCK LEFT HAND INTACT AND PATENT.WILL CONTINUE TO MONITOR STATUS.
[2016-09-12] MEDS ORDERED: IV NS 0.9% 250 ML IV ONE (19:47)
--- NOTE | 2016-09-12 19:50 | NUR ---
CIGAR PACKER NOTES RT AT BEDSIDE ADMINISTERING BREATHING SCHEDULED.
[2016-09-12] MEDS: MICAFUNGIN SODIUM 100 MG in IV NS 0.9% 100 ML IV SCH (19:53)
--- NOTE | 2016-09-12 20:00 | NUR ---
FACILITY ASSISTANT NOTES DUE MYCAMINE IV HUNG ,INFUSING AT THIS TIME.
--- NOTE | 2016-09-12 21:55 | NUR ---
MS RN NOTES DUE FLAGYL IVPB HUNG
[2016-09-12] MEDS: INSULIN DETEMIR 100 UNIT/ML CARTRIDGE SQ SCH (22:00)
--- NOTE | 2016-09-12 22:58 | NUR ---
LEARNING CENTER COORDINATOR NOTES ACCU-CHECK BLOOD SUGAR CHECK 118,NO HUMULIN R COVERAGE.LEVEMIR 20 UNITS HELD,FOR POSSIBLE HYPOGLYCEMIA.WILL CONTINUE TO MONITOR
[2016-09-13] VITALS (8 sets, daily range): BP systolic 130–151; BP diastolic 46–92
[2016-09-13] MEDS: ALBUTEROL FS 2.5 MG/3 ML VIAL.NEB NEB SCH ×4 (01:09→19:32)
[2016-09-13] MEDS: IPRATROPIUM NEB FS 0.5 MG/2.5 ML AMPUL.NEB IH SCH ×4 (01:09→19:32)
--- NOTE | 2016-09-13 02:00 | NUR ---
SINGE MACHINE OPERATOR NOTES SLEEPING,NOT IN ANY FORM OF DISTRESS,O2 SAT 100%
--- NOTE | 2016-09-13 04:00 | NUR ---
WATCH GUARD GATE NOTES MORNING CARE RENDERED BY ELIZABETH PALACIOS BM,REPOSITION PER PROTOCOL.
[2016-09-13] MEDS: METRONIDAZOLE 500MG/ NS 100ML 500 MG in PREMIX 1 EA IV SCH ×2 (05:32→13:26)
[2016-09-13] MEDS: BLOOD SUGAR DIAGNOSTIC 1 EACH STRIP IN SCH ×4 (05:33→23:21)
[2016-09-13] MEDS: INSULIN REGULAR, HUMAN 100 UNIT/ML 3 ML VIAL SQ PRN ×4 (05:41→23:21)
[2016-09-13] MEDS: GLYTROL 1,000 ML BAG GT PRN (05:44)
--- NOTE | 2016-09-13 06:28 | NUR ---
ARCHEOLOGY PROFESSOR NOTES SR WITH 1ST DEGREE AV BLOCK ON THE MONITOR.NO SIGNIFICANT CHANGE IN STATUS,REPOSITION PER PROTOCOL.HOB KEPT ELEVATED FOR ASPIRATION PRECAUTION.BLOOD SUGAR CHECK 131,COVERED WITH HUMULIN R 2UNITS PER SLIDING SCALE.WILL ENDORSE TO ROME WILD FOR MILLIE.
--- NOTE | 2016-09-13 07:10 | NUR ---
licensed reactor operator Initial notes Received patient in bed, asleep, head of bed elevated, no SOB or distress noted. On mechanical vent and tolerated well saturation of 100%. GT feeding intact and infusing well. IV and HD femoral cath in placed. On tele monitor SR with 1st degree AV block heart rate of 84. Kept patient clean and comfortable in bed, call light with in patient reach, will continue to monitor accordingly.
[2016-09-13 07:28] LABS: BASOPHILS % (AUTO) 0.3 % (0.0-2.0); EOSINOPHILS # (AUTO) 0.2 /CMM (0.0-0.7); EOSINOPHILS % (AUTO) 1.3 % (0.0-6.0); HEMATOCRIT 31 % (39-51); HEMOGLOBIN 10.2 g/dL (13.5-17.5); LYMPHOCYTES # (AUTO) 1.8 /CMM (0.8-4.8); LYMPHOCYTES % (AUTO) 10.9 % (20.0-44.0); MEAN CORPUSCULAR HEMOGLOBIN 30 PG (26.0-33.0); MEAN CORPUSCULAR HGB CONC 33 g/dl (31.0-36.0); MEAN CORPUSCULAR VOLUME 92 fL (80-96); MONOCYTES # (AUTO) 1.8 /CMM (0.1-1.30); NEUTROPHILS # (AUTO) 12.3 /CMM (1.8-8.9); NEUTROPHILS % (AUTO) 76.5 % (43.0-81.0); PLATELET COUNT (AUTO) 319 /CMM (150-450); RDW COEFFICIENT OF VARIATION 19.4 (11.5-15.0); WHITE BLOOD COUNT (AUTO) 16.1 K/uL (4.3-11.0)
[2016-09-13 07:50] LABS: ALBUMIN 2.3 g/dL (3.4-5.0); BILIRUBIN,TOTAL 0.6 mg/dL (0.2-1.0); CALCIUM, SERUM 8.7 mg/dL (8.5-10.1); CREATININE 3.5 mg/dL (0.6-1.3); TOTAL PROTEIN, SERUM 7.1 g/dL (6.4-8.2)
[2016-09-13] MEDS: ZINC SULFATE 220 MG CAPSULE GT SCH (08:42)
[2016-09-13] MEDS: VIT B CMPLX 3/FA/VIT C/BIOTIN 1 TAB TABLET GT SCH (08:42)
[2016-09-13] MEDS: OXCARBAZEPINE 150 MG TABLET GT SCH ×2 (08:42→17:09)
[2016-09-13] MEDS: PANTOPRAZOLE 40 MG TABLET.DR PO SCH (08:42)
[2016-09-13] MEDS: LINEZOLID 600 MG TABLET PO SCH ×2 (08:42→20:24)
[2016-09-13] MEDS: PROSOURCE / PROSTAT (PYXIS) 30 ML UDC GT SCH (08:42)
[2016-09-13] MEDS: ACIDOPHILUS/BULGARICUS 1 EACH TAB.CHEW GT SCH ×2 (08:42→20:24)
[2016-09-13] MEDS: predniSONE 10 MG TABLET GT SCH (08:42)
[2016-09-13] MEDS: LISINOPRIL (10MG) 10 MG TABLET GT SCH (08:43)
[2016-09-13] MEDS: HYDROGEL DRESSING 90 GM TUBE TP SCH (08:43)
[2016-09-13] MEDS: MEROPENEM 500 MG in IV NS 0.9% 50 ML IV SCH (08:44)
--- NOTE | 2016-09-13 19:19 | NUR ---
family service aide closing notes All needs provided, attended, and anticipated. On tele monitor SR with 1st degree AV block. Kept patient clean and comfortable in bed, call light with in reach. Endorsed to next shift RN to continue care.
--- NOTE | 2016-09-13 19:30 | NUR ---
telegraph repeater mechanic initial notes: received report from abner taveras. pt on bed, awake, open eyes spontaneously, appears calm and cooperative, no facial grimace noted, pt is non verbal, mech vent dependent with the ff setting: ac 22 tv 600 fio2 40% peep 5 portex #8, clinical alarms check,audible, ambu bag at bed side, on continuous pulse oximetry satting 99-100%. pt on sinus rhythm with 1st degree av block, hr 90. pt has yu midline patent and flushing well, left hand iv patent and flushing well, on hl, s/p hd cath placement on right groin on 09/11/16 with dressing in placed, c/d/i, no active bleeding noted, pt has gtube in placed, receiving feeding of glytrol ultrapak at 50ml/hr. ble offloaded, yu offloaded, on isoflex marco a mattress, safety precautions for fall initiated call light in reach, will continue to monitor
[2016-09-13] MEDS ORDERED: CARVEDILOL 3.125 MG TABLET ONE (20:18)
[2016-09-13] MEDS: MICAFUNGIN SODIUM 100 MG in IV NS 0.9% 100 ML IV SCH (20:24)
[2016-09-13] MEDS: CARVEDILOL 3.125 MG TABLET PO SCH (20:24)
[2016-09-13] MEDS ORDERED: SECONDARY IV SET 1 EA INFUS.SET MC ONE (20:24)
--- NOTE | 2016-09-13 20:24 | NUR ---
teletypist notes: check residual prior to administering medication, obtained 10ml, abdomen soft to touch, with active bowel sound heard upon auscultation of the abdomen,
[2016-09-13] MEDS: INSULIN DETEMIR 100 UNIT/ML CARTRIDGE SQ SCH (22:00)
--- NOTE | 2016-09-13 22:02 | NUR ---
SPOOLING MACHINE OPERATOR NOTES: CHECKED BLOOD SUGAR AND REVEAL 113, LEVEMIR 20UNIT NOT ADMINISTERED DUE TO POSSIBLE HYPOGLYCEMIA, WILL CONTINUE TO MONITOR BLOOD SUGAR
--- NOTE | 2016-09-13 23:21 | NUR ---
PARTS CLERK NOTES: CHECKED BLOOD SUGAR AND REVEAL 104, NO INSULIN COVERAGE GIVEN PER SLIDING SCALE, PT ON GTUBE FEEDING OF GLYTROL ANDREA 50ML/HR
[2016-09-14] VITALS (9 sets, daily range): BP systolic 109–155; BP diastolic 43–83
[2016-09-14] MEDS: GLYTROL 1,000 ML BAG GT PRN ×2 (00:44→21:34)
--- NOTE | 2016-09-14 00:44 | NUR ---
ALLIED HEALTH TEACHER NOTES: CHECKED GASTRIC TUBE RESIDUAL AND OBTAINED 5ML, ADMINISTERED NEW BAG OF GLYTROL ULTRAPAK AT 50ML/HR, ALSO CHANGED ALL SUCTION SET UP AND PLACED NEW IRRIGATION TRAY
[2016-09-14] MEDS: ALBUTEROL FS 2.5 MG/3 ML VIAL.NEB NEB SCH ×4 (01:43→19:22)
[2016-09-14] MEDS: IPRATROPIUM NEB FS 0.5 MG/2.5 ML AMPUL.NEB IH SCH ×4 (01:43→19:22)
--- NOTE | 2016-09-14 03:10 | NUR ---
telephone clerk telegraph office notes: assisted information technology coordinator in providing bed bath to the pt, also wound care done and dressing changed provided,
--- NOTE | 2016-09-14 04:05 | NUR ---
telecommunication tower technician notes: received call from lab isaura cawad regarding result of gram stain respiratory, result is gram negative rods, pt remains afebrile, vs stable, pt on iv atb and also zyvox via gt q12hrs, will contact dr peguero to relay result Addendum: 09/14/16 at 0450 by WILMA LANG RN correction of entry: result for blood culture aerobic bottle, result is gram negative rods
--- NOTE | 2016-09-14 04:30 | NUR ---
CIRCULATION ASSISTANT NOTES: CONTACTED DR MORSE AT [phone], WENT THROUGH VOICEMAIL, LEFT A MESSAGE, AWAITING FOR CALLBACK
[2016-09-14] MEDS: BLOOD SUGAR DIAGNOSTIC 1 EACH STRIP IN SCH ×3 (05:12→17:11)
[2016-09-14] MEDS: INSULIN REGULAR, HUMAN 100 UNIT/ML 3 ML VIAL SQ PRN ×2 (05:15→17:27)
--- NOTE | 2016-09-14 05:15 | NUR ---
COLD STORAGE WORKER NOTES: CHECKED BLOOD SUGAR AND REVEAL 167, 4UNITS OF INSULIN GIVEN PER SLIDING SCALE
[2016-09-14] MEDS ORDERED: IV NS 0.9% 250 ML IV ONE (05:30)
--- NOTE | 2016-09-14 06:36 | NUR ---
MUSEUM INFORMATICS SPECIALIST CLOSING NOTES: PT ON BED, AWAKE, APPEARS CALM AND COMFORTABLE, NO FACIAL GRIMACE NOTED, REMAINS ON SINUS RHYTHM WITH 1ST DEGREE AVB HR 97. PT TOLERATED MECH VENT SETTING WELL, SUCTION SECRETION PRN, SPO2 REMAINS 99-100%. ABDOMEN REMAINS SOFT TO TOUCH, WITH ACTIVE BOWEL SOUND NOTED, NO ABDOMINAL DISTENTION NOTED. RIGHT GROIN PERMA CATH REMAINS IN PLACED, DRESSING C/D/I, NO ACTIVE BLEEDING NOTED. DENISE MIDLINE REMAINS PATENT AND FLUSHING WELL, ON HL. GTUBE REMAINS IN PLACED, RECEIVING FEEDING OF GLYTROL ULTRAPAK AT 50ML/HR. BUE AND BLE KEPT OFFLOADED. VS REMAINS STABLE, NEEDS ATTENDED. SAFETY PRECAUTIONS FOR FALL REMAINS ENGAGED, CALL LIGHT IN REACH. WILL ENDORSE TO DAY RN FOR MILLIE.
--- NOTE | 2016-09-14 07:15 | NUR ---
BANDER NOTES PT IN BED, ASLEEP, NO FACIAL GRIMACING NOTED, REMAINS ON SINUS RHYTHM WITH 1ST DEGREE AVB HR 97. TOLERATING MECHANICAL VENT SETTING WITH SPO2 ON 99-100%. DENISE MIDLINE REMAINS PATENT AND FLUSHING WELL, ON HL. HOB ELEVATED, GTUBE REMAINS IN PLACED, ON GTF OF GLYTROL ULTRAPAK AT 50ML/HR. BUE AND BLE KEPT OFFLOADED. CALL LIGHT PLACED WITHIN REACH, WILL CONTINUE TO MONITOR.
[2016-09-14 07:30] LABS: BASOPHILS % (AUTO) 0.2 % (0.0-2.0); EOSINOPHILS # (AUTO) 0.2 /CMM (0.0-0.7); EOSINOPHILS % (AUTO) 1.3 % (0.0-6.0); HEMATOCRIT 30 % (39-51); HEMOGLOBIN 9.5 g/dL (13.5-17.5); LYMPHOCYTES # (AUTO) 1.5 /CMM (0.8-4.8); LYMPHOCYTES % (AUTO) 8.4 % (20.0-44.0); MEAN CORPUSCULAR HEMOGLOBIN 29 PG (26.0-33.0); MEAN CORPUSCULAR HGB CONC 32 g/dl (31.0-36.0); MEAN CORPUSCULAR VOLUME 92 fL (80-96); MONOCYTES # (AUTO) 1.1 /CMM (0.1-1.30); MONOCYTES % (AUTO) 6.3 % (2.0-12.0); NEUTROPHILS # (AUTO) 14.6 /CMM (1.8-8.9); NEUTROPHILS % (AUTO) 83.8 % (43.0-81.0); PLATELET COUNT (AUTO) 285 /CMM (150-450); RDW COEFFICIENT OF VARIATION 19.6 (11.5-15.0); RED BLOOD CELL COUNT(AUTO) 3.27 MIL/uL (4.5-6.0); WHITE BLOOD COUNT (AUTO) 17.4 K/uL (4.3-11.0)
[2016-09-14 08:10] LABS: CALCIUM, SERUM 8.9 mg/dL (8.5-10.1); CREATININE 4.2 mg/dL (0.6-1.3); POTASSIUM 4.7 mmol/L (3.5-5.1)
[2016-09-14] MEDS: VIT B CMPLX 3/FA/VIT C/BIOTIN 1 TAB TABLET GT SCH (08:17)
[2016-09-14] MEDS: ZINC SULFATE 220 MG CAPSULE GT SCH (08:17)
[2016-09-14] MEDS: PANTOPRAZOLE 40 MG TABLET.DR PO SCH (08:17)
[2016-09-14] MEDS: OXCARBAZEPINE 150 MG TABLET GT SCH ×2 (08:18→17:12)
[2016-09-14] MEDS: ACIDOPHILUS/BULGARICUS 1 EACH TAB.CHEW GT SCH ×2 (08:18→21:31)
[2016-09-14] MEDS: LINEZOLID 600 MG TABLET PO SCH ×2 (08:18→21:31)
[2016-09-14] MEDS: HYDROGEL DRESSING 90 GM TUBE TP SCH (08:18)
[2016-09-14] MEDS: PROSOURCE / PROSTAT (PYXIS) 30 ML UDC GT SCH (08:18)
--- NOTE | 2016-09-14 08:35 | NUR ---
PLAYGROUND OFFICIAL NOTES PATIENT STARTED HEMODIALYSIS, BLOOD PRESSURE MEDICATION HELD.
[2016-09-14] MEDS: LISINOPRIL (10MG) 10 MG TABLET GT SCH (09:00)
[2016-09-14] MEDS: CARVEDILOL 3.125 MG TABLET PO SCH ×2 (09:00→21:31)
--- NOTE | 2016-09-14 09:19 | NUR ---
pt was on dialysis and HR 90 and saturation 96%
--- NOTE | 2016-09-14 10:30 | NUR ---
NATURAL SCIENCE MANAGER NOTES COMPLETED DIALYSIS WITH 1 LITER OF OUTPUT, LATEST BP 117/55, PATIENT IN STABLE CONDITION.
--- NOTE | 2016-09-14 12:00 | NUR ---
ELECTRONIC SCANNER OPERATOR NOTES BS 117, NO COVERAGE, NO S/SX OF HYPO OR HYPERGLYCEMIA NOTED, IN STABLE CONDITION AT THIS TIME, TURNED AND REPOSITIONED, BLE AND BUE OFF LOADED, GTF RUNNING AT 50CC/HR, WILL CONTINUE TO MONITOR.
[2016-09-14] MEDS: ACETAMINOPHEN 650 MG/20.3 ML UDC PO PRN (14:07)
--- NOTE | 2016-09-14 14:07 | NUR ---
TORRI MS NOTES REPORTED BY RT, PATIENT HAD A SEIZURE LIKE MOVEMENT AT 1330 FOR APPROX 30 SECS, PATIENT DROOLED AND EYES ROLLED BACK, NO INJURY NOTED, VITAL SIGNS OBTAINED AND STABLE, NOTED WITH TEMP OF 100.7, COOLING MEASURES PROVIDED, PLACED A CALL TO DR. MORSE, WAITING FOR A CALL BACK, WILL CONTINUE TO MONITOR. Addendum: 09/14/16 at 1438 by JORDAN STRICKLAND RN CORRECTION: CHARTERED FINANCIAL ANALYST NOTES
--- NOTE | 2016-09-14 14:49 | NUR ---
FUND DEVELOPMENT MANAGER NOTES RECEIVED A CALL BACK FROM DR. MORSE WITH NEW ORDER OF KEPPRA 500MG Q12H, ORDER NOTED AND CARRIED OUT, PER MD, HE WILL COME SEE THE PATIENT IN A BIT.
[2016-09-14] MEDS: LEVETIRACETAM SOL (5 ML) 100 MG/ML UDC GT SCH ×2 (15:39→21:31)
--- NOTE | 2016-09-14 16:41 | NUR ---
SYSTEMS TEST TECHNICIAN NOTES CONTINUES TO HAVE TEMP OF 100.9, COOLING MEASURES CONTINUED, RECEIVED NEW ORDERS FROM DR. MORSE, ORDERS NOTED AND CARRIED OUT.
--- NOTE | 2016-09-14 18:49 | NUR ---
RECORD CLERK NOTES LATEST TEMP SHOWS 99.0, COOLING MEASURES CONTINUED, TOLERATING CURRENT VENT SETTINGS WITH SPO2 95-99%, PATIENT'S IV ON LEFT HAND PULLED OUT, PATIENT STILL HAS DENISE MIDLINE PATENT AND INTACT, FLUSHES WELL, TURNED AND REPOSITIONED, SKIN CARE PROVIDED, OFFLOADED BUE AND BLE, WOUND TREATMENT RENDERED, DRESSING CHANGED, WILL ENDORSE TO COUNSELOR DORMITORY FOR MILLIE.
--- NOTE | 2016-09-14 19:30 | NUR ---
FUR BLENDER INITIAL NOTE RECEIVED PT AWAKE, EYES OPEN BUT UNABLE TO VERBALIZE NEEDS, UNABLE TO DETERMINE ORIENTATION, NO PAIN OR RESPIRATORY DISTRESS NOTED DURING PHYSICAL ASSESSMENT, WILL ANTICIPATE NEEDS AN ATTEND TO THEM HOURLY OR NEEDED, SAFETY MEASURES WILL BE KEPT IN PLACE, WILL CONTINUE TO MONITOR.
[2016-09-14] MEDS: INSULIN DETEMIR 100 UNIT/ML CARTRIDGE SQ SCH (21:33)
[2016-09-14] MEDS: MICAFUNGIN SODIUM 100 MG in IV NS 0.9% 100 ML IV SCH (21:37)
[2016-09-15] VITALS (7 sets, daily range): BP systolic 96–138; BP diastolic 39–81
[2016-09-15] MEDS: IPRATROPIUM NEB FS 0.5 MG/2.5 ML AMPUL.NEB IH SCH ×4 (00:49→19:26)
[2016-09-15] MEDS: ALBUTEROL FS 2.5 MG/3 ML VIAL.NEB NEB SCH ×4 (00:50→19:26)
[2016-09-15] MEDS: BLOOD SUGAR DIAGNOSTIC 1 EACH STRIP IN SCH ×5 (01:24→23:51)
--- NOTE | 2016-09-15 06:00 | NUR ---
WHILE CHECKING BLOOD SUGAR RESULT OF 20 NOTED, INITIATED PROTOCOL OF D50%, PT IS AROUSED EASILY, NON-VERBAL UNABLE TO ASSESS ORIENTATION, WILL CHECK BS AGAIN IN 20MIN
--- NOTE | 2016-09-15 06:20 | NUR ---
RECHECK OF BS AFTER ADMINISTRATION OF D50% IS 98, PT IS EASILY AROUSED, WILL CONTINUE TO MONITOR.
--- NOTE | 2016-09-15 06:46 | NUR ---
CLIENT SOLUTIONS DIRECTOR CLOSING NOTE PT HAD AN EPISODE OF LOW BS, RESOLVED AFTER ADMINISTERING D50%, NO PAIN OR RESPIRATORY DISTRESS NOTED DURING VECTOR CONTROL SPECIALIST, PT SLEPT INTERMITTENTLY, REPOSITIONED EVERY 2HRS TO PREVENT SKIN BREAKDOWN, WOUND TREATMENT PROVIDED ORDERED, ALL NEEDS ANTICIPATED AND ATTENDED TO, SAFETY MEASURES IN PLACE, WILL ENDORSE TO INCOMING NURSE FOR MILLIE.
[2016-09-15 07:28] LABS: ALANINE AMINOTRANSFERASE < 6 U/L (12-78); ALBUMIN 1.9 g/dL (3.4-5.0); ALKALINE PHOSPHATASE 102 U/L (46-116); ASPARTATE AMINOTRANSFERASE 20 U/L (15-37); BILIRUBIN,TOTAL 0.6 mg/dL (0.2-1.0); CALCIUM, SERUM 8.6 mg/dL (8.5-10.1); CARBON DIOXIDE 26 mmol/L (21-32); CHLORIDE 104 mmol/L (98-107); CREATININE 3.4 mg/dL (0.6-1.3); GFR 19 mL/min (>60); GLUCOSE 88 mg/dL (74-106); MAGNESIUM 2.3 mg/dL (1.8-2.4); POTASSIUM 3.9 mmol/L (3.5-5.1); SODIUM SERUM 139 mmol/L (136-145); TOTAL PROTEIN, SERUM 6.1 g/dL (6.4-8.2); UREA NITROGEN, BLOOD 48 mg/dL (7-18)
[2016-09-15] MEDS: PANTOPRAZOLE 40 MG TABLET.DR PO SCH (07:30)
[2016-09-15 07:36] LABS: BASOPHILS # (AUTO) 0.1 /CMM (0.0-0.2); BASOPHILS % (AUTO) 0.3 % (0.0-2.0); EOSINOPHILS # (AUTO) 0.4 /CMM (0.0-0.7); EOSINOPHILS % (AUTO) 2.1 % (0.0-6.0); HEMATOCRIT 27 % (39-51); HEMOGLOBIN 8.3 g/dL (13.5-17.5); LYMPHOCYTES # (AUTO) 1.8 /CMM (0.8-4.8); LYMPHOCYTES % (AUTO) 11.2 % (20.0-44.0); MEAN CORPUSCULAR HEMOGLOBIN 29 PG (26.0-33.0); MEAN CORPUSCULAR HGB CONC 31 g/dl (31.0-36.0); MEAN CORPUSCULAR VOLUME 93 fL (80-96); MONOCYTES # (AUTO) 1.7 /CMM (0.1-1.30); MONOCYTES % (AUTO) 10.5 % (2.0-12.0); NEUTROPHILS # (AUTO) 12.5 /CMM (1.8-8.9); NEUTROPHILS % (AUTO) 75.9 % (43.0-81.0); PLATELET COUNT (AUTO) 241 /CMM (150-450); RDW COEFFICIENT OF VARIATION 19.2 (11.5-15.0); RED BLOOD CELL COUNT(AUTO) 2.88 MIL/uL (4.5-6.0); WHITE BLOOD COUNT (AUTO) 16.5 K/uL (4.3-11.0)
--- NOTE | 2016-09-15 07:37 | NUR ---
RIGGING AND CONTROLS AIRCRAFT MECHANIC OEPNING NOTE PATIENT IS ASLEEP IN BED LOCKED IN LOWEST POSITION WITH SIDERAILS UP x2. NON-VERBAL. ON VENTILATION MACHINE. HAS G-TUBE WHICH IS INTACT AND PATENT. NO REDNESS AROUND G-TUBE SITE. HAS RIGHT UPPER ARM MIDLINE INTACT AND PATENT. NO FACIAL GRIMACING OR MOANING NOTED, NO PAIN. NO SOB OR DISTRESS NOTED. ALL NURSING CARE NEEDS WILL BE RENDERED. SAFETY MEASURES IMPLEMENTED.
[2016-09-15] MEDS: ACIDOPHILUS/BULGARICUS 1 EACH TAB.CHEW GT SCH ×2 (08:55→22:20)
[2016-09-15] MEDS: LEVETIRACETAM SOL (5 ML) 100 MG/ML UDC GT SCH ×2 (08:55→22:19)
[2016-09-15] MEDS: PROSOURCE / PROSTAT (PYXIS) 30 ML UDC GT SCH (08:55)
[2016-09-15] MEDS: LINEZOLID 600 MG TABLET PO SCH ×2 (08:55→22:19)
[2016-09-15] MEDS: ZINC SULFATE 220 MG CAPSULE GT SCH (08:55)
[2016-09-15] MEDS: VIT B CMPLX 3/FA/VIT C/BIOTIN 1 TAB TABLET GT SCH (08:55)
[2016-09-15] MEDS: OXCARBAZEPINE 150 MG TABLET GT SCH ×2 (08:56→16:45)
[2016-09-15] MEDS: LISINOPRIL (10MG) 10 MG TABLET GT SCH (08:59)
[2016-09-15] MEDS: CARVEDILOL 3.125 MG TABLET PO SCH ×2 (08:59→22:20)
[2016-09-15 09:17] LABS: ANISOCYTOSIS 3+; EOSINOPHILS % (MANUAL) 1 % (0-4); LYMPHOCYTES % (MANUAL) 10 % (16-48); MONOCYTES % (MANUAL) 4 % (0-11.0); NEUTROPHILS % (MANUAL) 85 (42-76); PLATELET ESTIMATE ADEQUATE
[2016-09-15] MEDS: HYDROGEL DRESSING 90 GM TUBE TP SCH (09:28)
--- NOTE | 2016-09-15 11:30 | NUR ---
MS WILD NOTE WHILE CHECKING PATIENT'S BLOOD SUGAR THIS AFTERNOON. BLOOD SUGAR CAME BACK AT 31. PROTOCOL INITIATED AND GAVE DEXTROSE 5%. WILL RECHECK IN 20 MINUTES. Addendum: 09/15/16 at 1339 by GROVER NEW RN LUCY*
--- NOTE | 2016-09-15 11:31 | NUR ---
BLOCK SPLITTER OPERATOR NOTE PATIENT IS ALERT AND EASILY AROUSABLE WITH BLOOD SUGAR AT 31. WILL CONTINUE TO MONITOR
--- NOTE | 2016-09-15 11:59 | NUR ---
MS WILD NOTE RECHECKED PATIENT'S SUGAR AFTER ADMINISTERING DEXTROSE 50%. BLOOD SUGAR AT 78. PATIENT IS ALERT, EASILY AROUSABLE. WILL CONTINUE TO MONITOR PATIENT AND BLOOD SUGAR Addendum: 09/15/16 at 1338 by GROVER NEW RN REA SMITH
[2016-09-15] MEDS ORDERED: COLISTIMETHATE SODIUM 100 MG in IV NS 0.9% 50 ML IV SCH (16:30)
--- NOTE | 2016-09-15 18:40 | NUR ---
MAIL HANDLER EQUIPMENT OPERATOR CLOSING NOTE PATIENT IS AWAKE IN BED LOCKED IN LOWEST POSITION WITH SIDERAILS UP x2. NO FACIAL GRIMACING OR MOANING NOTED FOR PAIN. NO SOB OR DISTRESS NOTED. ALL DUE MEDICATIONS GIVEN ORDERED. ALL NURSING CARE NEEDS RENDERED TO PROMPTLY. WOUND DRESSINGS CHANGED NEEDED. CALL LIGHT WITHIN REACH. PATIENT IS ON VENTILATION MACHINE. MIDLINE IS INTACT AND PATENT NO REDNESS OR SWELLING. PATIENT ON G-TUBE WHICH IS PATENT AND INTACT. HAS GLYTROL FEEDING AT 50CC/HR. TOLERATING WELL. WILL ENDORSE TO PSYCHIATRIC RN NURSE
--- NOTE | 2016-09-15 19:30 | NUR ---
HELP DESK ADMINISTRATOR INITIAL NOTE RECEIVED PT AWAKE, NON VERBAL WHICH IS HIS BASELINE, AM NURSE REPORTED LOW BS OF 31 APPROXIMATELY AROUND NOON, MD AWAKE, WILL MONITOR CLOSELY FOR S/S OF HYPOGLYCEMIA DURING OCCUPATIONAL MEDICINE PHYSICIAN, NO FACIAL GRIMACING OR RESPIRATORY DISTRESS NOTED, ON CONTINUOUS VENTILATION AND ENTERAL FEEDING (GLYTROL AT 50ML/HR) TOLERATED WELL, WILL REPOSITION PATIENT EVERY TWO HOUR TO PREVENT SKIN BREAKDOWN, WOUND TREATMENT WILL BE PROVIDED ORDERED, ALL NEEDS WILL BE ANTICIPATED AND ATTENDED TO DURING HOURLY ROUNDS AND NEEDED.
[2016-09-15] MEDS: INSULIN DETEMIR 100 UNIT/ML CARTRIDGE SQ SCH (22:00)
--- NOTE | 2016-09-15 22:21 | NUR ---
PT HAS HAD TWO EPISODES OF LOW BLOOD SUGAR, LATEST WAS 31 AT NOON ON 09/15/16, PT IS CURRENTLY 89, WILL NOT ADMINISTER LEVEMIR AND WILL CONTINUE TO MONITOR FOR NEED OF COVERAGE.
[2016-09-15] MEDS: MICAFUNGIN SODIUM 100 MG in IV NS 0.9% 100 ML IV SCH (22:24)
[2016-09-15] MEDS: ERGOCALCIFEROL (VITAMIN D 2) 50,000 UNIT CAPSULE GT SCH (22:25)
[2016-09-15] MEDS: GLYTROL 1,000 ML BAG GT PRN (23:51)
[2016-09-16] VITALS (8 sets, daily range): BP systolic 100–144; BP diastolic 29–70
[2016-09-16] MEDS: IPRATROPIUM NEB FS 0.5 MG/2.5 ML AMPUL.NEB IH SCH ×4 (01:50→20:00)
[2016-09-16] MEDS: ALBUTEROL FS 2.5 MG/3 ML VIAL.NEB NEB SCH ×4 (01:50→20:00)
[2016-09-16] MEDS: BLOOD SUGAR DIAGNOSTIC 1 EACH STRIP IN SCH ×4 (05:48→17:18)
--- NOTE | 2016-09-16 05:48 | NUR ---
LAWN CARE SPECIALIST NOTE PATIENT STABLE. BLOOD SUGAR 91. NO COVERAGE NEEDED. WILL CONTINUE TO MONITOR.
--- NOTE | 2016-09-16 06:14 | NUR ---
IT COMPLIANCE MANAGER CLOSING NOTE PT REMAINED STABLE DURING DRILL DOCTOR, BLOOD SUGAR LEVEL WITHIN NORMAL LIMITS, NOT COVERAGE PROVIDED OR NEEDED, PT REPOSITIONED EVERY 2HRS TO PREVENT SKIN BREAKDOWN, ENTERAL FEEDING TOLERATED WELL, 10CC RESIDUAL NOTED, WOUND TREATMENT RENDERED ORDERED, NO SIGNIFICANT CHANGES OBSERVED AT NIGHT, SAFETY MEASURES KEPT IN PLACE, WILL ENDORSE TO INCOMING NURSE FOR MILLIE.
[2016-09-16 07:26] LABS: BASOPHILS # (AUTO) 0.1 /CMM (0.0-0.2); BASOPHILS % (AUTO) 0.8 % (0.0-2.0); EOSINOPHILS # (AUTO) 0.3 /CMM (0.0-0.7); EOSINOPHILS % (AUTO) 2.3 % (0.0-6.0); HEMATOCRIT 27 % (39-51); HEMOGLOBIN 8.5 g/dL (13.5-17.5); LYMPHOCYTES # (AUTO) 1.5 /CMM (0.8-4.8); LYMPHOCYTES % (AUTO) 13.6 % (20.0-44.0); MEAN CORPUSCULAR HEMOGLOBIN 29 PG (26.0-33.0); MEAN CORPUSCULAR HGB CONC 31 g/dl (31.0-36.0); MEAN CORPUSCULAR VOLUME 93 fL (80-96); MONOCYTES # (AUTO) 0.8 /CMM (0.1-1.30); MONOCYTES % (AUTO) 7.7 % (2.0-12.0); NEUTROPHILS # (AUTO) 8.3 /CMM (1.8-8.9); NEUTROPHILS % (AUTO) 75.6 % (43.0-81.0); PLATELET COUNT (AUTO) 267 /CMM (150-450); RDW COEFFICIENT OF VARIATION 19.6 (11.5-15.0); RED BLOOD CELL COUNT(AUTO) 2.93 MIL/uL (4.5-6.0)
--- NOTE | 2016-09-16 07:34 | NUR ---
STRATEGIC PROCUREMENT MANAGER OPENING NOTE PATIENT IS AWAKE ALERT AND NON-VERBAL. NO PAIN AT THIS TIME. NO SOB OR DISTRESS NOTED. ON VENTILATION MACHINE. CALL LIGHT WITHIN REACH. SAFETY MEASURES IMPLEMENTED. LOW BED LOCKED IN LOWEST POSITION WITH SIDERAILS UP x2. ALL NURSING CARE NEEDS WILL BE RENDERED FOR. WILL CONTINUE TO MONITOR.
[2016-09-16] MEDS: OXCARBAZEPINE 150 MG TABLET GT SCH ×2 (08:25→16:57)
[2016-09-16] MEDS: PANTOPRAZOLE 40 MG TABLET.DR PO SCH (08:25)
[2016-09-16] MEDS: ZINC SULFATE 220 MG CAPSULE GT SCH (08:25)
[2016-09-16] MEDS: VIT B CMPLX 3/FA/VIT C/BIOTIN 1 TAB TABLET GT SCH (08:25)
[2016-09-16] MEDS: LISINOPRIL (10MG) 10 MG TABLET GT SCH (08:25)
[2016-09-16] MEDS: PROSOURCE / PROSTAT (PYXIS) 30 ML UDC GT SCH (08:26)
[2016-09-16] MEDS: LEVETIRACETAM SOL (5 ML) 100 MG/ML UDC GT SCH ×2 (08:26→22:04)
[2016-09-16] MEDS: HYDROGEL DRESSING 90 GM TUBE TP SCH (08:26)
[2016-09-16] MEDS: LINEZOLID 600 MG TABLET PO SCH ×2 (08:26→22:04)
[2016-09-16] MEDS: ACIDOPHILUS/BULGARICUS 1 EACH TAB.CHEW GT SCH ×2 (08:26→22:05)
[2016-09-16] MEDS: CARVEDILOL 3.125 MG TABLET PO SCH ×2 (08:30→21:00)
[2016-09-16] MEDS ORDERED: SILVER NITRATE APPLICATOR 1 EA BOX TP ONE (09:30)
[2016-09-16] MEDS ORDERED: LIDOCAINE HCL/PF 1% 30 ML SDV IJ ONE (09:30)
[2016-09-16] MEDS ORDERED: LIDOCAINE 1%-EPI 1:100,000 20 ML VIAL TP ONE (09:30)
--- NOTE | 2016-09-16 11:42 | NUR ---
SCRIPT EDITOR NOTE CHECKED PATIENT'S BLOOD SUGAR-115. PER SLIDING SCALE NO INSULIN TO BE GIVEN. WILL ENDORSE TO RESEARCH ANALYST NURSE
[2016-09-16 12:28] LABS: LYMPHOCYTES % (MANUAL) 22 % (16-48); MONOCYTES % (MANUAL) 1 % (0-11.0); NEUTROPHILS % (MANUAL) 77 (42-76)
[2016-09-16 12:30] LABS: ANISOCYTOSIS 2+; HYPOCHROMASIA 1+; PLATELET ESTIMATE ADEQUATE
[2016-09-16 14:32] LABS: CALCIUM, SERUM 8.2 mg/dL (8.5-10.1); POTASSIUM 4.7 mmol/L (3.5-5.1)
[2016-09-16] MEDS: COLISTIMETHATE SODIUM 150 MG in IV NS 0.9% 50 ML IV SCH (18:00)
--- NOTE | 2016-09-16 18:05 | NUR ---
PAINT ROLLER WINDER CLOSING NOTE PATIENT IS ASLEEP IN BED LOCKED IN LOWEST POSITION WITH SIDERAILS UP X2. NO PAIN NOTICED. NO FACIAL GRIMACING. NO SOB OR DISTRESS NOTED. ALL DUE MEDICATIONS GIVEN ORDERED. ALL NURSING CARE NEEDS RENDERED FOR. SAFETY MEASURES IMPLEMENTED AT ALL TIMES. MIDLINE INTACT AND PATENT. G-TUBE INTACT AND PATENT. BLOOD SUGAR CHECKED, NO INSULIN REQUIRED. WILL ENDORSE TO PLATING INSPECTOR NURSE.
--- NOTE | 2016-09-16 19:45 | NUR ---
RN OPENING NOTES: RECEIVED REPORT FROM DIPESH RN. Pt IS NON-VERBAL ON VENT. VENT SETTINGS: AC 22, PEEP 5, TV 600, PROTEX 8, FIO2 40%. CURRENTLY RECEIVING HD. HOLDING OFF ON EVENING MEDS UNTIL AFTER DIALYSIS IS COMPLETED. SAFETY MEASURES IN PLACE. BED LOW, LOCKED, HOB ELEVATED, SIDE RAILS UP, CALL LIGHT AND BEDSIDE TABLE WITHIN REACH. WILL CONTINUE TO MONITOR Pt THROUGHOUT THE NIGHT.
[2016-09-16] MEDS: MICAFUNGIN SODIUM 100 MG in IV NS 0.9% 100 ML IV SCH (22:00)
[2016-09-16] MEDS: INSULIN DETEMIR 100 UNIT/ML CARTRIDGE SQ SCH (22:00)
--- NOTE | 2016-09-16 22:00 | NUR ---
HD FINISHED. 1L OUTPUT. ADMINISTERED COLISTIMETHATE AND MYCAMINE AFTER HD WAS COMPLETED. ADMINISTERED 2100 MEDS WELL. HELD COREG DUE TO BP OF 100/29 HR 83.
[2016-09-16] MEDS ORDERED: SECONDARY IV SET 1 EA INFUS.SET MC ONE (22:05)
[2016-09-16] MEDS ORDERED: IV SET PRIMARY PUMP SET 1 EA INFUS.SET MC ONE (22:14)
[2016-09-16] MEDS ORDERED: IV NS 0.9% 250 ML IV ONE (22:14)
--- NOTE | 2016-09-16 22:30 | NUR ---
HELD LEVEMIR DUE TO BG OF 121. Pt HAS TENDENCY FOR BG TO DROP VERY LOW AFTER LEVEMIR IS GIVEN. WILL RECHECK BG AT 0000. ON CONTINUOUS GT FEEDING OF GLYTROL @50ML/HR. TOLERATING WELL.
[2016-09-17] VITALS (8 sets, daily range): BP systolic 97–131; BP diastolic 42–93
[2016-09-17] MEDS: GLYTROL 1,000 ML BAG GT PRN ×2 (00:03→12:29)
[2016-09-17] MEDS: BLOOD SUGAR DIAGNOSTIC 1 EACH STRIP IN SCH ×4 (00:03→18:00)
--- NOTE | 2016-09-17 00:26 | NUR ---
[place] ACCUCHECK BG 130. NO INSULIN COVERAGE NEEDED AT THIS TIME. WILL RECHECK BG LEVEL AT 0600. ON CONTINUOUS GT FEEDING GLYTROL @50ML/HR.
[2016-09-17] MEDS: ALBUTEROL FS 2.5 MG/3 ML VIAL.NEB NEB SCH ×4 (00:43→19:34)
[2016-09-17] MEDS: IPRATROPIUM NEB FS 0.5 MG/2.5 ML AMPUL.NEB IH SCH ×4 (00:43→19:34)
--- NOTE | 2016-09-17 06:16 | NUR ---
ACCUCHECK BG 130. NO INSULIN COVERAGE NEEDED AT THIS TIME. ON CONTINUOUS GT FEEDING OF GLYTROL @50ML/HR.
--- NOTE | 2016-09-17 06:42 | NUR ---
RN CLOSING NOTES: NO SIGNIFICANT CHANGES THROUGHOUT THE NIGHT. NO S/S OF ACUTE DISTRESS OR SOB NOTED. ALL NEEDS MET AND ATTENDED TO. SAFETY MEASURES IN PLACE. WILL ENDORSE TO DAYSHIFT RN FOR Pt's MILLIE
[2016-09-17] MEDS: PANTOPRAZOLE 40 MG TABLET.DR PO SCH (06:54)
--- NOTE | 2016-09-17 07:30 | NUR ---
MEDICAL FACILITIES SECTION DIRECTOR AM NOTE PATIENT IS AWAKE ALERT AND NON-VERBAL. WITH PORTEX #8, VENT DEPENDENT WITH CURRENT SETTING ORDERED, BREATHING EVEN AND UNLABORED, TELEMETRY READS SR WITH 1ST DEG BBB HR 80, NO SIGNS OF PAIN OR DISCOMFORT, GTF RUNNING AT 50 ML/HR, NO RESIDUAL, SEE NURSING FLOWSHEET FOR SKIN ISSUES, CALL LIGHT WITHIN REACH. SAFETY MEASURES IMPLEMENTED. LOW BED LOCKED IN LOWEST POSITION WITH SIDERAILS UP x2. WILL CONTINUE TO MONITOR.
[2016-09-17 08:17] LABS: BASOPHILS # (AUTO) 0.1 /CMM (0.0-0.2); BASOPHILS % (AUTO) 0.4 % (0.0-2.0); EOSINOPHILS # (AUTO) 0.4 /CMM (0.0-0.7); EOSINOPHILS % (AUTO) 3.6 % (0.0-6.0); HEMATOCRIT 27 % (39-51); HEMOGLOBIN 8.7 g/dL (13.5-17.5); LYMPHOCYTES # (AUTO) 2.4 /CMM (0.8-4.8); LYMPHOCYTES % (AUTO) 21.1 % (20.0-44.0); MEAN CORPUSCULAR HEMOGLOBIN 30 PG (26.0-33.0); MEAN CORPUSCULAR HGB CONC 33 g/dl (31.0-36.0); MEAN CORPUSCULAR VOLUME 92 fL (80-96); MONOCYTES # (AUTO) 1.1 /CMM (0.1-1.30); MONOCYTES % (AUTO) 9.5 % (2.0-12.0); NEUTROPHILS # (AUTO) 7.5 /CMM (1.8-8.9); NEUTROPHILS % (AUTO) 65.4 % (43.0-81.0); PLATELET COUNT (AUTO) 264 /CMM (150-450); RDW COEFFICIENT OF VARIATION 18.4 (11.5-15.0); RED BLOOD CELL COUNT(AUTO) 2.88 MIL/uL (4.5-6.0); WHITE BLOOD COUNT (AUTO) 11.5 K/uL (4.3-11.0)
[2016-09-17 08:36] LABS: CALCIUM, SERUM 8.5 mg/dL (8.5-10.1); CREATININE 3.4 mg/dL (0.6-1.3); POTASSIUM 4.4 mmol/L (3.5-5.1)
[2016-09-17] MEDS: LISINOPRIL (10MG) 10 MG TABLET GT SCH (09:00)
[2016-09-17] MEDS: CARVEDILOL 3.125 MG TABLET PO SCH ×2 (09:00→20:47)
--- NOTE | 2016-09-17 09:30 | NUR ---
REGIONAL HR MANAGER NOTES ADMINISTERED DUE MEDS. STILL AWAITING FOR DR. DONNA HAIR FOR SACRAL WOUND DEBRIDEMENT.
[2016-09-17] MEDS: OXCARBAZEPINE 150 MG TABLET GT SCH ×2 (09:49→17:59)
[2016-09-17] MEDS: PROSOURCE / PROSTAT (PYXIS) 30 ML UDC GT SCH (09:49)
[2016-09-17] MEDS: LEVETIRACETAM SOL (5 ML) 100 MG/ML UDC GT SCH ×2 (09:49→20:47)
[2016-09-17] MEDS: ACIDOPHILUS/BULGARICUS 1 EACH TAB.CHEW GT SCH ×2 (09:50→20:47)
[2016-09-17] MEDS: LINEZOLID 600 MG TABLET PO SCH ×2 (09:50→20:47)
[2016-09-17] MEDS: ZINC SULFATE 220 MG CAPSULE GT SCH (09:50)
[2016-09-17] MEDS: VIT B CMPLX 3/FA/VIT C/BIOTIN 1 TAB TABLET GT SCH (09:50)
[2016-09-17] MEDS: HYDROGEL DRESSING 90 GM TUBE TP SCH (09:51)
--- NOTE | 2016-09-17 12:34 | NUR ---
MS RN NOTES BS 144 MG/DL. 2 UNITS HUM R PER SS GIVEN.
[2016-09-17] MEDS: INSULIN REGULAR, HUMAN 100 UNIT/ML 3 ML VIAL SQ PRN (12:36)
--- NOTE | 2016-09-17 16:17 | NUR ---
MS RN NOTES PLACED A CALL TO DR. MORSE'S OFFICE, SPOKE WITH HANH, RELAYED DR. RICKI HAIR HAS NOT RETURNED CALL AND THAT PATIENT WAS SEEN BY DR. MARIAM FRANCE [NEPHRO] AND ORDERED DIALYSIS FOR KARYNA AT 0700.
--- NOTE | 2016-09-17 18:03 | NUR ---
MS RN NOTES BS 125 MG/DL. NO INSULIN COVERAGE AT THIS TIME.
[2016-09-17] MEDS: COLISTIMETHATE SODIUM 150 MG in IV NS 0.9% 50 ML IV SCH (18:13)
--- NOTE | 2016-09-17 18:49 | NUR ---
MS RN NOTES S/P SACRAL WOUND DEBRIDEMENT BY DR. HAIR
--- NOTE | 2016-09-17 19:30 | NUR ---
RN NOTES RECEIVED PT. AWAKE ON BED, VENT DEPENDENT G-TUBE FEEDING RUNNING @ 50ML/HR, SR ON TELE MONITOR HR-86, NOT IN DISTRESS, NO PAIN NOTED, SIDERAILS UPX2, CONTINUE TO MONITOR
--- NOTE | 2016-09-17 19:30 | NUR ---
RN CLOSING NOTES: NO SIGNIFICANT CHANGES,. S/P SACRAL WOUND DEBRIDEMENT BY DR. DONNA HAIR. DRESSING IN PLACE. NO S/S OF ACUTE DISTRESS OR SOB NOTED. DENISE MIDLINE FLUSHES WELL. SITE CLEAR. GTF AT 50 ML/HR ONGOING. ALL NEEDS MET AND ATTENDED TO. SAFETY MEASURES IN PLACE. WILL ENDORSE TO NEXT SHIFT FOR MILLIE.
[2016-09-17] MEDS: MICAFUNGIN SODIUM 100 MG in IV NS 0.9% 100 ML IV SCH (20:03)
--- NOTE | 2016-09-17 21:25 | NUR ---
RN NOTES CALLED DR. MORSE AND CLARIFY WITH HIM IF HE'S GOING TO DISCHARGE THE PT. JERARDO. DR. MORSE GAVE ME A TELEPHONE ORDER TO DISCHARGE THE PT. ORDER NOTED AND CARRIED OUT
--- NOTE | 2016-09-17 21:30 | NUR ---
RN NOTES DRESSING CHANGE DONE, EVENING CARE RENDERED
[2016-09-17] MEDS: INSULIN DETEMIR 100 UNIT/ML CARTRIDGE SQ SCH (22:00)
--- NOTE | 2016-09-17 22:01 | NUR ---
RN NOTES BLOOD SUGAR-122 LEVEMIR 20UNITS WAS NOT GIVEN BECAUSE PT. IS GOING TO BE DISCHARGE TONIGHT AND PT HAS A HISTORY OF BLOOD SUGAR DROPPED EVERYTIME PT IS RECEIVING THE LEVEMIR.. WILL GIVE INFORMATION TO THE FACILITY TO RECHECK THE BLOOD SUGAR @ MID NIGHT
--- NOTE | 2016-09-17 23:00 | NUR ---
RN NOTES CALLED [facility] AND GAVE REPORT TO FENG
--- NOTE | 2016-09-17 23:25 | NUR ---
RN NOTES PT. LEFT VIA AMBULANCE. PT. IS STABLE, NOT IN DISTRESS, V/S STABLE
[2016-09-18] MEDS ORDERED: EPOETIN ALFA (10,000 UNIT) 10,000 UNIT/ML VIAL SQ ONE (15:00)
== END 2016-09-17 23:25 | DRG 720 ==
LOC: ER 15:13 → TELE 17:38
PROVIDERS: ADMIT Internal Medicine Rheumatology; ATTEND Internal Medicine Rheumatology
PROC: 5A1955Z Respiratory Ventilation, Greater than 96 Consecutive Hours (ICD-10-PCS; 2016-09-08)
PROC: 05H533Z Insertion of Infusion Device into Right Subclavian Vein, Percutaneous Approach (ICD-10-PCS; 2016-09-09)
PROC: 5A1D60Z (ICD-10-PCS; 2016-09-10)
PROC: 30233N1 Transfusion of Nonautologous Red Blood Cells into Peripheral Vein, Percutaneous Approach (ICD-10-PCS; 2016-09-10)
PROC: 06HM33Z Insertion of Infusion Device into Right Femoral Vein, Percutaneous Approach (ICD-10-PCS; principal; 2016-09-11 07:48)
PROC: B51BYZA Fluoroscopy of Right Lower Extremity Veins using Other Contrast, Guidance (ICD-10-PCS; principal; 2016-09-11 07:48)
PROC: 0JHL0XZ Insertion of Tunneled Vascular Access Device into Right Upper Leg Subcutaneous Tissue and Fascia, Open Approach (ICD-10-PCS; principal; 2016-09-11 07:48)
PROC: 0JB70ZZ Excision of Back Subcutaneous Tissue and Fascia, Open Approach (ICD-10-PCS; 2016-09-17)
DX: A41.9 Sepsis, unspecified organism (principal); G93.40 Encephalopathy, unspecified; I13.2 Hypertensive heart and chronic kidney disease with heart failure and with stage 5 chronic kidney disease, or end stage renal disease; J90 Pleural effusion, not elsewhere classified; J18.9 Pneumonia, unspecified organism; Z99.11 Dependence on respirator [ventilator] status; L89.154 Pressure ulcer of sacral region, stage 4; T82.41XA Breakdown (mechanical) of vascular dialysis catheter, initial encounter; N18.6 End stage renal disease; L89.613 Pressure ulcer of right heel, stage 3; J96.11 Chronic respiratory failure with hypoxia; Z93.0 Tracheostomy status; E11.22 Type 2 diabetes mellitus with diabetic chronic kidney disease; Z99.2 Dependence on renal dialysis; Z93.1 Gastrostomy status; G40.909 Epilepsy, unspecified, not intractable, without status epilepticus; Y84.9 Medical procedure, unspecified as the cause of abnormal reaction of the patient, or of later complication, without mention of misadventure at the time of the procedure; Y92.129 Unspecified place in nursing home as the place of occurrence of the external cause; D63.8 Anemia in other chronic diseases classified elsewhere; E78.5 Hyperlipidemia, unspecified; D72.829 Elevated white blood cell count, unspecified; E66.2 Morbid (severe) obesity with alveolar hypoventilation; Z68.36 Body mass index [BMI] 36.0-36.9, adult; J98.11 Atelectasis; K21.9 Gastro-esophageal reflux disease without esophagitis; L98.9 Disorder of the skin and subcutaneous tissue, unspecified; D69.2 Other nonthrombocytopenic purpura; E83.9 Disorder of mineral metabolism, unspecified; S80.12XA Contusion of left lower leg, initial encounter; S40.022A Contusion of left upper arm, initial encounter; S40.021A Contusion of right upper arm, initial encounter; X58.XXXA Exposure to other specified factors, initial encounter; Y93.9 Activity, unspecified; I50.9 Heart failure, unspecified; F03.90 Unspecified dementia, unspecified severity, without behavioral disturbance, psychotic disturbance, mood disturbance, and anxiety; F09 Unspecified mental disorder due to known physiological condition; I25.10 Atherosclerotic heart disease of native coronary artery without angina pectoris; I69.351 Hemiplegia and hemiparesis following cerebral infarction affecting right dominant side; J44.9 Chronic obstructive pulmonary disease, unspecified; R13.10 Dysphagia, unspecified; Y71.2 Prosthetic and other implants, materials and accessory cardiovascular devices associated with adverse incidents; R47.01 Aphasia; K92.2 Gastrointestinal hemorrhage, unspecified; A04.7 Enterocolitis due to Clostridium difficile
CPT/HCPCS: 31720; 36415; 36569; 71010-TC; 74000-TC; 80048-TC; 80053-TC; 82962-TC; 83605-TC; 83735-TC; 83880; 84100-TC; 85025-TC; 85730-TC; 86850-TC; 86921-TC; 87040-TC; 87081-TC; 90935-TC; 94003-TC; 99082-TC; A4216; A4606; A6248; A6253; A6402; A6403; C1769; J0690; J0770; J0885; J1644; J1815; J1953; J2185; J2248; J2543; J2704; J2997; J3490; J7030; J7050; J7060; P9016-BL; Z7610